=== PATIENT | female | born 1950 | race Caucasian/White ===

== ENCOUNTER 2023-03-05 11:48 | Outpatient (OUT) | payer MEDICARE, SELFPAY ==
[2023-03-05 12:34] LABS: Estimated Average Glucose 200 mg/dL; Glycohemoglobin A1C 8.6 % (4.5-6.2)
== END 2023-03-05 11:49 | disposition home or self-care (01) ==
LOC: LAB 11:52
PROVIDERS: PCP Internal Medicine; Visit Provider Internal Medicine
DX: E11.65 Type 2 diabetes mellitus with hyperglycemia (principal)
CPT/HCPCS: 36415; 83036

== ENCOUNTER 2023-06-26 08:29 | Outpatient (OUT) | payer MEDICARE, SELFPAY ==
--- NOTE | 2023-06-26 08:32 | MM_ITS ---
Patient Name: JIM HALLMAN MR#: [id number] : 1950 Exam Date: 06/26/2023 Ordering Doctor: DR Loco Denis D.O. RADIOLOGY REPORT PROCEDURE: MM TOMOSYNTHESIS SCREENING BI COMPARISON: MG MAMM SCREEN 3D JOSE C CAD, 06/25/2022. MG MAMM SCREEN 3D JOSE C CAD, 06/23/2021. MG MAMM SCREEN JOSE C W CAD, 03/28/2020. MG MAMM JOSE C SCRN W CAD DIG, 10/22/2013. INDICATIONS: Screening Calculator Name NCI Breast Cancer Risk Assessment Tool 5 Year Breast Cancer Risk 2.40% Lifetime Breast Cancer Risk 6.60% Personal Breast Cancer No Personal Ovarian Cancer No Treatments None Family Cancers Aunt-maternal with breast cancer at age ~40. LOCATION: [facility] BREAST COMPOSITION: Scattered areas fibroglandular density. FINDINGS: DIAGNOSTIC CATEGORY 0--INCOMPLETE: NEED ADDITIONAL IMAGING EVALUATION. RIGHT BREAST: No significant suspicious finding. Scattered benign-appearing calcifications are present. No significant change has occurred. LEFT BREAST: 6 x 5 x 4 mm nodule within the anterior lower-inner quadrant. Spot magnification views and ultrasound evaluation are recommended. Stable, scattered benign-appearing calcifications are present. RECOMMENDATIONS: ADDITIONAL MAMMOGRAPHIC VIEWS REQUIRED: LEFT BREAST - LEFT CRANIOCAUDAL SPOT MAGNIFICATION VIEW - LEFT OBLIQUE SPOT MAGNIFICATION VIEW - ULTRASOUND: LEFT BREAST PLEASE NOTE: A NORMAL MAMMOGRAM DOES NOT EXCLUDE THE POSSIBILITY OF BREAST CANCER. A CLINICALLY SUSPICIOUS PALPABLE LUMP SHOULD BE BIOPSIED. Dictated by: Rafi Campbell M.D. on 07/02/2023 at 12:03 Approved by: Rafi Campbell M.D. on 07/02/2023 at 12:37
== END 2023-06-26 08:30 | disposition home or self-care (01) ==
LOC: LAB 08:29
PROVIDERS: PCP Internal Medicine; Visit Provider Internal Medicine
DX: E11.65 Type 2 diabetes mellitus with hyperglycemia (principal); I10 Essential (primary) hypertension; E78.01 Familial hypercholesterolemia; E06.3 Autoimmune thyroiditis; Z79.899 Other long term (current) drug therapy; Z12.31 Encounter for screening mammogram for malignant neoplasm of breast; Z80.3 Family history of malignant neoplasm of breast
CPT/HCPCS: 77063; 77067

== ENCOUNTER 2023-07-01 08:59 | Outpatient (OUT) | payer MEDICARE, SELFPAY ==
[2023-07-01 09:43] LABS: Basophils Percent Auto 0.5 % (0.2-2.0); Eosinophils Absolute Auto 0.2 10^3/uL (0.0-0.7); Eosinophils Percent Auto 2.4 % (0.9-7.0); Hematocrit 33.8 % (36.0-48.0); Immature Granulocytes Abs Auto 0.02 10^3/uL (0.00-0.03); Immature Granulocytes Pct Auto 0.3 % (0.0-0.5); Lymphocytes Absolute Auto 1.8 10^3/uL (1.2-3.8); Lymphocytes Percent Auto 28.1 % (20.5-60.0); Mean Corpuscular HGB Conc 32.5 g/dL (29.9-35.2); Mean Corpuscular Volume 92.1 fL (81.0-99.0); Mean Platelet Volume 9.5 fL (9.5-13.5); Monocytes Absolute Auto 0.3 10^3/uL (0.3-0.8); Monocytes Percent Auto 5.4 % (1.7-12.0); Neutrophils Percent Auto 63.3 % (43.0-75.0); Platelet Count 297 10^3/uL (150-450); Red Blood Count 3.67 10^6/uL (4.20-5.40); White Blood Count 6.3 10^3/uL (4.0-11.0)
[2023-07-01 10:02] LABS: Microalbumin Urine Random 3.7 mg/dL (<=30.0)
[2023-07-01 10:11] LABS: Alanine Aminotransferase 28 U/L (14-59); Anion Gap 11.9; BUN Creatinine Ratio 22.1; Calcium 8.3 mg/dL (8.5-10.1); Carbon Dioxide 28.4 mmol/L (21.0-32.0); Chloride 104 mmol/L (98-107); Chol HDL Ratio 3.5; Cholesterol 154 mg/dL (<=200); Estimated GFR (African America 57 (>=60); Estimated GFR (Non-African Ame 47 (>=60); Glucose 140 mg/dL (74-106); HDL Cholesterol 44 mg/dL (40-60); Potassium 4.3 mmol/L (3.5-5.1); Sodium 140 mmol/L (136-145); Triglycerides 159 mg/dL (<=150); VLDL CHOLESTEROL 31.8 mg/dL
[2023-07-01 10:15] LABS: Estimated Average Glucose 163 mg/dL; Glycohemoglobin A1C 7.3 % (4.5-6.2)
[2023-07-01 10:42] LABS: Thyroid Stimulating Hormone 0.163 uIU/mL (0.358-3.740)
== END 2023-07-01 09:00 | disposition home or self-care (01) ==
LOC: LAB 08:59
PROVIDERS: PCP Internal Medicine; Visit Provider Internal Medicine
DX: E11.65 Type 2 diabetes mellitus with hyperglycemia (principal); I10 Essential (primary) hypertension; E78.01 Familial hypercholesterolemia; E06.3 Autoimmune thyroiditis; Z79.899 Other long term (current) drug therapy
CPT/HCPCS: 36415; 80048; 80061; 82043; 83036; 84443; 84460; 85025

== ENCOUNTER 2023-07-15 09:11 | Outpatient (OUT) | payer MEDICARE, SELFPAY ==
--- NOTE | 2023-07-15 09:14 | US_ITS ---
Patient Name: JIM HALLMAN MR#: [id number] : 1950 Exam Date: 07/15/2023 Ordering Doctor: DR Loco Denis D.O. RADIOLOGY REPORT PROCEDURE: MM DIAGNOSTIC MAMMO UNILAT LT, 07/15/2023, 09:28 US BREAST LT LIMITED, 07/15/2023, 09:40 COMPARISON: MM TOMOSYNTHESIS SCREENING BI, 06/26/2023. INDICATIONS: Abnormal Mammogram Of Left Breast Calculator Name NCI Breast Cancer Risk Assessment Tool 5 Year Breast Cancer Risk 2.40% Lifetime Breast Cancer Risk 6.60% Personal Breast Cancer No Personal Ovarian Cancer No Treatments None Family Cancers Aunt-maternal with breast cancer at age ~40. LOCATION: [facility] BREAST COMPOSITION: Scattered areas fibroglandular density. FINDINGS: DIAGNOSTIC CATEGORY 4--SUSPICIOUS FOR MALIGNANCY. FINDING DOES NOT EXHIBIT CLASSIC FINDINGS OF BREAST CANCER: Spot compression views demonstrate a persistent 7 x 8 x 7 mm well-circumscribed mildly lobular nodule adjacent to the skin lower inner quadrant of left anterior breast. Ultrasound demonstrates a focal area of hyper echogenicity contiguous with the epidermis measuring 8.6 x 6.4 x 2.3 mm. This lesion demonstrates isovascularity to the surrounding tissues. Given the proximity of the lesion to the skin surface, this lesion is not amenable to a core biopsy as sampling of the skin would likely result. Therefore 2 options are open surgical biopsy or fine needle aspiration. RECOMMENDATIONS: ULTRASOUND-GUIDED fine needle ASPIRATION: LEFT BREAST PLEASE NOTE: A NORMAL MAMMOGRAM DOES NOT EXCLUDE THE POSSIBILITY OF BREAST CANCER. A CLINICALLY SUSPICIOUS PALPABLE LUMP SHOULD BE BIOPSIED. Dictated by: Rusty Galeano MD on 07/15/2023 at 09:54 Approved by: Rusty Galeano MD on 07/15/2023 at 09:57
== END 2023-07-15 09:12 | disposition home or self-care (01) ==
LOC: MAMMO 09:12
PROVIDERS: PCP Internal Medicine; Visit Provider Internal Medicine
DX: R92.8 Other abnormal and inconclusive findings on diagnostic imaging of breast (principal); N63.24 Unspecified lump in the left breast, lower inner quadrant
CPT/HCPCS: 76642; 77065

== ENCOUNTER 2023-07-16 09:11 | Day surgery (SDC) | payer MEDICARE, SELFPAY ==
--- NOTE | 2023-07-16 09:16 | US_ITS ---
[address] [address] Patient Name: JIM HALLMAN MRN: [id number] date: 1950 Sex: F Assigned Patient Location: US Current Patient Location: Accession/Order Number: [id number] Exam Date: 07/16/2023 09:30 Report Date: 07/16/2023 11:29 At the request of: NON-STAFF PHYSICIAN Procedure: US biopsy FNA EXAMINATION: US biopsy FNA HISTORY: Abnormal Mammogram COMPARISON: No relevant comparison available. TECHNIQUE: After obtaining informed consent, an ultrasound-guided biopsy was performed in the usual sterile manner. FINDINGS: IMAGING: Ultrasound BIOPSY NEEDLE: 25-gauge, 2 inch SPECIMEN TYPE, #, LOCATION: 3 fine-needle aspirates, superficial left breast mass MEDICATION: 2 cc 1% buffered lidocaine COMPLICATIONS: None. LABORATORY: Pathology OTHER: Negative. US/US biopsy FNA IMPRESSION: Uneventful ultrasound guided biopsy. The patient was instructed to obtain follow up care and biopsy results from the referring physician. Electronically authenticated by: SANTINO CHAKRABORTY Date: 07/16/2023 11:29
[2023-07-16 09:30] VITALS: BP 107/80; PULSE 90; O2SAT 97
[2023-07-16] MEDS: LIDOCAINE HCL 10 ML, SODIUM BICARBONATE 1 MEQ INJ (10:20)
--- NOTE | 2023-07-16 11:17 | SUR.PREOP ---
07/15/23 Instructed pt on procedure, date, time, and prep.
== END 2023-07-16 10:45 | disposition home or self-care (01) ==
LOC: US 09:11
PROVIDERS: Radiology Diagnostic Radiology; PCP Internal Medicine
DX: N63.25 Unspecified lump in the left breast, overlapping quadrants (principal)
CPT/HCPCS: 10005; 88173

== ENCOUNTER 2023-10-18 13:07 | Outpatient (OUT) | payer MEDICARE, SELFPAY ==
--- OUTSIDE RECORDS SUMMARY | 2023-10-18 13:22 | XMS_ITS | CCD ---
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 Name Role Phone Loco Denis Unavailable Devon DEGROOT Attending Unavailable NILL, Raheem Santana Attending Unavailable NILL, Raheem Santana Attending Unavailable NILL, Raheem Santana Attending Unavailable BALL, LOCO Referring Unavailable BALL, DR SALCEDO Admitting Unavailable BALL, DR SALCEDO Attending Unavailable BALL, DR SALCEDO Primary Care Unavailable BALL, DR SALCEDO Primary Care Unavailable NILL ., DR QUEVEDO Admitting Unavailable NILL ., DR QUEVEDO Attending Unavailable NILL ., DR QUEVEDO Consulting Unavailable SIENA, KENNETH Consulting Unavailable ELEAZAR, YVETTE Consulting Unavailable BALL, DR SALCEDO Admitting Unavailable BALL, DR SALCEDO Attending Unavailable BALL, DR SALCEDO Consulting Unavailable BALL, DR SALCEDO Primary Care Unavailable LEEPER, DR SANTINO Appiah Consulting Unavailable BALL, DR SALCEDO Admitting Unavailable BALL, DR SALCEDO Attending Unavailable BALL, DR SALCEDO Consulting Unavailable BALL, DR SALCEDO Primary Care Unavailable BALL, DR SALCEDO Admitting Unavailable BALL, DR SALCEDO Primary Care Unavailable BALL, DR SALCEDO Attending Unavailable BALL, DR SALCEDO Consulting Unavailable BALL, DR SALCEDO Admitting Unavailable BALL, DR SALCEDO Attending Unavailable BALL, DR SALCEDO Consulting Unavailable BALL, DR SALCEDO Primary Care Unavailable LISSETTEER, DR SOTO Santana Consulting Unavailable BALL, DR SALCEDO Admitting Unavailable BALL, DR SALCEDO Attending Unavailable BALL, DR SALCEDO Consulting Unavailable BALL, DR SALCEDO Primary Care Unavailable Allergies Allergy Classification Reported Allergen(s) Allergy Type Date of Onset Reaction(s) Facility (5 sources) Penicillin; 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: [penicillin] Drug Allergy Unknown [facility] Repository (20 sources) Substance with sulfonamide structure and antibacterial mechanism of action (substance) Drug allergy Unknown [facility] Other (2 sources) Alfentanil; 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: [Alfenta] Drug Allergy [facility] Repository (2 sources) Midazolam; 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: [Versed] Drug Allergy [facility] Repository (1 source) Penicillins; 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: [penicillins] Propensity to adverse reactions (disorder) [facility] Repository (1 source) Sulfonamides (Antibiotic); 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: [sulfa drugs] Propensity to adverse reactions (disorder) [facility] Repository (1 source) Sulfonamides (Antibiotic) Drug allergy (disorder) [facility] Repository (18 sources) Substance with penicillin structure and antibacterial mechanism of action (substance) Drug allergy Unknown Neronote Other Medications Current Medications Medication Drug Class(es) Dates Sig (Normalized) Sig (Original) amLODIPine 5 mg oral tablet (18 sources) Dihydropyridine Calcium Channel Donna take 1 tablet by mouth once daily amLODIPine Besylate 5 MG TAKE 1 TABLET BY MOUTH EVERY DAY Active aspirin 81 mg oral tablet (20 sources) Platelet Aggregation Inhibitor, Nonsteroidal Anti-inflammatory Drug take 1 tablet by mouth once daily Aspirin EC 81 MG 1 tablet Orally Once a day Active atorvastatin 40 mg oral tablet (20 sources) HMG-CoA Reductase Inhibitor take 1 tablet by mouth once daily in the evening Atorvastatin Calcium 40 MG TAKE 1 TABLET BY MOUTH EVERY DAY IN THE EVENING for 90 Active azithromycin 250 mg oral tablet (12 sources) Macrolide Antimicrobial Start: 07-19-2023 Azithromycin 250 MG as directed Orally daily for 5 days Jul, Active Azithromycin 250 MG as directed Orally daily for 5 days Active carvedilol 12.5 mg oral tablet (20 sources) alpha-Adrenergic Donna, beta-Adrenergic Donna Carvedilol 12.5 MG TAKE 1 TABLET BY MOUTH TWICE A DAY WITH FOOD FOR 30 DAYS for 90 Active chlorthalidone 25 mg oral tablet (20 sources) Thiazide-like Diuretic Start: 09-27-2022 Chlorthalidone 25 MG 1 Orally qod for 30 days Sep, Active Start: 09-27-2022 take 0.5 tablet by m outh once daily Chlorthalidone 25 MG 1/2 tablet Orally Once a day Sep, Active glipiZIDE (20 sources) Sulfonylurea glipiZIDE ER 10 MG TAKE 2 TABLETS BY MOUTH EVERY DAY FOR 30 DAYS for 90 Active take 2 tablets by mouth once wilmer ly glipiZIDE ER TAKE 2 TABLETS BY MOUTH EVERY DAY FOR 30 DAYS Active take 1 tablet by florian th every twenty-four hours glipiZIDE ER 10 MG [address] Orally Once a day Active hydroCHLOROthiazide 25 mg oral tablet (2 sources) Thiazide Diuretic Start: 08-21-2023 take 1 tablet by mouth every twenty-four hours hydroCHLOROthiazide 25 MG 1 tablet in the morning Orally Once a day for 90 days Aug, Active levothyroxine sodium 0.1 mg oral tablet (20 sources) l-Thyroxine take 1 tablet by mouth once daily Levothyroxine Sodium 100 MCG TAKE 1 TABLET BY MOUTH ON AN EMPTY STOMACH ONCE A DAY for 90 Active Levothyroxine So dium 100 MCG TAKE 1 TABLET BY MOUTH ONCE A DAY ON AN EMPTY STOMACH Orally Once a day for 30 days Active take 1 tablet by mouth once haseeb y Levothyroxine Sodium 112 MCG TAKE 1 TABLET BY MOUTH ONCE A DAY ON AN EMPTY STOMACH Active take 1 tablet by mouth once haseeb y Levothyroxine Sodium 137 MCG 1 tablet Orally Once a day, on an empty stomach for 30 days Active take 1 tablet by florian th once daily in the morning Levothyroxine Sodium 125 MCG 1 tablet in the morning on an empty stomach Orally Once a day Active lisinopril 40 mg oral tablet (20 sources) Angiotensin Converting Enzyme Inhibitor Lisinopril 40 MG KELLY E 1 TABLET BY MOUTH EVERY DAY Orally Once a day for 30 days Active metFORMIN hydrochloride 1000 mg oral tablet (20 sources) Biguanide metFORMIN HCl 10 00 MG 1 Orally Once a day Active take 1 tablet by mouth twice wilmer ly metFORMIN HCl 1000 MG TAKE 1 TABLET BY MOUTH TWICE A DAY for 90 Active OneTouch Ultra - (20 sources) OneTouch Ultra - USE TO TEST BLOOD SUGAR DAILY for 90 Active OneTouch Ultra - Use to test home BS In Vitro daily for 30 days Active pioglitazone 15 mg oral tablet (18 sources) Peroxisome Proliferator Receptor alpha Agonist, Peroxisome Proliferator Receptor gamma Agonist, Thiazolidinedione Start: 03-07-2023 take 1 tablet by mouth every twenty-four hours Pioglitazone HCl 15 MG 1 tablet Orally Once a day Mar, Active Problems Active Problems Problem Classification Problem Date Documented Date Episodic/Chronic Abdominal hernia (1 source) Diaphragmatic hernia without obstruction or gangrene; 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: [DIAPH HERNIA W/O OBST/GANGRENE] Onset: 01-01-2023 Episodic Acute bronchitis (3 sources) Acute bronchitis due to other specified organisms Episodic Calculus of urinary tract (20 sources) History of calculus of kidney; 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: [Personal history of urinary calculi] Episodic Deficiency and other anemia (5 sources) Anemia, unspecified; 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: [ANEMIA UNSPECIFIED] Onset: 11-25-2022 Episodic Diabetes mellitus with complications (20 sources) Type 2 diabetes mellitus; 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: [Type 2 diabetes mellitus with hyperglycemia] Onset: 01-16-2019 Chronic Diabetes mellitus without complication (1 source) Type 2 diabetes mellitus without complications; 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: [TYPE 2 DM WITHOUT COMPLICATIONS] Onset: 01-01-2023 Chronic Disorders of lipid metabolism (20 sources) Pure hypercholesterolemia; 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: [Familial hypercholesterolemia] Onset: 06-16-2022 Chronic Diverticulosis and diverticulitis (1 source) Diverticulosis of large intestine without perforation or abscess without bleeding; 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: [DVRTCLOS LG INT NO PERF/ABSC W/O BL] Onset: 01-01-2023 Chronic Essential hypertension (20 sources) Essential hypertension; 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: [Essential (primary) hypertension] Onset: 06-16-2022 Chronic Mood disorders (20 sources) Recurrent major depression; 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: [Major depressive disorder, recurrent, unspecified] Chronic Occlusion or stenosis of precerebral arteries (20 sources) Right carotid artery stenosis; 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: [Occlusion and stenosis of right carotid artery] Chronic Osteoarthritis (20 sources) Idiopathic osteoarthritis; 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, right knee] Onset: 01-26-2014 Chronic Other aftercare (4 sources) H/O: high risk medication; 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: [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] Episodic Other aftercare (1 source) group home (current) use of aspirin; 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: [PRISON CURRENT USE OF ASPIRIN] Onset: 01-01-2023 Episodic Other aftercare (1 source) group home (current) use of oral hypoglycemic drugs; 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: [PRISON USE ORAL HYPOGLYCEMIC DX] Onset: 01-01-2023 Episodic Other aftercare (3 sources) Other [facility] (current) drug therapy; 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: [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] Onset: 01-01-2023 Episodic Other non-traumatic joint disorders (1 source) Pain in right hip; 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: [PAIN IN RIGHT HIP] Onset: 11-25-2022 Episodic Other nutritional; endocrine; and metabolic disorders (4 sources) Obesity; 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: [Obesity, unspecified] Chronic Other nutritional; endocrine; and metabolic disorders (18 sources) Obesity caused by energy imbalance; 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: [Other obesity due to excess calories] Chronic Other nutritional; endocrine; and metabolic disorders (20 sources) Body mass index 30+ - obesity; 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: [Body mass index (BMI) 31.0-31.9, adult] Chronic Other nutritional; endocrine; and metabolic disorders (2 sources) Other obesity due to excess calories Chronic Other nutritional; endocrine; and metabolic disorders (2 sources) Body mass index (BMI) 32.0-32.9, adult Chronic Other screening for suspected conditions (not mental disorders or infectious disease) (7 sources) Encounter for screening mammogram for malignant neoplasm of breast; 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: [Other abnormal and inconclusive findings on diagnostic imaging of breast] Onset: 06-25-2022 Episodic Other upper respiratory disease (4 sources) Allergic rhinitis; 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: [Vasomotor rhinitis] Chronic Spondylosis; intervertebral disc disorders; other back problems (20 sources) Lumbosacral spondylosis with radiculopathy; 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: [Other spondylosis with radiculopathy, lumbosacral region] Onset: 12-28-2016 Chronic Thyroid disorders (20 sources) Autoimmune hypothyroidism; 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: [Autoimmune thyroiditis] Onset: 01-01-2023 Chronic Unclassified (3 sources) LOW BACK PAIN, UNSPECIFIED; 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: [LOW BACK PAIN, UNSPECIFIED] Onset: 11-22-2022 Past or Other Problems Problem Classification Problem Date Documented Da te Episodic/Chronic Residual codes; unclassified (1 source) Family history of malignant neoplasm of breast; 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: [FAMILY HX MALIG NEOPLASM OF BREAST] Onset: 06-27-2022 Episodic Unclassified (1 source) LOW BACK PAIN, UNSPECIFIED; 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: [LOW BACK PAIN, UNSPECIFIED] Onset: 11-21-2022 Unclassified (1 source) Acute left-sided low back pain without sciatica M54.50 Results Test Name Value Interpretation Reference Range Facility Outside Colonoscopyon 2022 Outside Colonoscopy [id number]: 127 Normal [facility] Reminderson 12-27-2022 Reminders - From: Bethany Smith LPN To: N - Clinical; Sent: 12/27/2022 10:52:47 EDT Show up: 11/26/2032 07:00:00 EDT Subject: colonoscopy recall Due Date/Time: 12/26/2032 07:00:00 EDT Reminder/Recall Patient due for screening colonoscopy 12/26/2032. Normal [facility] POINT OF CARE GLUCOSEon 05-2 Glucose [Mass/Vol] 261 mg/dL Critically high 74-106 [facility] Comment on above: Performed By: #### P OCGLUC #### [facility] [address] [place] [address] Dr. Rusty Armstrong Consent for Procedure/Surger yon 12-06-2022 Consent for Procedure/Surgery [id number]: 127 Normal [facility] Facesheeton 12-06-2022 Facesheet [id number]: 127 Normal [facility] Ambulatory Visit Summaryon 0 12-05-2022 Ambulatory Visit Summary HILDA COOL :1950 Visit Date:12/05/2022 Ambulatory Visit Instructions Your Diagnosis Anemia Your Care Team Attending Physician - BERNARD ZUNIGA, Raheem Santana Primary Care Physician - LOCO DENIS DO This Is Your Medications List Contact prescribing physician if questions or concerns aspirin (aspirin 81 mg Oral EC Tab) atorvastatin carvedilol (carvedilol 12.5 mg Tab) chlorthalidone (chlorthalidone 25 mg Tab) glipiZIDE (glipiZIDE 10 mg ER Tab) levothyroxine lisinopril metformin potassium bicarbonate (Effer-K 25 mEq oral tablet, effervescent) Procedures Performed ESWL of kidney (02/04/2020), Colonoscopy (02/13/2012), Cystoscopy (12/07/2011), ESWL of kidney (06/08/2010), section, section, section, Cystoscopy. Discharge Vitals Heart Rate (Peripheral) 70 Respiratory Rate 16 Blood Pressure 132/82 Height 162.5 cm Height 64 in Weight 81.8 kg Weight 179.96 lb BMI 30.98 Medications What How Much When Instructions Unchanged aspirin (aspirin 81 mg Oral EC Tab) 1 Tablets By Mouth Every day Contact prescribing physician if questions or concerns Unchanged atorvastatin 40 Milligram By Mouth Every day Contact prescribing physician if questions or concerns Unchanged carvedilol (carvedilol 12.5 mg Tab) 1 Tablets By Mouth 2 times a day Contact prescribing physician if questions or concerns Unchanged chlorthalidone (chlorthalidone 25 mg Tab) 0.5 Tablets By Mouth Every day Contact prescribing physician if questions or concerns Unchanged glipiZIDE (glipiZIDE 10 mg ER Tab) 1 Tablets By Mouth Every day Contact prescribing physician if questions or concerns Unchanged levothyroxine 125 Microgram By Mouth Every day Contact prescribing physician if questions or concerns Unchanged lisinopril 40 Milligram By Mouth Every day Contact prescribing physician if questions or concerns Unchanged metformin 1,000 Milligram By Mouth 2 times a day Contact prescribing physician if questions or concerns Unchanged potassium bicarbonate (Effer-K 25 mEq oral tablet, effervescent) 1 Tablets By Mouth 2 times a day Contact prescribing physician if questions or concerns Allergies Alfenta (Mild) Versed (Mild) penicillins (Moderate) sulfa drugs (Moderate) Problems Ongoing - Any problem that you are currently receiving treatment for. Anemia Autoimmune hypothyroidism BMI 30.0-30.9,adult Essential hypertension History of nephrolithiasis Lumbosacral spondylosis with radiculopathy Pure hypercholesterolemia Recurrent major depression Right carotid artery stenosis BRII (stress urinary incontinence, female) Type 2 diabetes mellitus Normal [facility] Physician Referralon 023 Physician Referral [id number]: 127 Normal [facility] Physician Referralon 023 Physician Referral [id number]: 127 Normal [facility] FOLATE ([facility])on 3 Folate >20.0 Normal >3.[address] [facility] Comment on above: Result Comment: A se rum folate concentration of less than 3.1 ng/mL is considered to represent clinical deficiency. Performed By: #### F ETIBC, FERR, B12FOL #### [facility] [address] [place] [address] Dr. Rusty Armstrong CBC AUTO DIFFon 11-20-2022 BASO # 0.0 103/ul Normal 0.0-0.[address] [facility] Comment on above: Performed By: #### F ETIBC, FERR, B12FOL #### [facility] [address] [place] [address] Dr. Rusty Armstrong Basophils/100 WBC (Bld) 0.7 % Normal 0.2-2.0 [facility] Comment on above: Performed By: #### F ETIBC, FERR, B12FOL #### [facility] [address] [place] [address] Dr. Rusty Armstrong EO # 0.2 103/ul Normal 0.0-0.7 [facility] Comment on above: Performed By: #### F ETIBC, FERR, B12FOL #### [facility] [address] [place] [address] Dr. Rusty Armstrong Eosinophils/100 WBC (Bld) 3.1 % Normal 0.9-7.[address] [facility] Comment on above: Performed By: #### F ETIBC, FERR, B12FOL #### [facility] [address] [place] [address] Dr. Rusty Armstrong Erythrocyte distribution width (RBC) [Ratio] 12.6 % Normal 11.0-15.[address] [facility] Comment on above: Performed By: #### F ETIBC, FERR, B12FOL #### [facility] [address] [place] [address] Dr. Rusty Armstrong Hematocrit (Bld) [Volume fraction] 33.2 % Critically low 36.0-48.[address] [facility] Comment on above: Performed By: #### F ETIBC, FERR, B12FOL #### [facility] [address] [place] [address] Dr. Rusty Armstrong Hemoglobin (Bld) [Mass/Vol] 11.5 g/dL Critically low 12.0-16.[address] [facility] Comment on above: Performed By: #### F ETIBC, FERR, B12FOL #### [facility] [address] [place] [address] Dr. Rusty Armstrong IG # 0.01 10e3/ul Normal 0.00-0.[address] [facility] Comment on above: Performed By: #### F ETIBC, FERR, B12FOL #### [facility] [address] [place] [address] Dr. Rusty Armstrong IG % 0.2 % Normal 0.0-0.[address] [facility] Comment on above: Performed By: #### F ETIBC, FERR, B12FOL #### [facility] [address] [place] [address] Dr. Rusty Armstrong LYMPH # 1.7 103/ul Normal 1.2-3.[address] [facility] Comment on above: Performed By: #### F ETIBC, FERR, B12FOL #### [facility] [address] [place] [address] Dr. Rusty Armstrong Lymphocytes/100 WBC (Bld) 31.4 % Normal 20.5-60.[address] [facility] Comment on above: Performed By: #### F ETIBC, FERR, B12FOL #### [facility] [address] [place] [address] Dr. Rusty Armstrong MANUAL DIFF REQ NO Normal [facility] Comment on above: Performed By: #### F ETIBC, FERR, B12FOL #### [facility] [address] [place] [address] Dr. Rusty Armstrong MCH (RBC) [Entitic mass] 30.2 pg Normal 26.7-34.[address] [facility] Comment on above: Performed By: #### F ETIBC, FERR, B12FOL #### [facility] [address] [place] [address] Dr. Rusty Armstrong MCHC (RBC) [Mass/Vol] 34.6 g/dL Normal 29.9-35.[address] [facility] Comment on above: Performed By: #### F ETIBC, FERR, B12FOL #### [facility] [address] [place] [address] Dr. Rusty Armstrong MCV (RBC) [Entitic vol] 87.1 fL Normal 81.0-99.0 [facility] Comment on above: Performed By: #### F ETIBC, FERR, B12FOL #### [facility] [address] [place] [address] Dr. Rusty Armstrong MONO # 0.4 103/ul Normal 0.3-0.[address] [facility] Comment on above: Performed By: #### F ETIBC, FERR, B12FOL #### [facility] [address] [place] [address] Dr. Rusty Armstrong Monocytes/100 WBC (Bld) 6.5 % Normal 1.7-12.[address] [facility] Comment on above: Performed By: #### F ETIBC, FERR, B12FOL #### [facility] [address] [place] [address] Dr. Rusty Armstrong NEUT # 3.2 103/ul Normal 1.4-6.5 [facility] Comment on above: Performed By: #### F ETIBC, FERR, B12FOL #### [facility] [address] [place] [address] Dr. Rusty Armstrong Neutrophils/100 WBC (Bld) 58.1 % Normal 43.0-75.[address] [facility] Comment on above: Performed By: #### F ETIBC, FERR, B12FOL #### [facility] [address] [place] [address] Dr. Rusty Armstrong Platelet mean volume (Bld) [Entitic vol] 9.2 fL Critically low 9.5-13.5 [facility] Comment on above: Performed By: #### F ETIBC, FERR, B12FOL #### [facility] [address] [place] [address] Dr. Rusty Armstrong PLT 317 103/ul Normal 150-450 [facility] Comment on above: Performed By: #### F ETIBC, FERR, B12FOL #### [facility] [address] [place] [address] Dr. Rusty Armstrong RBC 3.81 106/ul Critically low 4.20-5.40 [facility] Comment on above: Performed By: #### F ETIBC, FERR, B12FOL #### [facility] [address] [address] [address] Rusty Armstrong WBC 5.6 103/ul Normal 4.0-11.[address] [facility] Comment on above: Performed By: #### F ETIBC, FERR, B12FOL #### [facility] [address] [address] [address] Rusty Armstrong FERRITINon 11-20-2022 Ferritin [Mass/Vol] 264.0 ng/mL Critically high 8.0-252.[address] [facility] Comment on above: Performed By: #### V ITB12, FERR, FETIBC #### [facility] [address] [address] [address] Rusty Armstrong GLYCOHEMOGLOBIN A1Con 2022 ADA RECOMMENDATION SEE BELOW Normal [facility] Comment on above: Result Comment: ADA RECOMMENDED LIMIT 4.0 - 6.0 ADA THERAPEUTIC TARGET < 7.0 ACTION SUGGESTED > 7.0 Performed By: #### F ETIBC, FERR, B12FOL #### [facility] [address] [address] [address] Rusty Armstrong Glucose [Mass/Vol] 174 mg/dL Normal [facility] Comment on above: Performed By: #### F ETIBC, FERR, B12FOL #### [facility] [address] [address] [address] Rusty Armstrong HbA1c (Bld) [Mass fraction] 7.7 % Critically high 4.5-6.[address] [facility] Comment on above: Performed By: #### F ETIBC, FERR, B12FOL #### [facility] [address] [address] [address] Rusty Armstrong IRON AND TIBCon 11-20-2022 % SATURATION 22.6 % Normal [facility] Comment on above: Performed By: #### V ITB12, FERR, FETIBC #### [facility] [address] [address] [address] Rusty Armstrong Iron [Mass/Vol] 76.0 ug/dL Normal 50.0-170.0 [facility] Comment on above: Performed By: #### V ITB12, FERR, FETIBC #### [facility] [address] [address] [address] Rusty Armstrong TIBC DIRECT 336.0 ug/dL Normal 250.0-450.0 [facility] Comment on above: Performed By: #### V ITB12, FERR, FETIBC #### [facility] [address] [address] [address] Rusty Armstrong TSHon 11-20-2022 TSH 0.049 uIU/mL Critically low 0.358-3.740 [facility] Comment on above: Performed By: #### T SH #### [facility] [address] [place] [address] Dr. Rusty Armstrong VITAMIN B12on 11-20-2022 Cobalamin (Vitamin B12) [Mass/Vol] 372.0 pg/mL Normal 193.0-986.[address] [facility] Comment on above: Performed By: #### V ITB12, FERR, FETIBC #### [facility] [address] [place] [address] Dr. Rusty Armstrong XR LSPINE W_OBLS AND FLEX_EX Ton 11-20-2022 XR LSPINE W_OBLS AND FLEX_EXT EXAMINATION: XR LSPINE W_OBLS AND FLEX_EXT HISTORY: Lumbosacral spondylosis with radiculopathy ; chronic lumbar pain radiating into right leg COMPARISON: No relevant comparison available. FINDINGS: BONES: Mild degenerative facet arthropathy L4-L5, L5-S1. No scoliosis, fracture, or visible bony lesion. No change in alignment during flexion and extension. DISC SPACES: Mild narrowing at all lumbar levels. PARASPINOUS: No paraspinous abnormality is seen. OTHER: Negative. IMPRESSION: 1. Multilevel mild degenerative disc disease. 2. Mild-moderate degenerative facet arthropathy of the lower lumbar spine. Electronically authenticated by: SOTO SCHREIBER Date: 2022-11-20 15:34 Normal [facility] CBC AUTO DIFFon 08-31-2022 BASO # 0.0 103/ul Normal 0.0-0.[address] [facility] Comment on above: Performed By: #### F ETIBC, FERR, B12FOL #### [facility] [address] [place] [address] Dr. Rusty Armstrong Basophils/100 WBC (Bld) 0.3 % Normal 0.2-2.[address] [facility] Comment on above: Performed By: #### F ETIBC, FERR, B12FOL #### [facility] [address] [place] [address] Dr. Rusty Armstrong EO # 0.1 103/ul Normal 0.0-0.7 [facility] Comment on above: Performed By: #### F ETIBC, FERR, B12FOL #### [facility] [address] [place] [address] Dr. Rusty Armstrong Eosinophils/100 WBC (Bld) 1.6 % Normal 0.9-7.[address] [facility] Comment on above: Performed By: #### F ETIBC, FERR, B12FOL #### [facility] [address] [place] [address] Dr. Rusty Armstrong Erythrocyte distribution width (RBC) [Ratio] 12.7 % Normal 11.0-15.[address] [facility] Comment on above: Performed By: #### F ETIBC, FERR, B12FOL #### [facility] [address] [place] [address] Dr. Rusty Armstrong Hematocrit (Bld) [Volume fraction] 33.5 % Critically low 36.0-48.[address] [facility] Comment on above: Performed By: #### F ETIBC, FERR, B12FOL #### [facility] [address] [place] [address] Dr. Rusty Armstrong Hemoglobin (Bld) [Mass/Vol] 12.2 g/dL Normal 12.0-16.0 [facility] Comment on above: Performed By: #### F ETIBC, FERR, B12FOL #### [facility] [address] [place] [address] Dr. Rusty Armstrong IG # 0.01 10e3/ul Normal 0.00-0.[address] [facility] Comment on above: Performed By: #### F ETIBC, FERR, B12FOL #### [facility] [address] [place] [address] Dr. Rusty Armstrong IG % 0.1 % Normal 0.0-0.[address] [facility] Comment on above: Performed By: #### F ETIBC, FERR, B12FOL #### [facility] [address] [place] [address] Dr. Rusty Armstrong LYMPH # 1.7 103/ul Normal 1.2-3.8 [facility] Comment on above: Performed By: #### F ETIBC, FERR, B12FOL #### [facility] [address] [place] [address] Dr. Rusty Armstrong Lymphocytes/100 WBC (Bld) 24.6 % Normal 20.5-60.0 [facility] Comment on above: Performed By: #### F ETIBC, FERR, B12FOL #### [facility] [address] [place] [address] Dr. Rusty Armstrong MANUAL DIFF REQ NO Normal [facility] Comment on above: Performed By: #### F ETIBC, FERR, B12FOL #### [facility] [address] [place] [address] Dr. Rusty Armstrong MCH (RBC) [Entitic mass] 29.9 pg Normal 26.7-34.[address] [facility] Comment on above: Performed By: #### F ETIBC, FERR, B12FOL #### [facility] [address] [place] [address] Dr. Rusty Armstrong MCHC (RBC) [Mass/Vol] 36.4 g/dL Critically high 29.9-35.[address] [facility] Comment on above: Performed By: #### F ETIBC, FERR, B12FOL #### [facility] [address] [place] [address] Dr. Rusty Armstrong MCV (RBC) [Entitic vol] 82.1 fL Normal 81.0-99.[address] [facility] Comment on above: Performed By: #### F ETIBC, FERR, B12FOL #### [facility] [address] [place] [address] Dr. Rusty Armstrong MONO # 0.4 103/ul Normal 0.3-0.8 [facility] Comment on above: Performed By: #### F ETIBC, FERR, B12FOL #### [facility] [address] [place] [address] Dr. Rusty Armstrong Monocytes/100 WBC (Bld) 5.2 % Normal 1.7-12.[address] [facility] Comment on above: Performed By: #### F ETIBC, FERR, B12FOL #### [facility] [address] [place] [address] Dr. Rusty Armstrong NEUT # 4.6 103/ul Normal 1.4-6.5 [facility] Comment on above: Performed By: #### F ETIBC, FERR, B12FOL #### [facility] [address] [place] [address] Dr. Rusty Armstrong Neutrophils/100 WBC (Bld) 68.2 % Normal 43.0-75.[address] [facility] Comment on above: Performed By: #### F ETIBC, FERR, B12FOL #### [facility] [address] [place] [address] Dr. Rusty Armstrong Platelet mean volume (Bld) [Entitic vol] 9.4 fL Critically low 9.5-13.5 [facility] Comment on above: Performed By: #### F ETIBC, FERR, B12FOL #### [facility] [address] [place] [address] Dr. Rusty Armstrong PLT 254 103/ul Normal 150-450 [facility] Comment on above: Performed By: #### F ETIBC, FERR, B12FOL #### [facility] [address] [place] [address] Dr. Rusty Armstrong RBC 4.08 106/ul Critically low 4.20-5.40 [facility] Comment on above: Performed By: #### F ETIBC, FERR, B12FOL #### [facility] [address] [place] [address] Dr. Rusty Armstrong WBC 6.7 103/ul Normal 4.0-11.0 [facility] Comment on above: Performed By: #### F ETIBC, FERR, B12FOL #### [facility] [address] [address] [address] Rusty Armstrong FERRITINon 08-31-2022 Ferritin [Mass/Vol] 161.0 ng/mL Normal 8.0-252.[address] [facility] Comment on above: Performed By: #### F ETIBC, FERR, B12FOL #### [facility] [address] [place] [address] Dr. Rusty Armstrong IRON AND TIBCon 08-31-2022 % SATURATION 20.3 % Normal [facility] Comment on above: Performed By: #### F ETIBC, FERR, B12FOL #### [facility] [address] [place] [address] Dr. Rusty Armstrong Iron [Mass/Vol] 72.0 ug/dL Normal 50.0-170.0 [facility] Comment on above: Performed By: #### F ETIBC, FERR, B12FOL #### [facility] [address] [place] [address] Dr. Rusty Armstrong TIBC DIRECT 355.0 ug/dL Normal 250.0-450.0 [facility] Comment on above: Performed By: #### F ETIBC, FERR, B12FOL #### [facility] [address] [place] [address] Dr. Rusty Armstrong TSHon 08-31-2022 TSH 0.055 uIU/mL Critically low 0.358-3.740 [facility] Comment on above: Performed By: #### T SH #### [facility] [address] [place] [address] Dr. Rusty Armstrong VIT B12 AND FOLATEon 023 Cobalamin (Vitamin B12) [Mass/Vol] 413.0 pg/mL Normal 193.0-986.0 [facility] Comment on above: Performed By: #### F ETIBC, FERR, B12FOL #### [facility] [address] [place] [address] Dr. Rusty Armstrong FOLATE 20.10 ng/mL Normal 8.60-58.[address] [facility] Comment on above: Performed By: #### F ETIBC, FERR, B12FOL #### [facility] [address] [address] [address] Rusty Armstrong MG MAMM SCREEN 3D JOSE C CADon 06-25-2022 MG MAMM SCREEN 3D JOSE C CAD Patient: HILDA COOL Exam Date: 06/25/2022 : 1950 Gender:F Ordering : DR LOCO DENIS D.O. Admission #: [id number] Family : Order #: [id number] CLICK HERE TO VIEW EXAM RADIOLOGY REPORT PROCEDURE: MAMMOGRAM SCREENING 3D BILATERAL CAD COMPARISON: MG MAMM SCREEN JOSE C W CAD, 03/28/2020. MG MAMM SCREEN 3D JOSE C CAD, 06/23/2021. INDICATIONS: Screening mammography Calculator Name NCI Breast Cancer Risk Assessment Tool 5 Year Breast Cancer Risk 2.40% Lifetime Breast Cancer Risk 6.90% Personal Breast Cancer No Personal Ovarian Cancer No Treatments None Family Cancers Aunt-maternal with breast cancer at age 40. LOCATION: [facility] BREAST COMPOSITION: Scattered areas fibroglandular density. FINDINGS: DIAGNOSTIC CATEGORY 1--NEGATIVE. NO CHANGE FROM COMPARISON ASSESSMENT. Scattered benign-appearing calcifications are present. RIGHT BREAST: No significant suspicious finding. LEFT BREAST: No significant suspicious finding. RECOMMENDATIONS: ROUTINE MAMMOGRAM AND CLINICAL EVALUATION IN 12 MONTHS. PLEASE NOTE: A NORMAL MAMMOGRAM DOES NOT EXCLUDE THE POSSIBILITY OF BREAST CANCER. A CLINICALLY SUSPICIOUS PALPABLE LUMP SHOULD BE BIOPSIED. Dictated by: Santino Galeano MD on 06/25/2022 at 12:48 Approved by: Santino Galeano MD on 06/25/2022 at 12:50 Normal [facility] CBC AUTO DIFFon 06-11-2022 BASO # 0.0 103/ul Normal 0.0-0.[address] [facility] Comment on above: Performed By: #### F ETIBC, FERR, B12FOL #### [facility] [address] [address] [address] Rusty Armstrong Basophils/100 WBC (Bld) 0.3 % Normal 0.2-2.[address] [facility] Comment on above: Performed By: #### F ETIBC, FERR, B12FOL #### [facility] [address] [address] [address] Rusty Armstrong EO # 0.1 103/ul Normal 0.0-0.[address] [facility] Comment on above: Performed By: #### F ETIBC, FERR, B12FOL #### [facility] [address] [place] [address] Dr. Rusty Armstrong Eosinophils/100 WBC (Bld) 1.6 % Normal 0.9-7.[address] [facility] Comment on above: Performed By: #### F ETIBC, FERR, B12FOL #### [facility] [address] [place] [address] Dr. Rusty Armstrong Erythrocyte distribution width (RBC) [Ratio] 12.8 % Normal 11.0-15.[address] [facility] Comment on above: Performed By: #### F ETIBC, FERR, B12FOL #### [facility] [address] [place] [address] Dr. Rusty Armstrong Hematocrit (Bld) [Volume fraction] 33.5 % Critically low 36.0-48.[address] [facility] Comment on above: Performed By: #### F ETIBC, FERR, B12FOL #### [facility] [address] [place] [address] Dr. Rusty Armstrong Hemoglobin (Bld) [Mass/Vol] 11.6 g/dL Critically low 12.0-16.[address] [facility] Comment on above: Performed By: #### F ETIBC, FERR, B12FOL #### [facility] [address] [place] [address] Dr. Rusty Armstrong IG # 0.02 10e3/ul Normal 0.00-0.03 [facility] Comment on above: Performed By: #### F ETIBC, FERR, B12FOL #### [facility] [address] [place] [address] Dr. Rusty Armstrong IG % 0.3 % Normal 0.0-0.5 [facility] Comment on above: Performed By: #### F ETIBC, FERR, B12FOL #### [facility] [address] [place] [address] Dr. Rusty Armstrong LYMPH # 1.8 103/ul Normal 1.2-3.8 [facility] Comment on above: Performed By: #### F ETIBC, FERR, B12FOL #### [facility] [address] [place] [address] Dr. Rusty Armstrong Lymphocytes/100 WBC (Bld) 25.6 % Normal 20.5-60.0 [facility] Comment on above: Performed By: #### F ETIBC, FERR, B12FOL #### [facility] [address] [place] [address] Dr. Rusty Armstrong MANUAL DIFF REQ NO Normal [facility] Comment on above: Performed By: #### F ETIBC, FERR, B12FOL #### [facility] [address] [place] [address] Dr. Rusty Armstrong MCH (RBC) [Entitic mass] 29.9 pg Normal 26.7-34.0 [facility] Comment on above: Performed By: #### F ETIBC, FERR, B12FOL #### [facility] [address] [place] [address] Dr. Rusty Armstrong MCHC (RBC) [Mass/Vol] 34.6 g/dL Normal 29.9-35.2 [facility] Comment on above: Performed By: #### F ETIBC, FERR, B12FOL #### [facility] [address] [place] [address] Dr. Rusty Armstrong MCV (RBC) [Entitic vol] 86.3 fL Normal 81.0-99.0 [facility] Comment on above: Performed By: #### F ETIBC, FERR, B12FOL #### [facility] [address] [place] [address] Dr. Rusty Armstrong MONO # 0.4 103/ul Normal 0.3-0.8 [facility] Comment on above: Performed By: #### F ETIBC, FERR, B12FOL #### [facility] [address] [place] [address] Dr. Rusty Armstrong Monocytes/100 WBC (Bld) 5.9 % Normal 1.7-12.0 [facility] Comment on above: Performed By: #### F ETIBC, FERR, B12FOL #### [facility] [address] [address] [address] Rusty Armstrong NEUT # 4.6 103/ul Normal 1.4-6.[address] [facility] Comment on above: Performed By: #### F ETIBC, FERR, B12FOL #### [facility] [address] [address] [address] Rusty Armstrong Neutrophils/100 WBC (Bld) 66.3 % Normal 43.0-75.[address] [facility] Comment on above: Performed By: #### F ETIBC, FERR, B12FOL #### [facility] [address] [place] [address] Dr. Rusty Armstrong Platelet mean volume (Bld) [Entitic vol] 8.9 fL Critically low 9.5-13.[address] [facility] Comment on above: Performed By: #### F ETIBC, FERR, B12FOL #### [facility] [address] [place] [address] Dr. Rusty Armstrong PLT 242 103/ul Normal 150-[address] [facility] Comment on above: Performed By: #### F ETIBC, FERR, B12FOL #### [facility] [address] [address] [address] Rusty Armstrong RBC 3.88 106/ul Critically low 4.20-5.40 [facility] Comment on above: Performed By: #### F ETIBC, FERR, B12FOL #### [facility] [address] [address] [address] Rusty Armstrong WBC 7.0 103/ul Normal 4.0-11.[address] [facility] Comment on above: Performed By: #### F ETIBC, FERR, B12FOL #### [facility] [address] [place] [address] Dr. Rusty Armstrong DIRECT LDLon 06-11-2022 Cholesterol in LDL [Mass/Vol] 111 mg/dL Normal [facility] Comment on above: Performed By: #### F ETIBC, FERR, B12FOL #### [facility] [address] [place] [address] Dr. Rusty Armstrong DLDL NORMAL SEE BELOW Normal [facility] Comment on above: Result Comment: <100 mg/dl OPTIMAL 100 - 129 mg/dl NEAR OR ABOVE OPTIMAL 130 - 159 mg/dl BORDERLINE HIGH 160 - 189 mg/dl HIGH >190 mg/dl VERY HIGH Performed By: #### F ETIBC, FERR, B12FOL #### [facility] [address] [address] [address] Rusty Armstrong LIPID PROFILEon 06-11-2022 CHOL-HDL RATIO NORM SEE BELOW Normal [facility] Comment on above: Result Comment: 3.3 - 4.4 LOW RISK 4.4 - 7.1 AVERAGE RISK 7.1 - 11.0 MODERATE RISK >11.0 HIGH RISK Performed By: #### A LT, LIPID, TSH, BMP, DLDL #### [facility] [address] [address] [address] Rusty Armstrong Cholesterol [Mass/Vol] 215 mg/dL Critically high <=[address] [facility] Comment on above: Performed By: #### A LT, LIPID, TSH, BMP, DLDL #### [facility] [address] [address] [address] Rusty Armstrong Cholesterol in HDL [Mass/Vol] 38 mg/dL Critically low 40-[address] [facility] Comment on above: Performed By: #### A LT, LIPID, TSH, BMP, DLDL #### [facility] [address] [address] [address] Rusty Armstrong Cholesterol.total/Ch olesterol in HDL [Mass ratio] 5.7 {ratio} Normal [facility] Comment on above: Performed By: #### A LT, LIPID, TSH, BMP, DLDL #### [facility] [address] [address] [address] Rusty Armstrong HDL NORMAL > or = 60 mg/dl - LO W CARDIOVASCULAR RISK <40 mg/dl - HIGH CARDIOVASCULAR RISK Normal [facility] Comment on above: Performed By: #### A LT, LIPID, TSH, BMP, DLDL #### [facility] [address] [address] [address] Rusty Armstrong Triglyceride [Mass/Vol] 401 mg/dL Critically high <=[address] [facility] Comment on above: Performed By: #### A LT, LIPID, TSH, BMP, DLDL #### [facility] [address] [address] [address] Rusty Armstrong VLDL CALC 80.2 mg/dL Normal [facility] Comment on above: Performed By: #### A LT, LIPID, TSH, BMP, DLDL #### [facility] [address] [place] [address] Dr. Rusty Armstrong MICROALBUMIN, RAND URon 11-0 mALB 3.0 mg/L Normal <=30.0 [facility] Comment on above: Performed By: #### F ETIBC, FERR, B12FOL #### [facility] [address] [place] [address] Dr. Rusty Armstrong PROF CHEM 8 (BAS METB)on Anion gap [Moles/Vol] 9.6 mmol/L Normal [facility] Comment on above: Performed By: #### F ETIBC, FERR, B12FOL #### [facility] [address] [place] [address] Dr. Rusty Armstrong Calcium [Mass/Vol] 9.2 mg/dL Normal 8.5-10.1 [facility] Comment on above: Performed By: #### F ETIBC, FERR, B12FOL #### [facility] [address] [place] [address] Dr. Rusty Armstrong Chloride [Moles/Vol] 103 mmol/L Normal 98-107 [facility] Comment on above: Performed By: #### F ETIBC, FERR, B12FOL #### [facility] [address] [place] [address] Dr. Rusty Armstrong CO2 [Moles/Vol] 27.8 mmol/L Normal 21.0-32.0 [facility] Comment on above: Performed By: #### F ETIBC, FERR, B12FOL #### [facility] [address] [place] [address] Dr. Rusty Armstrong Creatinine [Mass/Vol] 0.83 mg/dL Normal 0.55-1.[address] [facility] Comment on above: Performed By: #### F ETIBC, FERR, B12FOL #### [facility] [address] [address] [address] Rusty Armstrong EGFR-AF MAURITANIAN >60 Normal >=60 [facility] Comment on above: Performed By: #### F ETIBC, FERR, B12FOL #### [facility] [address] [place] [address] Dr. Rusty Armstrong EGFR-NON AF MAURITANIAN >60 Normal >=[address] [facility] Comment on above: Performed By: #### F ETIBC, FERR, B12FOL #### [facility] [address] [place] [address] Dr. Rusty Armstrong Glucose [Mass/Vol] 221 mg/dL Critically high 74-106 [facility] Comment on above: Performed By: #### F ETIBC, FERR, B12FOL #### [facility] [address] [place] [address] Dr. Rusty Armstrong Potassium [Moles/Vol] 4.4 mmol/L Normal 3.5-5.[address] [facility] Comment on above: Performed By: #### F ETIBC, FERR, B12FOL #### [facility] [address] [place] [address] Dr. Rusty Armstrong Sodium [Moles/Vol] 136 mmol/L Normal 136-145 [facility] Comment on above: Performed By: #### F ETIBC, FERR, B12FOL #### [facility] [address] [place] [address] Dr. Rusty Armstrong Urea nitrogen [Mass/Vol] 21.0 mg/dL Critically high 7.0-18.[address] [facility] Comment on above: Performed By: #### F ETIBC, FERR, B12FOL #### [facility] [address] [place] [address] Dr. Rusty Armstrong Urea nitrogen/Creatinine [Mass ratio] 25.3 mg/mg Normal [facility] Comment on above: Performed By: #### F ETIBC, FERR, B12FOL #### [facility] [address] [place] [address] Dr. Rusty Armstrong SGPTon 06-11-2022 ALT [Catalytic activity/Vol] 18 U/L Normal 14-[address] [facility] Comment on above: Performed By: #### F ETIBC, FERR, B12FOL #### [facility] [address] [address] [address] Rusty Armstrong TSHon 06-11-2022 TSH 0.043 uIU/mL Critically low 0.358-3.740 [facility] Comment on above: Performed By: #### F ETIBC, FERR, B12FOL #### [facility] [address] [address] [address] Rusty Armstrong GLYCOHEMOGLOBIN A1Con 2021 ADA RECOMMENDATION SEE BELOW Normal [facility] Comment on above: Result Comment: ADA RECOMMENDED LIMIT 4.0 - 6.0 ADA THERAPEUTIC TARGET < 7.0 ACTION SUGGESTED > 7.0 Performed By: #### F ETIBC, FERR, B12FOL #### [facility] [address] [address] [address] Rusty Armstrong Glucose [Mass/Vol] 157 mg/dL Normal [facility] Comment on above: Performed By: #### F ETIBC, FERR, B12FOL #### [facility] [address] [address] [address] Rusty Armstrong HbA1c (Bld) [Mass fraction] 7.1 % Critically high 4.5-6.[address] [facility] Comment on above: Performed By: #### F ETIBC, FERR, B12FOL #### [facility] [address] [address] [address] Rusty Armstrong Vital Signs Date Time Vital Sign Value Performing Clinician Facility 07-19-2023 14:45-0500 Body height 162.56 cm Loco Denis Other [facility] Other 07-19-2023 14:45-0500 Body mass index (BMI) [Ratio] 32.34 kg/m2 Loco Denis Other [facility] Other 07-19-2023 14:45-0500 Body weight 85.46 kg Loco Ball Other [facility] Other 07-19-2023 14:45-0500 Diastolic blood pressure 67 mm[Hg] Loco Ball Other [facility] Other 07-19-2023 14:45-0500 Respiratory rate 16 /min Loco Ball Other [facility] Other 07-19-2023 14:45-0500 SaO2% (BldA) [Mass fraction] 96 % Loco Ball Other [facility] Other 07-19-2023 14:45-0500 Systolic blood pressure 121 mm[Hg] Loco Ball Other [facility] Other 06-17-2023 14:30-0500 Body height 162.56 cm Loco Ball Other [facility] Other 06-17-2023 14:30-0500 Body mass index (BMI) [Ratio] 32.58 kg/m2 Loco Ball Other [facility] Other 06-17-2023 14:30-0500 Body weight 86.09 kg Loco Ball Other [facility] Other 06-17-2023 14:30-0500 Diastolic blood pressure 75 mm[Hg] Loco Ball Other [facility] Other 06-17-2023 14:30-0500 Respiratory rate 12 /min Loco Ball Other [facility] Other 06-17-2023 14:30-0500 Systolic blood pressure 119 mm[Hg] Loco Ball Other [facility] Other 03-21-2023 11:15-0400 Body height 162.56 cm Loco Ball Other [facility] Other 03-21-2023 11:15-0400 Body mass index (BMI) [Ratio] 31.68 kg/m2 Loco Ball Other [facility] Other 03-21-2023 11:15-0400 Body weight 83.73 kg Loco Ball Other [facility] Other 03-21-2023 11:15-0400 Diastolic blood pressure 70 mm[Hg] Loco Ball Other [facility] Other 03-21-2023 11:15-0400 Respiratory rate 12 /min Loco Ball Other [facility] Other 03-21-2023 11:15-0400 Systolic blood pressure 112 mm[Hg] Loco Ball Other [facility] Other Encounters Encounter Date Encounter Type Care Provider Facility Start: 09-02-2023 End: 09-02-2023 ambulatory Loco Ball Other [facility] Other Start: 09-02-2023 Telephone encounter Loco Ball [facility] Start: 08-21-2023 End: 08-21-2023 ambulatory Loco Ball Other [facility] Other Start: 08-21-2023 Telephone encounter Loco Ball [facility] Start: 08-07-2023 End: 08-07-2023 ambulatory Loco Ball Other [facility] Other Start: 08-07-2023 Telephone encounter Loco Ball [facility] Start: 07-24-2023 End: 07-24-2023 ambulatory Loco Ball Other [facility] Other Start: 07-24-2023 Telephone encounter Loco Ball [facility] Start: 07-23-2023 End: 07-23-2023 ambulatory Loco Ball Other [facility] Other Start: 07-23-2023 Telephone encounter Loco Ball [facility] Start: 07-19-2023 End: 07-19-2023 ambulatory Loco Ball Other [facility] Other Start: 07-19-2023 Office outpatient vi sit 15 minutes Loco Ball [facility] Start: 07-19-2023 Telephone encounter Loco Ball [facility] Start: 07-17-2023 End: 07-17-2023 ambulatory Loco Ball Other [facility] Other Start: 07-17-2023 Telephone encounter Loco Ball [facility] Start: 07-02-2023 End: 07-02-2023 ambulatory Loco Ball Other [facility] Other Start: 07-02-2023 Telephone encounter Loco Ball [facility] Start: 07-01-2023 End: 07-01-2023 ambulatory Loco Ball Other [facility] Other Start: 07-01-2023 Telephone encounter Loco Ball [facility] Start: 06-24-2023 End: 06-24-2023 ambulatory Loco Ball Other [facility] Other Start: 06-24-2023 Telephone encounter Loco Ball [facility] Start: 06-18-2023 End: 06-18-2023 ambulatory Loco Ball Other [facility] Other Start: 06-18-2023 Telephone encounter Loco Ball [facility] Start: 06-17-2023 End: 06-17-2023 ambulatory Loco Ball Other [facility] Other Start: 06-17-2023 Patient encounter procedure Loco Denis [facility] Start: 06-12-2023 End: 06-12-2023 ambulatory Loco Denis Other [facility] Other Start: 06-12-2023 Telephone encounter Loco Denis [facility] Start: 03-21-2023 End: 03-21-2023 ambulatory Loco Denis Other [facility] Other Start: 03-21-2023 Office outpatient vi sit 15 minutes Loco Denis [facility] Start: 03-06-2023 End: 03-06-2023 ambulatory Loco Denis Other [facility] Other Start: 03-06-2023 Telephone encounter Loco Denis [facility] Start: 12-26-2022 End: 12-27-2022 ambulatory Raheem SANTANA Facility:[id number] Start: 12-05-2022 End: 12-06-2022 ambulatory Raheem FROSTL Facility: [place] Start: 11-28-2022 ambulatory Devon DEGROOT Facility : [facility] Start: 11-23-2022 ambulatory Raheem R SANTOSHL Facility : [place] Start: 11-22-2022 End: 11-22-2022 ambulatory Loco Denis Other [facility] Other Start: 11-22-2022 Telephone encounter Loco Denis [facility] Start: 11-21-2022 Telephone encounter Loco Adeel [facility] Start: 11-21-2022 End: 11-22-[address] [facility]O DENIS [facility] [facility] Other Start: 11-20-2022 End: 11-21-[address] LOCO DENIS Facility: Start: 10-22-2022 End: 10-22-2022 ambulatory Loco Denis Other [facility] Other Start: 10-22-2022 Office outpatient vi sit 15 minutes Loco Ball [facility] Start: 08-31-2022 End: 09-01-[address] LOCO DENIS Facility:[facility]1 Start: 06-25-2022 End: 06-26-[address] LOCO DENIS Facility:[facility] Start: 06-11-2022 End: 06-12-[address] LOCO DENIS Facility:[facility] Start: 04-20-2022 End: 04-21-[address] LOCO DENIS Facility:[facility] Start: 01-22-2022 ambulatory Devon Santana MIKAYLA Carter ty:[facility] [place] Immunizations Immunization Date Immunization Notes Care Provider Fa kayla 04-11-2023 influenza, high dose seasonal, preservative-free Loco Denis Other [facility] Other 06-11-2022 influenza virus vaccine, split virus (incl. purified surface antigen) Loco Denis Other [facility] Other 05-03-2021 influenza virus vaccine, split virus (incl. purified surface antigen) Loco Denis Other [facility] Other 09-28-2020 COVID-19 Vaccine Moderna - Documentation Purposes Only Loco Denis Other [facility] Other 06-06-2020 influenza virus vaccine, split virus (incl. purified surface antigen) Loco Denis Other [facility] Other 06-05-2019 influenza virus vaccine, split virus (incl. purified surface antigen) Loco Denis Other [facility] Other 06-04-2018 influenza virus vaccine, split virus (incl. purified surface antigen) Loco Denis Other [facility] Other 06-04-2018 pneumococcal polysaccharide vaccine, 23 valent Loco Denis Other [facility] Other 04-23-2017 influenza virus vaccine, split virus (incl. purified surface antigen) Loco Denis Other [facility] Other 11-20-2016 pneumococcal conjuga te vaccine, 13 valent Loco Denis Other [facility] Other 10-22-2011 diphtheria, tetanus toxoids and acellular pertussis vaccine, unspecified formulation Loco Denis Other [facility] Other Payers Date Payer Category Payer Private Health Insurance [id number] 1958 Medicare [id number] 2.1 [id number] 1958 Private Health Insurance CLI [id number] 1950 Unknown [id number] 2.16.8 [id number] 1950 Unknown [id number] 2.16.8 [id number] 1950 Unknown [id number] 2.16.8 [id number] 1951 Unknown [id number] 2.16.8 [id number] 1951 Unknown [id number] 2.16.84 [id number] 1950 Unknown [id number] 2.16.84 [id number] 1950 Unknown [id number] 2.16.84 [id number] 1950 Unknown [id number] 2.16.84 [id number] 1950 Unknown [id number] 2.16.84 [id number] 1950 Unknown [id number] 2.16.84 [id number] 1950 Unknown [id number] 2.16.84 [id number] Social History Date Type Detail Facility Sex Assigned At [facility] Other Medical Equipment Procedure Code Equipment Code Equipment Original Text Equi pment Identifier Dates One[facility] Ultra[employer] Lancets - Clinical Notes 10-22-2022 to 08-21-2023 Note Date & Type Note Facility 08-21-2023 Evaluation note Encounter Date Diagnosis Assessment Notes Aug, Primary hypertension (ICD-10 - I10) [facility] Other 01-03-2024 Evaluation note* Encounter Date Diagnosis Assessment Notes Treatment Notes Treatment Clinical Notes Aug, Primary hypertension (ICD-10 - I10) [facility] Other 12-20-2023 Evaluation note* Encounter Date Diagnosis Assessment Notes Treatment Notes Treatment Clinical Notes Jul, Acute bronchitis due to other specified organisms (ICD-10 - J20.8) [facility] Other 12-15-2023 Evaluation note* Encounter Date Diagnosis Assessment Notes Treatment Notes Treatment Clinical Notes Jul, Acute bronchitis due to other specified organisms (ICD-10 - J20.8) Instructed to use Robitussin or Mucinex for cough, saline or Flonase NS for congestion, Tylenol for pain and fever. Jul, Primary hypertension (ICD-10 - I10) This patient is instructed to consume a healthy, low-fat, low-salt diet. They are also encouraged to continue exercise to achieve/maintain a normal BMI. Jul, Type 2 diabetes mellitus with hyperglycemia, without long-term current use of insulin (ICD-10 - E11.65) This patient is following a comprehensive diabetic treatment plan. They are checking their feet daily for calluses and nonhealing ulcers. They are being seen for yearly dilated eye examinations. Goals: SBP less than 130, LDL less than 100, FBS less than 140, A1C less than 7%. They are checking their BS daily, will which are reviewed at the office visit. Continue regular routine monitoring of A1C,] Microalbumin, Dilated eye exam and Foot exam BS may increase while experiencing respiratory illness [facility] Other 11-28-2023 Evaluation note* Encounter Date Diagnosis Assessment Notes Treatment Notes Treatment Clinical Notes Jun, Abnormal mammogram of left breast (ICD-10 - R92.8) [facility] Other 11-27-2023 Evaluation note* Encounter Date Diagnosis Assessment Notes Treatment Notes Treatment Clinical Notes Jun, Autoimmune thyroiditis (ICD-10 - E06.3) Yearly TSH [facility] Other 11-20-2023 Evaluation note* Encounter Date Diagnosis Assessment Notes Treatment Notes Treatment Clinical Notes Jun, Primary hypertension (ICD-10 - I10) [facility] Other 11-13-2023 Evaluation note* Encounter Date Diagnosis Assessment Notes Treatment Notes Treatment Clinical Notes Jun, Medicare annual wellness visit, subsequent (ICD-10 - Z00.00) Personalized health advice was given to the beneficiary including a written plan for screenings discussed and provided. Advanced care planning reviewed and/or information given as requested. Additional counseling was provided here today in regards to, [ ]. The above visit was performed by [ ], under direct supervision of [ ]. Document reviewed and amended by provider signed below. Jun, Type 2 diabetes mellitus with hyperglycemia, without long-term current use of insulin (ICD-10 - E11.65) This patient is following a comprehensive diabetic treatment plan. They are checking their feet daily for calluses and nonhealing ulcers. They are being seen for yearly dilated eye examinations. Goals: SBP less than 130, LDL less than 100, FBS less than 140, A1C less than 7%. They are checking their BS daily, will which are reviewed at the office visit. Continue regular routine monitoring of A1C,] Microalbumin, Dilated eye exam and Foot exam Jun, Hyperlipidemia type II (ICD-10 - E78.01) Instructed on diet and exercise with continued statin therapy.Discussed the beneficial effects of lowering cholesterol in reducing the risk for cerebrovascular and cardiovascular disease. Jun, Primary hypertension (ICD-10 - I10) This patient is instructed to consume a healthy, low-fat, low-salt diet. They are also encouraged to continue exercise to achieve/maintain a normal BMI. Jun, Autoimmune thyroiditis (ICD-10 - E06.3) Yearly TSH Clinically euthyroid, yearly TSH Jun, Other specified hypothyroidism (ICD-10 - E03.8) Jun, Other obesity due to excess calories (ICD-10 - E66.09) This patient has been instructed on a low-fat, high-fiber diet. They are instructed to reduce calories, portion sizes and snacks. It is recommended that they exercise for 30 minutes, 3-5 times weekly. Jun, Body mass index [BMI] 32.0-32.9, adult (ICD-10 - Z68.32) Jun, Screening mammogram for breast cancer (ICD-10 - Z12.31) Instructed patient on monthly SBE and yearly mammograms. Jun, High risk medication use (ICD-10 - Z79.899) [facility] Other 11-08-2023 Evaluation note* Encounter Date Diagnosis Assessment Notes Treatment Notes Treatment Clinical Notes Jun, Primary hypertension (ICD-10 - I10) [facility] Other 08-17-2023 Evaluation note* Encounter Date Diagnosis Assessment Notes Treatment Notes Treatment Clinical Notes Mar, Acute left-sided low back pain without sciatica (ICD-10 - M54.50) The patient is instructed to avoid bending, twisting or lifting. They are to use intermittent heat and ice as needed. They may schedule a massage or gentle manipulation. They may safely use Tylenol as needed. Continue Tylenol, Lidocaine patch Handouts for back exercises/stretches given to patient Mar, Lumbar spondylitis (ICD-10 - M46.96) Heat/ice and Tylenol Daily stretching exercises Weight loss Mar, Type 2 diabetes mellitus with hyperglycemia, without long-term current use of insulin (ICD-10 - E11.65) This patient is following a comprehensive diabetic treatment plan. They are checking their feet daily for calluses and nonhealing ulcers. They are being seen for yearly dilated eye examinations. Goals: SBP less than 130, LDL less than 100, FBS less than 140, AC and A1C less than 7%. They are checking their BS daily, will which are reviewed at the office visit. Continue regular routine monitoring of A1C,] Microalbumin, Dilated eye exam and Foot exam No change in medication at this time. Actos recently added Average BS 200 Reduce calores/sweets and increase activity [facility] Other 08-02-2023 Evaluation note* Encounter Date Diagnosis Assessment Notes Treatment Notes Treatment Clinical Notes Mar, Type 2 diabetes mellitus with hyperglycemia, without long-term current use of insulin (ICD-10 - E11.65) [facility] Other 05-24-2023 NoteOPERATIVE NOTE OPERATION DATE: 12/26/2022 PREOPERATIVE DIAGNOSIS: Anemia. POSTOPERATIVE DIAGNOSIS: Small hiatal hernia, normal colonoscopy to cecum. PROCEDURE: EGD and colonoscopy to cecum. SURGEON: Raheem Santana M.D. ANESTHESIA: Monitored anesthesia care. ESTIMATED BLOOD LOSS: Zero. INDICATIONS AND CONSENT: Patient is a 72-year-old female with history of anemia. Indications, risks, benefits, alternatives of proceeding with EGD and colonoscopy were explained extensively to the patient, including the risks of bleeding, aspiration, esophagogastric/gastric/colonic perforation or anesthetic complications. Last colonoscopy was in 2011. All of her questions were answered. Informed consent was obtained. PROCEDURE: Patient brought to the operating room, placed in the left lateral decubitus position. Monitored anesthesia care was provided. Bite block was placed in the patient's mouth. Scope was entered into the oropharynx. Under direct visualization, it was advanced into the esophagus, past the cricopharyngeus, down to the stomach. The stomach was insufflated with air. The pylorus was traversed down to the descending portion of the duodenum. There was no evidence of duodenitis or ulceration. There was no scarring within the pyloric channel. Scope was pulled back into the stomach and retroflexed. There was noted to be a small, sliding type hiatal hernia. No gastric mucosal abnormalities. The GE junction was noted at approximately 39 cm. There was no distal esophagitis or Flores's changes. Remainder of the esophagus was unremarkable. The scope was then withdrawn. Patient was then positioned for colonoscopy. Rectal exam was performed, which showed no masses or blood. The scope was then inserted into the anal canal. Under direct visualization, it was advanced. With the aid of abdominal compression, it was advanced to the cecum where cecal markings were clearly identified. There was noted to be a good prep. Upon withdrawal of the scope, mucosal surfaces were carefully examined. There were no mass lesions or polyps. No inflammatory changes or ulcerations. No significant diverticulosis. The scope was retroflexed in the anal canal. There was no significant hemorrhoidal disease. The scope was then withdrawn. The patient tolerated procedure well, was sent to recovery room in good condition. CC: Loco Denis D.O.[facility]05-03-2023 NoteChief Complaint consultation for anemia HPI Staff 72 year old female presents on consultation from Dr. Denis for anemia. HGB 11.5, HCT 33.2 with normal iron, ferritin and TIBC. Denies dizziness, lightheadedness, fatigue or SOB. Denies abdominal or rectal pain. No rectal bleeding or change in bowel habits. Denies nausea or vomiting. No unexplained weight loss. Last colonoscopy completed 02/2012 with diverticulosis. History of Present Illness 72 yo female with h/o htn, DMII, hypercholesterolemia, hypothyroidism, depression, lumbosacral spondylosis; referred for anemia, recent hb 11.5; denies change in bms or blood in stools, no abd complaints; denieas h/o ulcer disease or GERD; abd operations significant for x 3; last colonoscopy 2011 with sigmoid diverticulosis; on baby asa daily, no NSAIDs; no SBE prophylaxis; no fmhx of GI malignancy or IBD; no tobacco use. Review of Systems PHQ Score Initial Depression Screen Score: 0 ROS - Provider Constitutional: no fever, no sweats, no weight loss. Eyes: yes glasses, no blurred vision, no visual loss. ENMT: no dentures, no hoarseness, no swallowing difficulties, no hearing loss, no ear infection(s),no nose bleeds. Cardiovascular: normal blood pressure, no chest pain, regular heartbeat, no heart murmur. Respiratory: no shortness of breath, no cough, no asthma, no wheezing. Gastrointestinal: no nausea, no vomiting, no diarrhea, no constipation, no blood in stool, no change in bowel habits, no abdominal pain, no hepatitis. Genitourinary: no kidney stones, no urine infection, no dysuria. Musculoskeletal: no pain, no weakness. Skin: no changing moles, no rash, no skin lumps. Neurologic: no seizures, no epilepsy, no headache. Psychiatric: no emotional or psychiatric problem. Heme/Lymph: no bleeding problems, no anemia, no blood clots, no transfusions. Allergy/Immunologic: no swollen lymph nodes/glands, no IV drug abuse. Other: Additional ROS info: Except as noted in the above Review of Systems and in the History of Present Illness, all other systems have been reviewed and are negative or noncontributory. Physical Exam Vitals & Measurements HR: 70(Peripheral) RR: 16 BP: 132/82 HT: 64 in HT: 162.5 cm WT: 81.8 kg WT: 179.96 lb BMI: 30.98 HEENT: normal conjunctiva, sclera clear, no scleral icterus, EOM intact, PERRLA, oral mucosa moist without lesions. Neck: trachea midline, no mass, symmetric, no thyromegaly or nodules, no adenopathy Respiratory: lungs CTA, respirations non labored. Cardiovascular: regular rate and rhythm, no murmur, no pedal edema or varicosities. Gastrointestinal:obese, soft, non distended, no tenderness, no masses, no palpable hernias, diastasis recti no, no hepatosplenomegaly; normal bs Lymphatic: no cervical adenopathy, no supraclavicular adenopathy Musculoskeletal: normal gait, digits and nails without infection, nodes, cyanosis, clubbing. Skin: no rashes, no lesions, no ulcers, no subcutaneous nodules, induration. Psychiatric/Neuro: oriented to time, place, person, judgement normal, affect appropriate for age, insight intact, no focal deficits. Tests: labs reviewed, review of old records completed, Discussed surgical options, risks, and possible complications with patient. Assessment/Plan 1. Anemia (D64.9: Anemia, unspecified) plan EGD and colonoscopy under anesthesia, informed consent obtained. Follow-up No qualifying data available Problem List/Past Medical History Ongoing Anemia Autoimmune hypothyroidism BMI 30.0-30.9,adult Essential hypertension History of nephrolithiasis Lumbosacral spondylosis with radiculopathy Pure hypercholesterolemia Recurrent major depression Right carotid artery stenosis BRII (stress urinary incontinence, female) Type 2 diabetes mellitus Historical No qualifying data Procedure/Surgical History ESWL of kidney (02/04/2020), Colonoscopy (02/13/2012), Cystoscopy (12/07/2011), ESWL of kidney (06/08/2010), section, section, section, Cystoscopy. Medications aspirin 81 mg Oral EC Tab, 81 mg= 1 tab(s), Oral, Daily atorvastatin, 40 mg, Oral, Daily carvedilol 12.5 mg Tab, 12.5 mg= 1 tab(s), Oral, BID chlorthalidone 25 mg Tab, 12.5 mg= 0.5 tab(s), Oral, Daily Effer-K 25 mEq oral tablet, effervescent, 25 mEq= 1 tab(s), Oral, BID, 11 refills glipiZIDE 10 mg ER Tab, 10 mg= 1 tab(s), Oral, Daily levothyroxine, 125 mcg, Oral, Daily lisinopril, 40 mg, Oral, Daily metformin, 1000 mg, Oral, BID Allergies Alfenta (Mild) Versed (Mild) penicillins (Moderate) sulfa drugs (Moderate) Social History Alcohol - Denies Alcohol Use, 12/05/2022 Substance Abuse - Denies Substance Abuse, 12/05/2022 Tobacco Never (less than 100 in lifetime) Tobacco Use:. Never Smokeless Tobacco Use:., 12/05/2022 Family History Kidney stones: Mother and Father. Immunizations Vaccine Date Status Comments influenza virus vaccine, inactivated 06/11/2022 Recorded SARS-CoV-2 (more content not included)...[facility]Result Comment: Electronically Signed By: BERNARD ZUNIGA, Raheem Stein\Date and Time Signed: 12/05/22 14:23 [id number] Evaluation note* Encounter Date Diagnosis Assessment Notes Treatment Notes Treatment Clinical Notes Nov, Autoimmune hypothyroidism (ICD-10 - E06.3) [facility] Other 04-19-2023 Evaluation note* Encounter Date Diagnosis Assessment Notes Treatment Notes Treatment Clinical Notes Nov, Type 2 diabetes mellitus with hyperglycemia, without long-term current use of insulin (ICD-10 - E11.65) Nov, Autoimmune hypothyroidism (ICD-10 - E06.3) [facility] Other 04-18-2023 NotePROCEDURE: XR HIP RT 2 3V W PELVIS HISTORY: Pain in right hip joint COMPARISON: None. FINDINGS: BONES:No fracture, acute abnormality, or significant arthropathy. SOFT TISSUES:No visible soft tissue swelling. EFFUSION:None visible. OTHER: Negative. IMPRESSION: 1. No acute bone abnormality or bone lesion. 2. Minimal degenerative joint disease. Electronically authenticated by: SOTO SCHREIBER Date: 2022-11-20 15:27[facility]03-20-2023 Evaluation note* Encounter Date Diagnosis Assessment Notes Treatment Notes Treatment Clinical Notes Oct, Acute bronchitis due to other specified organisms (ICD-10 - J20.8) Instructed to use Robitussin or Mucinex for cough, saline or Flonase NS for congestion, Tylenol for pain and fever. ER for chest pain or increased SOB Oct, Type 2 diabetes mellitus with hyperglycemia, without long-term current use of insulin (ICD-10 - E11.65) Healthy diet and continue monitoring practices. BS may increase acutely w/ infections, which requires no treatment. Push fluids and rest [facility] Other Evaluation noteNo InformationNort YellowSchedule Other History general Narrative - Reported* Type Description Date Medical History Carotid stenosis, right Medical History Major depression, recurrent Medical History High risk medication use Medical History Mildly obese Medical History Hyperlipidemia type II Medical History Acquired autoimmune hypothyroidi sm Medical History Essential hypertension Medical History Controlled type 2 di abetes mellitus with hyperglycemia, without long-term current use of insulin Medical History Chronic vasomotor rhinitis Medical History History of nephrolithiasis Medical History Lumbosacral spondylosis with rad iculopathy Surgical History ESWL, Kidney, Right 02/04/2020 Surgical History 10/20/2013 Surgical History Colonoscopy 2011 Hospitalization History see surgical history [facility] Other Hissrxu general Narrative - Reported* Type Description Date Medical History Carotid stenosis, right Medical History Major depression, recurrent Medical History High risk medication use Medical History Mildly obese Medical History Hyperlipidemia type II Medical History Acquired autoimmune hypothyroidi sm Medical History Essential hypertension Medical History Controlled type 2 di abetes mellitus with hyperglycemia, without long-term current use of insulin Medical History Chronic vasomotor rhinitis Medical History History of nephrolithiasis Medical History Lumbosacral spondylosis with rad iculopathy Surgical History ESWL, Kidney, Right 02/04/2020 Surgical History 10/20/2013 Surgical History Colonoscopy 2011 Surgical History EGD 12/2022 Surgical History Colonoscopy 12/2022 Hospitalization History see surgical history [facility] Other History general Narrative - Reported* Type Description Date Medical History Carotid stenosis, right Medical History Major depression, recurrent Medical History High risk medication use Medical History Mildly obese Medical History Hyperlipidemia type II Medical History Acquired autoimmune hypothyroidi sm Medical History Essential hypertension Medical History Controlled type 2 di abetes mellitus with hyperglycemia, without long-term current use of insulin Medical History Chronic vasomotor rhinitis Medical History History of nephrolithiasis Medical History Lumbosacral spondylosis with rad iculopathy Surgical History ESWL, Kidney, Right 02/04/2020 Surgical History 10/20/2013 Surgical History Colonoscopy 2011 Surgical History EGD 12/2022 Surgical History Colonoscopy 12/2022 Surgical History FNA left breast 07/2023 Hospitalization History see surgical history [facility] Other Reason for referral (narrative)* Reason Referral for EGD and Colonoscopy Diagnosis 1 Anemia, unspecified type (D64.9) Diagnosis 2 Colon cancer screeni (Z12.11) [facility] First Name Loco Referring Provider Last Name Adeel Referring Provider Specialty Internal Ia dicine Referred Organization [facility] Referred Provider Raheem Santana Referred Address [address] [place] [id number] Referred Provider Specialty Surgery Referral Priority Routine General Notes Hilda Cool complete d her annual wellness examination and was found to have a normocytic, normochromic anemia. She denies abdominal pain, N/V, heartburn, dysphagia, melena or hematochezia. Her Fe, B12 and folic acid levels were normal. She is not taking any anticoagulants. Her previous colonoscopy was in 2011 and was normal. She is due for a screening colonoscopy and due to her anemia, I have recommended an EGD to r/o esophagitis, gastritis and PUD. Hilda has a negative personal and family hx for colon polyps or cancer. Clinical Notes Include most recent BMP, CBC, B12, FA, iron, TIBC and ferritin. [facility] Other Summary Purpose Family History No Family History Records FoundNo Family History Records Found Advance Directives No Advanced Directives Records FoundNo Advanced Directives Records Found Additional Source Comments REASON FOR VISIT (unrecogniz ed section and content) [phone] cold and wheezi ngXray resultsNo InformationLab ResultsLab Resultsback painrefillWELLNESSCologuardRefillNo InformationNo Informationmedication questionWELLNESSWants XraywheezingNo InformationFNA resultsATBrefillMedication ChangeRefills INFORMATION SOURCE (unrecogn ized section and content) DATE CREATED AUTHOR 01/11/2023 Avelar Reagan [facility] DATE CREATED AUTHOR AUTHOR'S ORGANIZ ATION 01/11/2023 [facility] FOR RECORDS PERTAINING TO PATIENTS WHO ARE OR HAVE BEEN ENROLLED IN A CHEMICAL DEPENDENCY/SUBSTANCEABUSE PROGRAM, SOME INFORMATION MAY BE OMITTED. This clinical summary was aggregated from multiple sources. Caution should be exercised in using it in the provision of clinical care. This summary normalizes information from multiple sources, and as a consequence, information in this document may materially change the coding, format and clinical context of patient data. In addition, data may be omitted in some cases. CLINICAL DECISIONS SHOULD BE BASED ON THE PRIMARY CLINICAL RECORDS. [facility] [employer] provides no warranty or guarantee of the accuracy or completeness of information in this document.
[2023-10-18 14:01] LABS: Estimated Average Glucose 160 mg/dL; Glycohemoglobin A1C 7.2 % (4.5-6.2)
== END 2023-10-18 13:08 | disposition home or self-care (01) ==
LOC: LAB 13:09
PROVIDERS: PCP Internal Medicine; Visit Provider Internal Medicine
DX: E11.65 Type 2 diabetes mellitus with hyperglycemia (principal)
CPT/HCPCS: 36415; 83036

== ENCOUNTER 2024-06-29 08:37 | Outpatient (OUT) | payer MEDICARE, SELFPAY ==
--- OUTSIDE RECORDS SUMMARY | 2024-06-29 08:55 | XMS_ITS | CCD ---
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 Name Role Phone Loco Denis Unavailable Devon [...] Unavailable BALL, DR SALCEDO Primary Care Unavailable CARLISLE, DR SANTINO [employer] Unavailable BALL, DR [...] Unavailable BALL, DR SALCEDO Primary Care Unavailable ZIEBER, DR SOTO [employer] Unavailable BALL, DR SALCEDO Admitting Unavailable BALL, DR SALCEDO Attending Unavailable BALL, DR SALCEDO Consulting Unavailable BALL, DR SALCEDO Primary Care Unavailable Allergies Allergy Classification Reported Allergen(s) Allergy Type Date of Onset Reaction(s) Facility (5 sources) Penicillin; 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: [penicillin] Drug Allergy Unknown [facility] Repository (20 sources) Substance with sulfonamide structure and antibacterial mechanism of action (substance) Drug allergy Unknown [email or web address] Other (2 sources) Alfentanil; 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: [Alfenta] Drug Allergy [facility] Repository (2 sources) Midazolam; 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: [Versed] Drug Allergy [facility] Repository (2 sources) Penicillins; 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: [penicillins] Propensity to adverse reactions (disorder) 06-22-20 24 Unknown Reaction [facility] Repository (1 source) Sulfonamides (Antibiotic); 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: [sulfa drugs] Propensity to adverse reactions (disorder) [facility] Repository (1 source) Sulfonamides (Antibiotic) Drug allergy (disorder) [facility] Repository (18 sources) Substance with penicillin structure and antibacterial mechanism of action (substance) Drug allergy Unknown [email or web address] Other (1 source) Sulfonamides (Antibiotic) Allergy to substance 06-22-20 Unknown Reaction [facility] Medications Current Medications Medication Drug Class(es) Dates Sig (Normalized) Sig (Original) amLODIPine 5 mg oral tablet (20 sources) Dihydropyridine Calcium Channel Donna Start: 11-07-2023 take 1 tablet by mouth once daily Amlodipine 5 mg tablet Active 0 .ROUTE .COMPLEX 90 November 07, 2023 11:09am TAKE 1 TABLET BY MOUTH EVERY DAY Start: 10-15-2023 End: 11-07-2023 take 1 tablet by mouth once daily Amlodipine 5 mg tablet Discontinued 5 MG PO Daily October 14, 2023 11:00pm November 07, 2023 11:09am take 1 tablet by florian th once daily amLODIPine Besylate 5 MG TAKE 1 TABLET BY MOUTH EVERY DAY Active aspirin 81 mg delayed release oral tablet (20 sources) Platelet Aggregation Inhibitor, Nonsteroidal Anti-inflammatory Drug Start: 10-15-2023 take 1 tablet by mouth once daily Aspirin 81 mg tablet,delayed release (DR/EC) Active 81 MG PO Daily October 14, 2023 11:00pm take 1 tablet by mouth once haseeb y Aspirin EC 81 MG 1 tablet Orally Once a day Active atorvastatin 40 mg oral tablet (20 sources) HMG-CoA Reductase Inhibitor Start: 10-15-2023 take 1 tablet by mouth once daily in the evening Atorvastatin 40 mg tablet Active 40 MG PO Every evening October 14, 2023 11:00pm take 1 tablet by florian th once daily in the evening Atorvastatin Calcium 40 MG TAKE 1 TABLET BY MOUTH EVERY DAY IN THE EVENING for 90 Active carvedilol 12.5 mg oral tablet (20 sources) alpha-Adrenergic Donna, beta-Adrenergic Donna Start: 10-15-2023 take 1 tablet by mouth twice daily Carvedilol 12.5 mg tablet Active 12.5 MG PO Twice daily October 14, 2023 11:00pm Carvedilol 12.5 MG TAKE 1 TABLET BY MOUTH TWICE A DAY WITH FOOD FOR 30 DAYS for 90 Active glipiZIDE er 10 mg 24 hr extended release oral tablet (20 sources) Sulfonylurea Start: 05-15-2024 take 2 tablets by mouth once daily Glipizide 10 mg tablet extended release 24hr Active 0 .ROUTE .COMPLEX 180 May 15, 2024 5:56am TAKE 2 TABLETS BY MOUTH EVERY DAY Start: 10-15-2023 End: 05-15-2024 take 1 tablet by mouth once daily Glipizide 10 mg tablet extended release 24hr Discontinued 20 MG PO Daily October 14, 2023 11:00pm May 15, 2024 5:56am glipiZIDE ER 10 MG TAKE 2 TABLETS BY MOUTH EVERY DAY FOR 30 DAYS for 90 Active take 2 tablets by mo uth once daily glipiZIDE ER TAKE 2 TABLETS BY MOUTH EVERY DAY FOR 30 DAYS Active take 1 tablet by florian th every twenty-four hours glipiZIDE ER 10 MG 1 tablet with breakfast Orally Once a day Active hydroCHLOROthiazide 25 mg oral tablet (4 sources) Thiazide Diuretic Start: 10-15-2023 End: 02-04-2024 take 1 tablet by mouth once daily Hydrochlorothiazide 25 mg tablet Active 25 MG PO Daily February 04, 2024 9:22am Start: 08-21-2023 take 1 tablet by florian th every twenty-four hours hydroCHLOROthiazide 25 MG 1 tablet in the morning Orally Once a day for 90 days Aug, Active levothyroxine sodium 0.1 mg oral tablet (20 sources) l-Thyroxine Start: 02-12-2024 take 1 tablet by mouth once daily Levothyroxine 100 mcg tablet Active 0 .ROUTE .COMPLEX 90 February 12, 2024 7:42am TAKE 1 TABLET BY MOUTH ONCE A DAY ON AN EMPTY STOMACH Start: 10-15-2023 End: 02-12-2024 take 1 tablet by mouth once daily Levothyroxine 100 mcg tablet Discontinued 100 MCG PO Daily October 14, 2023 11:00pm February 12, 2024 7:42am take 1 tablet by florian th once daily Levothyroxine Sodium 100 MCG TAKE 1 TABLET BY MOUTH ON AN EMPTY STOMACH ONCE A DAY for 90 Active Levothyroxine So dium 100 MCG TAKE 1 TABLET BY MOUTH ONCE A DAY ON AN EMPTY STOMACH Orally Once a day for 30 days Active take 1 tablet by florian th once daily Levothyroxine Sodium 112 MCG TAKE 1 TABLET BY MOUTH ONCE A DAY ON AN EMPTY STOMACH Active take 1 tablet by florian th once daily Levothyroxine Sodium 137 MCG 1 tablet Orally Once a day, on an empty stomach for 30 days Active take 1 tablet by florian th once daily in the morning Levothyroxine Sodium 125 MCG 1 tablet in the morning on an empty stomach Orally Once a day Active lisinopril 40 mg oral tablet (20 sources) Angiotensin Converting Enzyme Inhibitor Start: 10-15-2023 take 1 tablet by mouth once daily Lisinopril 40 mg tablet Active 40 MG PO Daily October 14, 2023 11:00pm Lisinopril 40 MG TAKE 1 TABLET BY MOUTH EVERY DAY Orally Once a day for 30 days Active metFORMIN hydrochloride 1000 mg oral tablet (20 sources) Biguanide Start: 10-15-2023 take 1 tablet by mouth once daily Metformin 1,000 mg tablet Active 1000 MG PO Daily October 14, 2023 11:00pm metFORMIN HCl 10 00 MG 1 Orally [...] days Active pioglitazone 15 mg oral tablet (20 sources) Peroxisome Proliferator Receptor alpha Agonist, Peroxisome Proliferator Receptor gamma Agonist, Thiazolidinedione Start: 09-25-2023 End: 06-18-2024 take 1 tablet by mouth once daily Pioglitazone 15 mg tablet Active 0 .ROUTE .COMPLEX 90 June 18, 2024 6:50am TAKE 1 TABLET BY MOUTH EVERY DAY Start: 09-25-2023 End: 09-25-2023 take 1 tablet by mouth once daily Pioglitazone 15 mg tablet Discontinued 15 MG PO Daily September 25, 2023 12:00am September 25, 2023 8:28am Start: 03-07-2023 take 1 tablet by florian th every twenty-four hours Pioglitazone HCl 15 MG 1 tablet Orally Once a day Mar, Active Completed/Discontinued Medications Medication Drug Class(es) Dates Sig (Normalized) Sig (Original) azithromycin 500 mg oral tablet (13 sources) Macrolide Antimicrobial Start: 11-06-2023 End: 06-22-2024 Azithromycin 500 mg tablet Discontinued 500 MG PO As Directed 08 05November 05, 2023 11:00pm June 22, 2024 11:26am Take 30 minutes prior to dental appt. Start: 07-19-2023 Azithromycin 2 50 MG as directed Orally daily for 5 days Jul, Active Azithromycin 250 MG as directed Orally daily for 5 days Active chlorthalidone 25 mg oral tablet (20 sources) Thiazide-like Diuretic Start: 10-15-2023 End: 02-04-2024 take 1 tablet by mouth once daily Chlorthalidone 25 mg tablet Discontinued 25 MG PO Daily October 14, 2023 11:00pm February 04, 2024 9:30am Start: 09-27-2022 Chlorthalidone 25 MG 1 Orally qod for 30 days Sep, Active Start: 09-27-2022 take 0.5 tablet by m outh once daily Chlorthalidone 25 MG 1/2 tablet Orally Once a day Sep, Active Problems Active Problems Problem Classification Problem [...] depression; 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: [Major depressive disorder, recurrent, unspecified] 06-20-2024 Chronic Occlusion or stenosis of precerebral arteries (20 sources) Right carotid artery stenosis; 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: [Occlusion and stenosis of right carotid artery] 10-15-2023 Chronic Osteoarthritis (20 sources) Idiopathic osteoarthritis; 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, right knee] Onset: 01-26-2014 10-15-2023 Chronic Other aftercare (4 sources) H/O: high risk medication; 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: [Other assisted (current) drug therapy] Episodic Other aftercare (1 source) custodial (current) use of aspirin; 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] Onset: 01-01-2023 Episodic Other aftercare (1 source) custodial (current) use of oral hypoglycemic drugs; 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: [JAIL USE ORAL HYPOGLYCEMIC DX] Onset: 01-01-2023 Episodic Other aftercare (3 sources) 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 therapy; 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: [OTH JAIL CURRENT DRUG THERAPY] Onset: 01-01-2023 Episodic Other non-traumatic joint disorders (1 source) Pain in right hip; 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: [PAIN IN RIGHT HIP] Onset: 11-25-2022 Episodic Other nutritional; endocrine; and metabolic disorders (5 sources) Obesity; 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: [Obesity, unspecified] 10-16-2023 Chronic Other nutritional; endocrine; and metabolic disorders [...] mass index (BMI) 32.0-32.9, adult Chronic Other nutritional; endocrine; and metabolic disorders (1 source) Obesity, unspecified; 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: [Obesity, unspecified] 06-22-2024 Chronic Other screening for suspected conditions (not mental disorders or infectious disease) (9 sources) Encounter for screening mammogram for malignant [...] Range Facility Outside Colonoscopyon 2022 Outside Colonoscopy [id number]: 127 Normal [facility] Reminderson 12-27-2022 Reminders - From: Bethany Smith LPN To: GSN - Clinical; Sent: 12/27/2022 10:52:47 EDT Show up: 11/26/2032 07:00:00 EDT Subject: colonoscopy recall Due Date/Time: 12/26/2032 07:00:00 EDT Reminder/Recall Patient due for screening colonoscopy 12/26/2032. Normal [facility] POINT OF CARE GLUCOSEon - Glucose [Mass/Vol] 261 mg/dL Critically high 74-106 [facility] Comment on above: Performed By: #### P OCGLUC #### [facility] [address] [place], [place] [id number] Dr. Rusty Armstrong Consent for Procedure/Surger yon 12-06-2022 Consent for Procedure/Surgery [id number]#[id number]: 127 Normal [facility] Facesheeton 12-06-2022 Facesheet [id number]: 127 Normal [facility] Ambulatory Visit Summaryon 0 12-05-2022 Ambulatory Visit Summary HILDA COOL :1950 Visit Date:12/05/2022 Ambulatory Visit Instructions Your Diagnosis Anemia Your Care Team Attending Physician - BERNARD ZUNIGA, Raheem Santana Primary Care Physician - ADEEL MARTINEZ LOCO This Is Your Medications List Contact prescribing [...] incontinence, female) Type 2 diabetes mellitus Normal [facility] Physician Referralon 023 Physician Referral [id number]: 127 Normal [facility] Physician Referralon 023 Physician Referral [id number]: 127 Normal [facility] FOLATE ([facility])on 3 Folate >20.0 Normal >3.0 [facility] Comment on above: Result Comment: A se rum folate concentration of less than 3.1 ng/mL is considered to represent clinical deficiency. Performed By: #### F ETIBC, FERR, B12FOL #### [facility] [address] [address] [address] Rusty Armstrong CBC AUTO DIFFon 11-20-2022 BASO # 0.0 103/ul Normal 0.0-0.1 [facility] Comment on above: Performed By: #### F ETIBC, FERR, B12FOL #### [facility] [address] [id number] [address] Rusty Armstrong Basophils/100 WBC (Bld) 0.7 % Normal 0.2-2.0 [facility] Comment on above: Performed By: #### F ETIBC, FERR, B12FOL #### [facility] [address] [place] [address] Dr. Rusty Armstrong EO # 0.2 103/ul Normal 0.0-0.7 [facility] Comment on above: Performed By: #### F ETIBC, FERR, B12FOL #### [facility] [address] [place] [address] Dr. Rusty Armstrong Eosinophils/100 WBC (Bld) 3.1 % Normal 0.9-7.0 [facility] Comment on above: Performed By: #### F ETIBC, FERR, B12FOL #### [facility] [address] [place] [address] Dr. Rusty Armstrong Erythrocyte distribution width (RBC) [Ratio] 12.6 % Normal 11.0-15.0 [facility] Comment on above: Performed By: #### F ETIBC, FERR, B12FOL #### [facility] [address] [place] [address] Dr. Rusty Armstrong Hematocrit (Bld) [Volume fraction] 33.2 % Critically low 36.0-48.0 [facility] Comment on above: Performed By: #### F ETIBC, FERR, B12FOL #### [facility] [address] [place] [address] Dr. Rusty Armstrong Hemoglobin (Bld) [Mass/Vol] 11.5 g/dL Critically low 12.0-16.0 [facility] Comment on above: Performed By: #### F ETIBC, FERR, B12FOL #### [facility] [address] [place] [address] Dr. Rusty Armstrong IG # 0.01 10e3/ul Normal 0.00-0.03 [facility] Comment on above: Performed By: #### F ETIBC, FERR, B12FOL #### [facility] [address] [place] [address] Dr. Rusty Armstrong IG % 0.2 % Normal 0.0-0.5 [facility] Comment on above: Performed By: #### F ETIBC, FERR, B12FOL #### [facility] [address] [place] [address] Dr. Rusty Armstrong LYMPH # 1.7 103/ul Normal 1.2-3.8 [facility] Comment on above: Performed By: #### F ETIBC, FERR, B12FOL #### [facility] [address] [place] [address] Dr. Rusty Armstrong Lymphocytes/100 WBC (Bld) 31.4 % Normal 20.5-60.0 [facility] Comment on above: Performed By: #### F ETIBC, FERR, B12FOL #### [facility] [address] [place] [address] Dr. Rusty Armstrong MANUAL DIFF REQ NO Normal [facility] Comment on above: Performed By: #### F ETIBC, FERR, B12FOL #### [facility] [address] [place] [address] Dr. Rusty Armstrong MCH (RBC) [Entitic mass] 30.2 pg Normal 26.7-34.0 [facility] Comment on above: Performed By: #### F ETIBC, FERR, B12FOL #### [facility] [address] [place] [address] Dr. Rusty Armstrong MCHC (RBC) [Mass/Vol] 34.6 g/dL Normal 29.9-35.2 [facility] Comment on above: Performed By: #### F ETIBC, FERR, B12FOL #### [facility] [address] [place] [address] Dr. Rusty Armstrong MCV (RBC) [Entitic vol] 87.1 fL Normal 81.0-99.0 [facility] Comment on above: Performed By: #### F ETIBC, FERR, B12FOL #### [facility] [address] [place] [address] Dr. Rusty Armstrong MONO # 0.4 103/ul Normal 0.3-0.8 [facility] Comment on above: Performed By: #### F ETIBC, FERR, B12FOL #### [facility] [address] [place] [address] Dr. Rusty Armstrong Monocytes/100 WBC (Bld) 6.5 % Normal 1.7-12.0 [facility] Comment on above: Performed By: #### F ETIBC, FERR, B12FOL #### [facility] [address] [address] [address] Rusty Armstrong NEUT # 3.2 103/ul Normal 1.4-6.5 [facility] Comment on above: Performed By: #### F ETIBC, FERR, B12FOL #### [facility] [address] [place] [address] Dr. Rusty Armstrogn Neutrophils/100 WBC (Bld) 58.1 % Normal 43.0-75.0 [facility] Comment on above: Performed By: #### F ETIBC, FERR, B12FOL #### [facility] [address] [place] [address] Dr. Rusty Armstrong Platelet mean volume (Bld) [Entitic vol] 9.2 fL Critically low 9.5-13.5 [facility] Comment on above: Performed By: #### F ETIBC, FERR, B12FOL #### [facility] [address] [place] [address] Dr. Rusty Armstrong PLT 317 103/ul Normal 150-450 [facility] Comment on above: Performed By: #### F ETIBC, FERR, B12FOL #### [facility] [address] [place] [address] Dr. Rusty Armstrong RBC 3.81 106/ul Critically low 4.20-5.40 [facility] Comment on above: Performed By: #### F ETIBC, FERR, B12FOL #### [facility] [address] [place] [address] Dr. Rusty Armstrong WBC 5.6 103/ul Normal 4.0-11.0 [facility] Comment on above: Performed By: #### F ETIBC, FERR, B12FOL #### [facility] [address] [place] [address] Dr. Rusty Armstrong FERRITINon 11-20-2022 Ferritin [Mass/Vol] 264.0 ng/mL Critically high 8.0-252.0 [facility] Comment on above: Performed By: #### V ITB12, FERR, FETIBC #### [facility] [address] [address] [address] Rusty Armstrong GLYCOHEMOGLOBIN A1Con 2022 ADA RECOMMENDATION SEE BELOW Normal [facility] Comment on above: Result Comment: ADA RECOMMENDED LIMIT 4.0 - 6.0 ADA THERAPEUTIC TARGET < 7.0 ACTION SUGGESTED > 7.0 Performed By: #### F ETIBC, FERR, B12FOL #### [facility] [address] [address] [address] Rusty Armstrong Glucose [Mass/Vol] 174 mg/dL Normal [facility] Comment on above: Performed By: #### F ETIBC, FERR, B12FOL #### [facility] [address] [address] [address] Rusty Armstrong HbA1c (Bld) [Mass fraction] 7.7 % Critically high 4.5-6.2 [facility] Comment on above: Performed By: #### F ETIBC, FERR, B12FOL #### [facility] [address] [address] [address] Rusty Armstrong IRON AND TIBCon 11-20-2022 % SATURATION 22.6 % Normal [facility] Comment on above: Performed By: #### V ITB12, FERR, FETIBC #### [facility] [address] [address] [address] Rusty Armstrong Iron [Mass/Vol] 76.0 ug/dL Normal 50.0-170.0 [facility] Comment on above: Performed By: #### V ITB12, FERR, FETIBC #### [facility] [address] [address] [address] Rusty Armstrong TIBC DIRECT 336.0 ug/dL Normal 250.0-450.0 [facility] Comment on above: Performed By: #### V ITB12, FERR, FETIBC #### [facility] [address] [address] [address] Rusty Armstrong TSHon 11-20-2022 TSH 0.049 uIU/mL Critically low 0.358-3.740 [facility] Comment on above: Performed By: #### T SH #### [facility] [address] [place] [address] Dr. Rusty Armstrong VITAMIN B12on 11-20-2022 Cobalamin (Vitamin B12) [Mass/Vol] 372.0 pg/mL Normal 193.0-986.0 [facility] Comment on above: Performed By: #### V ITB12, FERR, FETIBC #### [facility] [address] [place] [address] Dr. Rusty Armstrong XR LSPINE W_OBLS AND [...] SOTO SCHREIBER Date: 2022-11-20 15:34 Normal [facility] CBC AUTO DIFFon 08-31-2022 BASO # 0.0 103/ul Normal 0.0-0.1 [facility] Comment on above: Performed By: #### F ETIBC, FERR, B12FOL #### [facility] [address] [place] [address] Dr. Rusty Armstrong Basophils/100 WBC (Bld) 0.3 % Normal 0.2-2.0 [facility] Comment on above: Performed By: #### F ETIBC, FERR, B12FOL #### [facility] [address] [place] [address] Dr. Rusty Armstrong EO # 0.1 103/ul Normal 0.0-0.7 [facility] Comment on above: Performed By: #### F ETIBC, FERR, B12FOL #### [facility] [address] [place] [address] Dr. Rusty Armstrong Eosinophils/100 WBC (Bld) 1.6 % Normal 0.9-7.0 [facility] Comment on above: Performed By: #### F ETIBC, FERR, B12FOL #### [facility] [address] [place] [address] Dr. Rusty Armstrong Erythrocyte distribution width (RBC) [Ratio] 12.7 % Normal 11.0-15.0 [facility] Comment on above: Performed By: #### F ETIBC, FERR, B12FOL #### [facility] [address] [place] [address] Dr. Rusty Armstrong Hematocrit (Bld) [Volume fraction] 33.5 % Critically low 36.0-48.0 [facility] Comment on above: Performed By: #### F ETIBC, FERR, B12FOL #### [facility] [address] [place] [address] Dr. Rusty Armstrong Hemoglobin (Bld) [Mass/Vol] 12.2 g/dL Normal 12.0-16.0 [facility] Comment on above: Performed By: #### F ETIBC, FERR, B12FOL #### [facility] [address] [place] [address] Dr. Rusty Armstrong IG # 0.01 10e3/ul Normal 0.00-0.03 [facility] Comment on above: Performed By: #### F ETIBC, FERR, B12FOL #### [facility] [address] [place] [address] Dr. Rusty Armstrong IG % 0.1 % Normal 0.0-0.5 [facility] Comment on above: Performed By: #### F ETIBC, FERR, B12FOL #### [facility] [address] [place] [address] Dr. Rusty Armstrong LYMPH # 1.7 103/ul Normal 1.2-3.8 [facility] Comment on above: Performed By: #### F ETIBC, FERR, B12FOL #### [facility] [address] [place] [address] Dr. Rusty Armstrong Lymphocytes/100 WBC (Bld) 24.6 % Normal 20.5-60.0 [facility] Comment on above: Performed By: #### F ETIBC, FERR, B12FOL #### [facility] [address] [place] [address] Dr. Rusty Armstrong MANUAL DIFF REQ NO Normal [facility] Comment on above: Performed By: #### F ETIBC, FERR, B12FOL #### [facility] [address] [place] [address] Dr. Rusty Armstrong MCH (RBC) [Entitic mass] 29.9 pg Normal 26.7-34.0 [facility] Comment on above: Performed By: #### F ETIBC, FERR, B12FOL #### [facility] [address] [place] [address] Dr. Rusty Armstrong MCHC (RBC) [Mass/Vol] 36.4 g/dL Critically high 29.9-35.2 [facility] Comment on above: Performed By: #### F ETIBC, FERR, B12FOL #### [facility] [address] [place] [address] Dr. Rusty Armstrong MCV (RBC) [Entitic vol] 82.1 fL Normal 81.0-99.0 [facility] Comment on above: Performed By: #### F ETIBC, FERR, B12FOL #### [facility] [address] [place] [address] Dr. Rusty Armstrong MONO # 0.4 103/ul Normal 0.3-0.8 [facility] Comment on above: Performed By: #### F ETIBC, FERR, B12FOL #### [facility] [address] [place] [address] Dr. Rusty Armstrong Monocytes/100 WBC (Bld) 5.2 % Normal 1.7-12.0 [facility] Comment on above: Performed By: #### F ETIBC, FERR, B12FOL #### [facility] [address] [place] [address] Dr. Rusty Armtsrong NEUT # 4.6 103/ul Normal 1.4-6.5 [facility] Comment on above: Performed By: #### F ETIBC, FERR, B12FOL #### [facility] [address] [place] [address] Dr. Rusty Armstrong Neutrophils/100 WBC (Bld) 68.2 % Normal 43.0-75.0 [facility] Comment on above: Performed By: #### F ETIBC, FERR, B12FOL #### [facility] Laboratory [address] [place] [address] Dr. Rusty Armstrong Platelet mean volume (Bld) [Entitic vol] 9.4 fL Critically low 9.5-13.5 [facility] Comment on above: Performed By: #### F ETIBC, FERR, B12FOL #### [facility] Laboratory [address] [place] [address] Dr. Rusty Armstrong PLT 254 103/ul Normal 150-450 [facility] Comment on above: Performed By: #### F ETIBC, FERR, B12FOL #### [facility] [address] [place] [address] Dr. Rusty Armstrong RBC 4.08 106/ul Critically low 4.20-5.40 [facility] Comment on above: Performed By: #### F ETIBC, FERR, B12FOL #### [facility] Laboratory [address] [place] [address] Dr. Rusty Armstrong WBC 6.7 103/ul Normal 4.0-11.0 [facility] Comment on above: Performed By: #### F ETIBC, FERR, B12FOL #### [facility] [address] [place] [address] Dr. Rusty Armstrong FERRITINon 08-31-2022 Ferritin [Mass/Vol] 161.0 ng/mL Normal 8.0-252.0 [facility] Comment on above: Performed By: #### F ETIBC, FERR, B12FOL #### [facility] [address] [place] [address] Dr. Rusty Armstrong IRON AND TIBCon 08-31-2022 % SATURATION 20.3 % Normal [facility] Comment on above: Performed By: #### F ETIBC, FERR, B12FOL #### [facility] [address] [place] [address] Dr. Rusty Armstrong Iron [Mass/Vol] 72.0 ug/dL Normal 50.0-170.0 [facility] Comment on above: Performed By: #### F ETIBC, FERR, B12FOL #### [facility] [address] [place] [address] Dr. Rusty Armstrong TIBC DIRECT 355.0 ug/dL Normal 250.0-450.0 [facility] Comment on above: Performed By: #### F ETIBC, FERR, B12FOL #### [facility] [address] [place] [address] Dr. Rusty Armstrong TSHon 08-31-2022 TSH 0.055 uIU/mL Critically low 0.358-3.740 [facility] Comment on above: Performed By: #### T SH #### [facility] [address] [place] [address] Dr. Rusty Armstrong VIT B12 AND FOLATEon 023 Cobalamin (Vitamin B12) [Mass/Vol] 413.0 pg/mL Normal 193.0-986.0 [facility] Comment on above: Performed By: #### F ETIBC, FERR, B12FOL #### [facility] [address] [place] [address] Dr. Rusty Armstrong FOLATE 20.10 ng/mL Normal 8.60-58.90 [facility] Comment on above: Performed By: #### F ETIBC, FERR, B12FOL #### [facility] [address] [place] [address] Dr. Rusty Armstrong MG MAMM SCREEN 3D JOSE C CADon 06-25-2022 MG MAMM SCREEN 3D JOSE C CAD Patient: HILDA COOL Exam Date: 06/25/2022 : 1950 Gender:F Ordering : DR LOCO DENIS D.O. Admission #: [id number] Family : Order #: [id number] CLICK HERE TO VIEW EXAM RADIOLOGY REPORT [...] breast cancer at age 41. LOCATION: [facility] BREAST COMPOSITION: Scattered areas fibroglandular density. FINDINGS: [...] MD on 06/25/2022 at 12:50 Normal [facility] CBC AUTO DIFFon 06-11-2022 BASO # 0.0 103/ul Normal 0.0-0.1 [facility] Comment on above: Performed By: #### F ETIBC, FERR, B12FOL #### [facility] Laboratory [address] [address] [address] Rusty Armstrong Basophils/100 WBC (Bld) 0.3 % Normal 0.2-2.0 [facility] Comment on above: Performed By: #### F ETIBC, FERR, B12FOL #### [facility] [address] [address] [address] Rusty Armstrong EO # 0.1 103/ul Normal 0.0-0.7 [facility] Comment on above: Performed By: #### F ETIBC, FERR, B12FOL #### [facility] [address] [address] [address] Rusty Armstrong Eosinophils/100 WBC (Bld) 1.6 % Normal 0.9-7.0 [facility] Comment on above: Performed By: #### F ETIBC, FERR, B12FOL #### [facility] [address] [address] [address] Rusty Armstrong Erythrocyte distribution width (RBC) [Ratio] 12.8 % Normal 11.0-15.0 [facility] Comment on above: Performed By: #### F ETIBC, FERR, B12FOL #### [facility] [address] [place] [address] Dr. Rusty Armstrong Hematocrit (Bld) [Volume fraction] 33.5 % Critically low 36.0-48.0 [facility] Comment on above: Performed By: #### F ETIBC, FERR, B12FOL #### [facility] [address] [place] [address] Dr. Rusty Armstrong Hemoglobin (Bld) [Mass/Vol] 11.6 g/dL Critically low 12.0-16.0 [facility] Comment on above: Performed By: #### F ETIBC, FERR, B12FOL #### [facility] [address] [place] [address] Dr. Rusty Armstrong IG # 0.02 10e3/ul Normal 0.00-0.03 [facility] Comment on above: Performed By: #### F ETIBC, FERR, B12FOL #### [facility] [address] [place] [address] Dr. Rusty Armstrong IG % 0.3 % Normal 0.0-0.5 [facility] Comment on above: Performed By: #### F ETIBC, FERR, B12FOL #### [facility] [address] [place] [address] Dr. Rusty Armstrong LYMPH # 1.8 103/ul Normal 1.2-3.8 [facility] Comment on above: Performed By: #### F ETIBC, FERR, B12FOL #### [facility] [address] [place] [address] Dr. Rusty Armstrong Lymphocytes/100 WBC (Bld) 25.6 % Normal 20.5-60.0 [facility] Comment on above: Performed By: #### F ETIBC, FERR, B12FOL #### [facility] [address] [place] [address] Dr. Rusty Armstrong MANUAL DIFF REQ NO Normal [facility] Comment on above: Performed By: #### F ETIBC, FERR, B12FOL #### [facility] [address] [place] [address] Dr. Rusty Armstrong MCH (RBC) [Entitic mass] 29.9 pg Normal 26.7-34.0 [facility] Comment on above: Performed By: #### F ETIBC, FERR, B12FOL #### [facility] [address] [place] [address] Dr. Rusty Armstrong MCHC (RBC) [Mass/Vol] 34.6 g/dL Normal 29.9-35.2 [facility] Comment on above: Performed By: #### F ETIBC, FERR, B12FOL #### [facility] [address] [place] [address] Dr. Rusty Armstrong MCV (RBC) [Entitic vol] 86.3 fL Normal 81.0-99.0 [facility] Comment on above: Performed By: #### F ETIBC, FERR, B12FOL #### [facility] [address] [place] [address] Dr. Rusty Armstrong MONO # 0.4 103/ul Normal 0.3-0.8 [facility] Comment on above: Performed By: #### F ETIBC, FERR, B12FOL #### [facility] [address] [place] [address] Dr. Rusty Armstrong Monocytes/100 WBC (Bld) 5.9 % Normal 1.7-12.0 [facility] Comment on above: Performed By: #### F ETIBC, FERR, B12FOL #### [facility] [address] [place] [address] Dr. Rusty Armstrong NEUT # 4.6 103/ul Normal 1.4-6.5 [facility] Comment on above: Performed By: #### F ETIBC, FERR, B12FOL #### [facility] [address] [place] [address] Dr. Rusty Armstrong Neutrophils/100 WBC (Bld) 66.3 % Normal 43.0-75.0 [facility] Comment on above: Performed By: #### F ETIBC, FERR, B12FOL #### [facility] [address] [address] [address] Rusty Armstrong Platelet mean volume (Bld) [Entitic vol] 8.9 fL Critically low 9.5-13.5 [facility] Comment on above: Performed By: #### F ETIBC, FERR, B12FOL #### [facility] [address] [address] [address] Rusty Armstrong PLT 242 103/ul Normal 150-450 [facility] Comment on above: Performed By: #### F ETIBC, FERR, B12FOL #### [facility] [address] [address] [address] Rusty Armstrong RBC 3.88 106/ul Critically low 4.20-5.40 [facility] Comment on above: Performed By: #### F ETIBC, FERR, B12FOL #### [facility] [address] [place] [address] Dr. Rusty Armstrong WBC 7.0 103/ul Normal 4.0-11.0 [facility] Comment on above: Performed By: #### F ETIBC, FERR, B12FOL #### [facility] [address] [address] [address] Rusty Armstrong DIRECT LDLon 06-11-2022 Cholesterol in LDL [Mass/Vol] 111 mg/dL Normal [facility] Comment on above: Performed By: #### F ETIBC, FERR, B12FOL #### [facility] [address] [place] [address] Dr. Rusty Armstrong DLDL NORMAL SEE BELOW Normal [facility] Comment on above: Result Comment: <100 mg/dl OPTIMAL 100 - 129 mg/dl NEAR OR ABOVE OPTIMAL 130 - 159 mg/dl BORDERLINE HIGH 160 - 189 mg/dl HIGH >190 mg/dl VERY HIGH Performed By: #### F ETIBC, FERR, B12FOL #### [facility] [address] [place] [address] Dr. Rusty Armstrong LIPID PROFILEon 06-11-2022 CHOL-HDL RATIO NORM SEE BELOW Normal [facility] Comment on above: Result Comment: 3.3 - 4.4 LOW RISK 4.4 - 7.1 AVERAGE RISK 7.1 - 11.0 MODERATE RISK >11.0 HIGH RISK Performed By: #### A LT, LIPID, TSH, BMP, DLDL #### [facility] [address] [address] [address] Rusty Armstrong Cholesterol [Mass/Vol] 215 mg/dL Critically high <=200 [facility] Comment on above: Performed By: #### A LT, LIPID, TSH, BMP, DLDL #### [facility] [address] [address] [address] Rusty Armstrong Cholesterol in HDL [Mass/Vol] 38 mg/dL Critically low 40-60 [facility] Comment on above: Performed By: #### A LT, LIPID, TSH, BMP, DLDL #### [facility] [address] [place] [address] Dr. Rusty Armstrong Cholesterol.total/Ch olesterol in HDL [Mass ratio] 5.7 {ratio} Normal [facility] Comment on above: Performed By: #### A LT, LIPID, TSH, BMP, DLDL #### [facility] [address] [place] [address] Dr. Rusty Armstrong HDL NORMAL > or = 60 mg/dl - LO W CARDIOVASCULAR RISK <40 mg/dl - HIGH CARDIOVASCULAR RISK Normal [facility] Comment on above: Performed By: #### A LT, LIPID, TSH, BMP, DLDL #### [facility] [address] [address] [address] Rusty Armstrong Triglyceride [Mass/Vol] 401 mg/dL Critically high <=150 [facility] Comment on above: Performed By: #### A LT, LIPID, TSH, BMP, DLDL #### [facility] [address] [address] [address] Rusty Armstrong VLDL CALC 80.2 mg/dL Normal [facility] Comment on above: Performed By: #### A LT, LIPID, TSH, BMP, DLDL #### [facility] [address] [place] [address] Dr. Rusty Armstrong MICROALBUMIN, RAND URon 11-0 mALB 3.0 mg/L Normal <=30.0 [facility] Comment on above: Performed By: #### F ETIBC, FERR, B12FOL #### [facility] [address] [place] [address] Dr. Rusty Armstrong PROF CHEM 8 (BAS METB)on Anion gap [Moles/Vol] 9.6 mmol/L Normal [facility] Comment on above: Performed By: #### F ETIBC, FERR, B12FOL #### [facility] [address] [place] [address] Dr. Rusty Armstrong Calcium [Mass/Vol] 9.2 mg/dL Normal 8.5-10.1 [facility] Comment on above: Performed By: #### F ETIBC, FERR, B12FOL #### [facility] [address] [place] [address] Dr. Rusty Armstrong Chloride [Moles/Vol] 103 mmol/L Normal 98-107 [facility] Comment on above: Performed By: #### F ETIBC, FERR, B12FOL #### [facility] [address] [place] [address] Dr. Rusty Armstrong CO2 [Moles/Vol] 27.8 mmol/L Normal 21.0-32.0 [facility] Comment on above: Performed By: #### F ETIBC, FERR, B12FOL #### [facility] [address] [place] [address] Dr. Rusty Armstrong Creatinine [Mass/Vol] 0.83 mg/dL Normal 0.55-1.02 [facility] Comment on above: Performed By: #### F ETIBC, FERR, B12FOL #### [facility] [address] [place] [address] Dr. Rusty Armstrong EGFR-AF BURKINAN >60 Normal >=60 [facility] Comment on above: Performed By: #### F ETIBC, FERR, B12FOL #### [facility] [address] [place] [address] Dr. Rusty Armstrong EGFR-NON AF BURKINAN >60 Normal >=60 [facility] Comment on above: Performed By: #### F ETIBC, FERR, B12FOL #### [facility] [address] [address] [address] Rusty Armstrong Glucose [Mass/Vol] 221 mg/dL Critically high 74-106 T [facility] Comment on above: Performed By: #### F ETIBC, FERR, B12FOL #### [facility] [address] [place] [address] Dr. Rusty Armstrong Potassium [Moles/Vol] 4.4 mmol/L Normal 3.5-5.1 [facility] Comment on above: Performed By: #### F ETIBC, FERR, B12FOL #### [facility] [address] [place] [address] Dr. Rusty Armstrong Sodium [Moles/Vol] 136 mmol/L Normal 136-145 [facility] Comment on above: Performed By: #### F ETIBC, FERR, B12FOL #### [facility] [address] [place] [address] Dr. Rusty Armstrong Urea nitrogen [Mass/Vol] 21.0 mg/dL Critically high 7.0-18.0 [facility] Comment on above: Performed By: #### F ETIBC, FERR, B12FOL #### [facility] [address] [place] [address] Dr. Rusty Armstrong Urea nitrogen/Creatinine [Mass ratio] 25.3 mg/mg Normal [facility] Comment on above: Performed By: #### F ETIBC, FERR, B12FOL #### [facility] [address] [place] [address] Dr. Rusty Armstrong SGPTon 06-11-2022 ALT [Catalytic activity/Vol] 18 U/L Normal 14-59 [facility] Comment on above: Performed By: #### F ETIBC, FERR, B12FOL #### [facility] [address] [place] [address] Dr. Rusty Armstrong TSHon 06-11-2022 TSH 0.043 uIU/mL Critically low 0.358-3.740 [facility] Comment on above: Performed By: #### F ETIBC, FERR, B12FOL #### [facility] [address] [address] [address] Rusty Armstrong GLYCOHEMOGLOBIN A1Con 2021 ADA RECOMMENDATION SEE BELOW Normal [facility] Comment on above: Result Comment: ADA RECOMMENDED LIMIT 4.0 - 6.0 ADA THERAPEUTIC TARGET < 7.0 ACTION SUGGESTED > 7.0 Performed By: #### F ETIBC, FERR, B12FOL #### [facility] [address] [address] [address] Rusty Armstrong Glucose [Mass/Vol] 157 mg/dL Normal [facility] Comment on above: Performed By: #### F ETIBC, FERR, B12FOL #### [facility] [address] [address] [address] Rusty Armstrong HbA1c (Bld) [Mass fraction] 7.1 % Critically high 4.5-6.2 [facility] Comment on above: Performed By: #### F ETIBC, FERR, B12FOL #### [facility] [address] [address] [address] Rusty Armstrong Vital Signs Date Time Vital Sign Value Performing Clinician Facility 06-22-2024 11:28-0500 Body height 162.56 cm [facility] 06-22-2024 11:28-0500 Body mass index (BMI) [Ratio] 33.9 kg/m2 [facility] 06-22-2024 11:28-0500 Body weight 89.58 kg [facility] 06-22-2024 11:28-0500 Diastolic blood pressure 72 mm[Hg] [facility] 06-22-2024 11:28-0500 Heart rate 62 /min [facility] 06-22-2024 11:28-0500 Respiratory rate 12 /min [facility] 06-22-2024 11:28-0500 Systolic blood pressure 134 mm[Hg] [facility] 07-19-2023 14:45-0500 Body height 162.56 cm Loco Ball Other [facility] Other 07-19-2023 14:45-0500 Body mass index (BMI) [Ratio] 32.34 kg/m2 Loco Ball Other [facility] Other 07-19-2023 14:45-0500 Body weight 85.46 kg Loco Ball Other [facility] Other 07-19-2023 14:45-0500 Diastolic blood pressure 67 mm[Hg] Loco Ball Other [facility] Other 07-19-2023 14:45-0500 Respiratory rate 16 /min Loco Ball Other [facility] Other 07-19-2023 14:45-0500 SaO2% (BldA) [Mass fraction] 96 % Loco Ball Other [facility] Other 07-19-2023 14:45-0500 Systolic blood pressure 121 mm[Hg] Loco Ball Other [facility] Other 06-17-2023 14:30-0500 Body height 162.56 cm Loco Ball Other [facility] Other 06-17-2023 14:30-0500 Body mass index (BMI) [Ratio] 32.58 kg/m2 Loco Ball Other [facility] Other 06-17-2023 14:30-0500 Body weight 86.09 kg Loco Ball Other [facility] Other 06-17-2023 14:30-0500 Diastolic blood pressure 75 mm[Hg] Loco Ball Other [facility] Other 06-17-2023 14:30-0500 Respiratory rate 12 /min Loco Ball Other [facility] Other 06-17-2023 14:30-0500 Systolic blood pressure 119 mm[Hg] Loco Ball Other [facility] Other 03-21-2023 11:15-0400 Body height 162.56 cm Loco Ball Other [facility] Other 03-21-2023 11:15-0400 Body mass index (BMI) [Ratio] 31.68 kg/m2 Loco Ball Other [facility] Other 03-21-2023 11:15-0400 Body weight 83.73 kg Loco Ball Other [facility] Other 03-21-2023 11:15-0400 Diastolic blood pressure 70 mm[Hg] Loco Ball Other [facility] Other 03-21-2023 11:15-0400 Respiratory rate 12 /min Loco Ball Other [facility] Other 03-21-2023 11:15-0400 Systolic blood pressure 112 mm[Hg] Loco Ball Other [facility] Other Encounters Encounter Date Encounter Type Care Provider Facility Start: 06-22-2024 End: 06-22-2024 ambulatory [facility] Work Phone: Start: 06-22-2024 End: 06-22-2024 Patient encounter procedure [facility] Work Phone: Start: 06-20-2024 Patient encounter procedure [facility] Start: 06-17-2024 Non-patient / Non-visit [facility] Work Phone: Start: 09-02-2023 End: 09-02-2023 ambulatory Loco Denis Other [facility] Other Start: 09-02-2023 Telephone encounter Loco Ball [facility] Start: 08-21-2023 End: 08-21-2023 ambulatory Loco Ball Other [facility] Other Start: 08-21-2023 Telephone encounter Loco Ball [facility] Start: 08-07-2023 End: 08-07-2023 ambulatory Loco Ball Other [facility] Other Start: 08-07-2023 Telephone encounter Loco Ball [facility] Start: 07-24-2023 End: 07-24-2023 ambulatory Loco Ball Other [facility] Other Start: 07-24-2023 Telephone encounter Loco Ball [facility] Start: 07-23-2023 End: 07-23-2023 ambulatory Loco Ball Other [facility] Other Start: 07-23-2023 Telephone encounter Loco Ball [facility] Start: 07-19-2023 End: 07-19-2023 ambulatory Loco Ball Other [facility] Other Start: 07-19-2023 Office outpatient vi sit 15 minutes Loco Ball [facility] Start: 07-19-2023 Telephone encounter Loco Ball [facility] Start: 07-17-2023 End: 07-17-2023 ambulatory Loco Ball Other [facility] Other Start: 07-17-2023 Telephone encounter Loco Ball [facility] Start: 07-02-2023 End: 07-02-2023 ambulatory Loco Ball Other [facility] Other Start: 07-02-2023 Telephone encounter Loco Ball [facility] Start: 07-01-2023 End: 07-01-2023 ambulatory Loco Ball Other [facility] Other Start: 07-01-2023 Telephone encounter Loco Ball [facility] Start: 06-24-2023 End: 06-24-2023 ambulatory Loco Denis Other [facility] Other Start: 06-24-2023 Telephone encounter Loco Denis [facility] Start: 06-18-2023 End: 06-18-2023 ambulatory Loco Denis Other [facility] Other Start: 06-18-2023 Telephone encounter Loco Denis [facility] Start: 06-17-2023 End: 06-17-2023 ambulatory Loco Denis Other [facility] Other Start: 06-17-2023 Patient encounter procedure Loco Denis [facility] Start: 06-12-2023 End: 06-12-2023 ambulatory Looc Denis Other [facility] Other Start: 06-12-2023 Telephone encounter Loco PUENTES [facility] Start: 03-21-2023 End: 03-21-2023 ambulatory Loco Denis Other [facility] Other Start: 03-21-2023 Office outpatient vi sit 15 minutes Loco Denis [facility] Start: 03-06-2023 End: 03-06-2023 ambulatory Loco Denis Other [facility] Other Start: 03-06-2023 Telephone encounter Loco Denis [facility] Start: 12-26-2022 End: 12-27-2022 ambulatory Raheem SANTANA Facility:CD:[id number] Start: 12-05-2022 End: 12-06-2022 ambulatory Raheem SANTANA Facility: [facility] Start: 11-28-2022 ambulatory Devon DEGROOT Facility : [facility] Start: 11-23-2022 ambulatory Raheem SANTANA Facility : [place] Start: 11-22-2022 End: 11-22-2022 ambulatory Loco Denis Other [facility] Other Start: 11-22-2022 Telephone encounter Loco Denis [facility] Start: 11-21-2022 Telephone encounter Loco PUENTES Replaced By [facility] Start: 11-21-2022 End: 11-22-[address] LOCO DENIS [facility] Other Start: 11-20-2022 End: 11-21-[address] LOCO DENIS Facility:[facility] Start: 10-22-2022 End: 10-22-2022 ambulatory Loco Denis Other [facility] Other Start: 10-22-2022 Office outpatient vi sit 15 minutes Loco Denis [facility] Start: 08-31-2022 End: 09-01-[address] LOCO DENIS Facility:[facility] Start: 06-25-2022 End: 06-26-[address] LOCO DENIS Facility:[facility] Start: 06-11-2022 End: 06-12-[address] LOCO DENIS Facility:[facility] Start: 04-20-2022 End: 04-21-[address] LOCO DENIS Facility:[facility] Start: 01-22-2022 ambulatory Devon Carter ty:EU [facility] Plan of Treatment Date Care Activity Detail Author Comprehensive metabo lic 2000 panel - Serum or Plasma [facility] [place] enter MG Breast - bilateral Screening [facility] Microalbumin [Mass/volume] in Urine [facility] Immunizations Immunization Date Immunization Notes Care Provider Deni garza 06-22-2024 influenza, high dose seasonal, preservative-free [facility] 04-11-2023 influenza, high dose seasonal, preservative-free Loco Denis Other [facility] Other 04-11-2023 influenza virus vaccine, unspecified formulation [facility] 06-11-2022 influenza virus vaccine, split virus (incl. purified surface antigen) Loco Denis Other [facility] Other 06-11-2022 influenza virus vaccine, unspecified formulation [facility] 05-03-2021 influenza virus vaccine, split virus (incl. purified surface antigen) Loco Denis Other [facility] Other 05-03-2021 influenza virus vaccine, unspecified formulation [facility] 09-28-2020 COVID-19 Vaccine Moderna - Documentation Purposes Only Loco Denis Other [facility] 06-06-2020 influenza virus vaccine, split virus (incl. purified surface antigen) Loco Denis Other [facility] Other 06-06-2020 influenza virus vaccine, unspecified formulation [facility] 06-05-2019 influenza virus vaccine, split virus (incl. purified surface antigen) Loco Denis Other [facility] Other 06-05-2019 influenza virus vaccine, unspecified formulation [facility] 06-04-2018 influenza virus vaccine, split virus (incl. purified surface antigen) Loco Denis Other [facility] Other 06-04-2018 influenza virus vaccine, unspecified formulation [facility] 06-04-2018 pneumococcal polysaccharide vaccine, 23 valent Loco Denis Other [facility] 04-23-2017 influenza virus vaccine, split virus (incl. purified surface antigen) Loco Denis Other [facility] Other 04-23-2017 influenza virus vaccine, unspecified formulation [facility] 11-20-2016 pneumococcal conjuga te vaccine, 13 valent Loco Denis Other [facility] 10-22-2011 diphtheria, tetanus toxoids and acellular pertussis vaccine, unspecified formulation Loco Denis Other [facility] Payers Date Payer Category Payer Private Health Insurance [id number] 1959 Medicare [id number] 2.1 [id number] 1959 Private Health Insurance [id number] 1950 Unknown [id number] 2.16.8 [id number] 1950 Unknown [id number] 2.16.8 40.1.111214.3.579.2.727 1950 Unknown [id number] 2.16.8 40.1.702984.3.579.2.727 1950 Unknown [id number] 2.16.8 40.1.403084.3.579.2.727 1950 Unknown [id number] 2.16.84 0.1.981033.3.579.2.593 1950 Unknown [id number] 2.16.84 0.1.993168.3.579.2.593 1950 Unknown [id number] 2.16.84 0.1.859034.3.579.2.593 1950 Unknown [id number] 2.16.84 0.1.640665.3.579.2.593 1950 Unknown [id number] 2.16.84 0.1.603275.3.579.2.593 1950 Unknown [id number] 2.16.84 0.1.447121.3.579.2.593 1950 Unknown [id number] 2.16.84 0.1.509616.3.579.2.593 Social History Date Type Detail Facility Sex Assigned At [facility] Other Tobacco smoking stat [facility] Unknown if ever smoked [facility] Work Phone: Start: 06-22-2024 Sex Female (finding) [facility] Start: 1950 Sex Assigned At Female F [facility] Medical Equipment Procedure Code Equipment Code Equipment Origin al Text Equipment Identifier Dates OneTouch UltraSo ft Lancets - Blood Sugar Diagnostic (Onetouch Ultra Test) strip Start: 11-28-2023 Lancets (Onetouc h Delica Plus Lancet) [facility] Start: 10-22-2023 Clinical Notes 10-22-2022 to 08-21-2023 Note Date & Type Note Facility 08-21-2023 Evaluation note Encounter Date Diagnosis Assessment Notes Aug, Primary hypertension (ICD-10 - I10) [facility] Other 01-03-2024 Evaluation note* Encounter Date Diagnosis Assessment Notes Treatment Notes Treatment Clinical Notes Aug, Primary hypertension (ICD-10 - I10) [facility] Other 12-20-2023 Evaluation note* Encounter Date Diagnosis Assessment Notes Treatment Notes Treatment Clinical Notes Jul, Acute bronchitis due to other specified organisms (ICD-10 - J20.8) [facility] Other 12-15-2023 Evaluation note* Encounter Date Diagnosis [...] BS may increase while experiencing respiratory illness [facility] Other 11-28-2023 Evaluation note* Encounter Date Diagnosis Assessment Notes Treatment Notes Treatment Clinical Notes Jun, Abnormal mammogram of left breast (ICD-10 - R92.8) [facility] Other 11-27-2023 Evaluation note* Encounter Date Diagnosis Assessment Notes Treatment Notes Treatment Clinical Notes Jun, Autoimmune thyroiditis (ICD-10 - E06.3) Yearly TSH [facility] Other 11-20-2023 Evaluation note* Encounter Date Diagnosis Assessment Notes Treatment Notes Treatment Clinical Notes Jun, Primary hypertension (ICD-10 - I10) [facility] Other 11-13-2023 Evaluation note* Encounter Date Diagnosis [...] High risk medication use (ICD-10 - Z79.899) [facility] Other 11-08-2023 Evaluation note* Encounter Date Diagnosis Assessment Notes Treatment Notes Treatment Clinical Notes Jun, Primary hypertension (ICD-10 - I10) [facility] Other 08-17-2023 Evaluation note* Encounter Date Diagnosis [...] BS 200 Reduce calores/sweets and increase activity [facility] Other 08-02-2023 Evaluation note* Encounter Date Diagnosis Assessment Notes Treatment Notes Treatment Clinical Notes Mar, Type 2 diabetes mellitus with hyperglycemia, without long-term current use of insulin (ICD-10 - E11.65) [facility] Other 05-24-2023 NoteOPERATIVE NOTE OPERATION DATE: 12/26/2022 [...] room in good condition. 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 FINDINGS: BONES:No fracture, acute abnormality, or significant arthropathy. SOFT TISSUES:No visible soft tissue swelling. EFFUSION:None visible. OTHER: Negative. IMPRESSION: 1. No acute bone abnormality or bone lesion. 2. Minimal degenerative joint disease. Electronically authenticated by: SOTO SCHREIBER Date: 2022-11-20 15:27[facility]03-20-2023 Evaluation note* Encounter Date Diagnosis Assessment Notes [...] requires no treatment. Push fluids and rest [facility] Other Evaluation noteNo InformationNort [facility] Other Evaluation note* Diagnosis Onset Date Resolution Status Admit Date Hypercholesterolemia acute Nove mber 2023 10:46am Hypothyroid acute June 10:46am Medicare annual wellness vis it, subsequent acute June 22 10:46am Obesity acute June 22, 2024 10:46am Screening mammogram for ra[facility] cancer acute June 22 10:46am Type 2 diabetes mellitus wit h diabetic polyneuropathy January 16, 2019 acute June 22, 2024 10:46am Type 2 diabetes mellitus wit h hyperglycemia acute June 22 10:46am [facility] Work Phone: Hiscpir general Narrative - Reported* Type Description Date [...] Colonoscopy 2011 Hospitalization History see surgical history [facility] Other [facility] general Narrative - Reported* Type Description Date [...] Colonoscopy 12/2022 Hospitalization History see surgical history [facility] Other History general Narrative - Reported* Type [...] breast 07/2023 Hospitalization History see surgical history [facility] Other Reason for referral (narrative)* Reason Referral for EGD and Colonoscopy Diagnosis 1 Anemia, unspecified type (D64.9) Diagnosis 2 Colon cancer screeni (Z12.11) Referral Organization [facility] sheryl Referring Provider First Name Loco Referring Provider Last Name Adeel Referring Provider Specialty Internal Dc dicine Referred Organization [facility] Referred Provider Raheem Santana Referred Address [address], [place],[address] Referred Provider Specialty Surgery Referral Priority Routine [...] CBC, B12, FA, iron, TIBC and ferritin. [facility] Other Summary Purpose Family History No Family History Records FoundNo Family History Records Found Advance Directives Advance Directive Response Recorded Date/ Time Advance Directives No August 27, 2023 10:49am Chief Complaint and Reason for Visit Chief Complaint Admit Date CC Adult Risk Stratification June 172023 10:59am Wellness June 22, 2024 10:46am Reason for Visit Admit Date Hypercholesterolemia June 22, 2024 10:46am Hypothyroid June 22, 2024 10:46am Medicare annual wellness visit, subseque nt June 22, 2024 10:46am Obesity June 22, 2024 10:46am Screening mammogram for breast cancer No vember 2023 10:46am Type 2 diabetes mellitus with diabetic p olyneuropathy June 22, 2024 10:46am Type 2 diabetes mellitus with hyperglyce julia June 22, 2024 10:46am Additional Source Comments REASON FOR VISIT (unrecogniz ed section and content) [phone] cold and wheezi ngXray resultsNo InformationLab ResultsLab Resultsback painrefillWELLNESSCologuardRefillNo InformationNo Informationmedication questionWELLNESSWants XraywheezingNo InformationFNA resultsATBrefillMedication ChangeRefills INFORMATION SOURCE (unrecogn ized section and content) DATE CREATED AUTHOR 01/11/2023 [facility] DATE CREATED AUTHOR AUTHOR'S ORGANIZ ATION 01/11/2023 [facility] Teams (unrecognized sec tion and content) Team Status: Active Member Role Status Dates Loco Denis DO Primary Care Provider Active Team Status: Active Member Role Status Dates Loco Denis DO Primary Care Provide r, Attending Provider Active Start: June 17, 2024 Team Status: Inactive Member Role Status Dates Loco Denis DO Primary Care Provide r, Attending Provider Active Start: June 22, 2024 End: June 22, 2024 Goals (unrecognized section and content) Goals may be documented in a n alternate section FOR RECORDS PERTAINING TO PATIENTS WHO ARE [...] BE BASED ON THE PRIMARY CLINICAL RECORDS. [employer] [facility]. provides no warranty or guarantee of the accuracy or completeness of information in this document.
[2024-06-29 09:02] LABS: Basophils Percent Auto 0.3 % (0.2-2.0); Eosinophils Absolute Auto 0.1 10^3/uL (0.0-0.7); Eosinophils Percent Auto 2.4 % (0.9-7.0); Hematocrit 32.6 % (36.0-48.0); Hemoglobin 10.8 g/dL (12.0-16.0); Immature Granulocytes Abs Auto 0.01 10^3/uL (0.00-0.03); Immature Granulocytes Pct Auto 0.2 % (0.0-0.5); Lymphocytes Absolute Auto 1.4 10^3/uL (1.2-3.8); Lymphocytes Percent Auto 23.3 % (20.5-60.0); Mean Corpuscular HGB Conc 33.1 g/dL (29.9-35.2); Mean Corpuscular Hemoglobin 30.2 pg (26.7-34.0); Mean Corpuscular Volume 91.1 fL (81.0-99.0); Mean Platelet Volume 9.3 fL (9.5-13.5); Monocytes Absolute Auto 0.3 10^3/uL (0.3-0.8); Monocytes Percent Auto 5.9 % (1.7-12.0); Neutrophils Absolute Auto 3.9 10^3/uL (1.4-6.5); Neutrophils Percent Auto 67.9 % (43.0-75.0); Platelet Count 263 10^3/uL (150-450); Red Blood Count 3.58 10^6/uL (4.20-5.40); Red Cell Distribution Width 13.1 % (11.0-15.0); White Blood Count 5.8 10^3/uL (4.0-11.0)
--- NOTE | 2024-06-29 09:02 | MM_ITS ---
Patient Name: JIM HALLMAN MR#: [id number] : 1950 Exam Date: 06/29/2024 Ordering Doctor: DR Loco Denis D.O. RADIOLOGY REPORT PROCEDURE: MM TOMOSYNTHESIS SCREENING BI COMPARISON: US BREAST LT LIMITED, 07/15/2023. MM DIAGNOSTIC MAMMO UNILAT LT, 07/15/2023. MM TOMOSYNTHESIS SCREENING BI, 06/26/2023. MG MAMM SCREEN 3D JOSEC CAD, 06/25/2022. MG MAMM SCREEN 3D JOSE C CAD, 06/23/2021. INDICATIONS: Screening Calculator Name NCI Breast Cancer Risk Assessment Tool 5 Year Breast Cancer Risk 2.90% Lifetime Breast Cancer Risk 7.40% Personal Breast Cancer No Personal Ovarian Cancer No Treatments None Family Cancers Aunt-maternal with breast cancer at age ~40. LOCATION: [facility] BREAST COMPOSITION: There are scattered areas of fibroglandular density. FINDINGS: DIAGNOSTIC CATEGORY 2--BENIGN FINDING: RIGHT BREAST: No significant suspicious finding. Scattered benign-appearing calcifications are present. No significant change has occurred. LEFT BREAST: No significant suspicious finding. Scattered benign-appearing calcifications are present. Stable subcutaneous nodule anterior lower-inner quadrant. No significant change has occurred. RECOMMENDATIONS: ROUTINE MAMMOGRAM AND CLINICAL EVALUATION IN 12 MONTHS. PLEASE NOTE: A NORMAL MAMMOGRAM DOES NOT EXCLUDE THE POSSIBILITY OF BREAST CANCER. A CLINICALLY SUSPICIOUS PALPABLE LUMP SHOULD BE BIOPSIED. Dictated by: Rafi Campbell M.D. on 06/30/2024 at 14:01 Approved by: Rafi Campbell M.D. on 06/30/2024 at 14:06
[2024-06-29 09:14] LABS: Estimated Average Glucose 157 mg/dL; Glycohemoglobin A1C 7.1 % (4.5-6.2)
[2024-06-29 09:37] LABS: Microalbumin Urine Random <1.3 mg/dL (<=30.0)
[2024-06-29 09:38] LABS: Alanine Aminotransferase 26 U/L (14-59); Albumin Level 3.5 g/dL (3.4-5.0); Alkaline Phosphatase 55 U/L (46-116); Anion Gap 15.7; Aspartate Amino Transferase 13 U/L (15-37); BUN Creatinine Ratio 16.8; Bilirubin Total 0.7 mg/dL (0.2-1.0); Calcium 9.6 mg/dL (8.5-10.1); Carbon Dioxide 26.6 mmol/L (21.0-32.0); Chloride 102 mmol/L (98-107); Chol HDL Ratio 2.8; Cholesterol 132 mg/dL (<=200); Estimated GFR (African America 54 (>=60 mL/min/1.73m^2); Estimated GFR (Non-African Ame 45 (>=60 mL/min/1.73m^2); Globulin 3.4 g/dL; Glucose 126 mg/dL (74-106); HDL Cholesterol 47 mg/dL (40-60); LDL Cholesterol Calculated 65.4 mg/dL; Potassium 4.3 mmol/L (3.5-5.1); Sodium 140 mmol/L (136-145); Thyroid Stimulating Hormone 1.238 uIU/mL (0.358-3.740); Total Protein 6.9 g/dL (6.4-8.2); Triglycerides 98 mg/dL (<=150); VLDL CHOLESTEROL 19.6 mg/dL
== END 2024-06-29 08:38 | disposition home or self-care (01) ==
LOC: LAB 08:37
PROVIDERS: PCP Internal Medicine; Visit Provider Internal Medicine
DX: E06.3 Autoimmune thyroiditis (principal); E11.65 Type 2 diabetes mellitus with hyperglycemia; I10 Essential (primary) hypertension; E78.00 Pure hypercholesterolemia, unspecified; Z12.31 Encounter for screening mammogram for malignant neoplasm of breast; Z80.3 Family history of malignant neoplasm of breast
CPT/HCPCS: 36415; 77063; 77067; 80053; 80061; 82043; 83036; 84443; 85025

== ENCOUNTER 2024-07-08 08:01 | Outpatient (OUT) | payer MEDICARE, SELFPAY ==
--- OUTSIDE RECORDS SUMMARY | 2024-07-08 08:16 | XMS_ITS | CCD ---
Author Organization [facility] Care Team Providers Care Mold Maker Apprentice Name Role Phone Loco Denis Unavailable Devon [...] Unavailable BALL, DR SALCEDO Primary Care Unavailable [place], DR SANTINO App[place] Consulting Unavailable BALL, DR SALCEDO Admitting Unavailable BALL, DR SALCEDO Attending Unavailable BALL, DR SALCEDO Consulting Unavailable BALL, DR SALCEDO Primary Care Unavailable BALL, DR SALCEDO Admitting Unavailable BALL, DR SALCEDO Primary Care Unavailable BALL, DR SALCEDO Attending Unavailable BALL, DR SALCEDO Consulting Unavailable BALL, DR SALCEDO Admitting Unavailable BALL, DR SALCDEO Attending Unavailable BALL, DR SALCEDO Consulting Unavailable BALL, DR SALCEDO Primary Care Unavailable ZIEBER, DR SOTO Santana Consulting Unavailable BALL, DR SALCEDO Admitting Unavailable BALL, DR SALCEDO Attending Unavailable BALL, DR SALCEDO Consulting Unavailable BALL, DR SALCEDO Primary Care Unavailable Allergies Allergy Classification Reported Allergen(s) Allergy Type Date of Onset Reaction(s) Facility (5 sources) Penicillin; 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: [penicillin] Drug Allergy Unknown [facility] Repository (20 sources) Substance with sulfonamide structure and antibacterial mechanism of action (substance) Drug allergy Unknown [facility] Other (2 sources) Alfentanil; 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: [Alfenta] Drug Allergy [facility] Repository (2 sources) Midazolam; 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: [Versed] Drug Allergy [facility] Repository (2 sources) Penicillins; 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: [penicillins] Propensity to adverse reactions (disorder) 06-22-20 24 Unknown Reaction [facility] Repository (1 source) Sulfonamides (Antibiotic); 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: [sulfa drugs] Propensity to adverse reactions (disorder) [facility] Repository (1 source) Sulfonamides (Antibiotic) Drug allergy (disorder) [facility] Repository (18 sources) Substance with penicillin structure and antibacterial mechanism of action (substance) Drug allergy Unknown [employer] Other (1 source) Sulfonamides (Antibiotic) Allergy to substance 06-22-20 Unknown Reaction [facility] Medications Current Medications Medication Drug Class(es) Dates [...] sources) H/O: high risk medication; 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: [Other long term care social worker (current) drug therapy] Episodic Other aftercare (1 source) medical terminologist (current) use of aspirin; 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: [REGISTRATION OFFICER CURRENT USE OF ASPIRIN] Onset: 01-01-2023 Episodic Other aftercare (1 source) group home (current) use of oral hypoglycemic drugs; 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: [LONGTERM USE ORAL HYPOGLYCEMIC DX] Onset: 01-01-2023 Episodic Other aftercare (3 sources) Other long term care social worker (current) drug therapy; 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: [OTH LONGTERM CURRENT DRUG THERAPY] Onset: 01-01-2023 Episodic Other [...] Range Facility Outside Colonoscopyon 2022 Outside Colonoscopy [id number]: 127 Normal [facility] Reminderson 12-27-2022 Reminders - From: Bethany Smith LPN To: GSN - Clinical; Sent: 12/27/2022 10:52:47 EDT Show up: 11/26/2032 07:00:00 EDT Subject: colonoscopy recall Due Date/Time: 12/26/2032 07:00:00 EDT Reminder/Recall Patient due for screening colonoscopy 12/26/2032. Normal [facility] POINT OF CARE GLUCOSEon - Glucose [Mass/Vol] 261 mg/dL Critically high 74-106 [facility] Comment on above: Performed By: #### P OCGLUC #### [facility] [address] [place], [place] [id number] Dr. Rusty Armstrong Consent for Procedure/Surger yon 12-06-2022 Consent for Procedure/Surgery [id number]: 127 Normal [facility] Facesheeton 12-06-2022 Facesheet [id number]: 127 Normal [facility] Ambulatory Visit Summaryon 0 12-05-2022 Ambulatory Visit Summary HILDA COOL :1950 Visit Date:12/05/2022 Ambulatory Visit Instructions Your Diagnosis Anemia Your Care Team Attending Physician - BERNARD ZUNGIA, Raheem Santana Primary Care Physician - ADEEL [...] incontinence, female) Type 2 diabetes mellitus Normal [facility] Physician Referralon 023 Physician Referral [id number]: 127 Normal [facility] Physician Referralon 023 Physician Referral [id number]: 127 Normal [facility] FOLATE ([facility])on 3 Folate >20.0 Normal >3.0 [facility] Comment on above: Result Comment: A se rum folate concentration of less than 3.1 ng/mL is considered to represent clinical deficiency. Performed By: #### F ETIBC, FERR, B12FOL #### [facility] [address] [address] [address] Rusty Armstrong CBC AUTO DIFFon 11-20-2022 BASO # 0.0 103/ul Normal 0.0-0.1 [facility] Comment on above: Performed By: #### F ETIBC, FERR, B12FOL #### [facility] [address] [id number] [address] Rusty Armstrong Basophils/100 WBC (Bld) 0.7 % Normal 0.2-2.0 [facility] Comment on above: Performed By: #### F ETIBC, FERR, B12FOL #### [facility] [address] [place] [address] Dr. Rusty Armstrong EO # 0.2 103/ul Normal 0.0-0.7 [facility] Comment on above: Performed By: #### F ETIBC, FERR, B12FOL #### [facility] [address] [place] [address] Dr. Rusty Armstrong Eosinophils/100 WBC (Bld) 3.1 % Normal 0.9-7.0 [facility] Comment on above: Performed By: #### F ETIBC, FERR, B12FOL #### [facility] [address] [place] [address] Dr. Rusty Armstrong Erythrocyte distribution width (RBC) [Ratio] 12.6 % Normal 11.0-15.0 [facility] Comment on above: Performed By: #### F ETIBC, FERR, B12FOL #### [facility] [address] [place] [address] Dr. Rusty Armstrong Hematocrit (Bld) [Volume fraction] 33.2 % Critically low 36.0-48.0 [facility] Comment on above: Performed By: #### F ETIBC, FERR, B12FOL #### [facility] [address] [place] [address] Dr. Rusty Armstrong Hemoglobin (Bld) [Mass/Vol] 11.5 g/dL Critically low 12.0-16.0 [facility] Comment on above: Performed By: #### F ETIBC, FERR, B12FOL #### [facility] [address] [place] [address] Dr. Rusty Armstrong IG # 0.01 10e3/ul Normal 0.00-0.03 [facility] Comment on above: Performed By: #### F ETIBC, FERR, B12FOL #### [facility] [address] [place] [address] Dr. Rusty Armstrong IG % 0.2 % Normal 0.0-0.5 [facility] Comment on above: Performed By: #### F ETIBC, FERR, B12FOL #### [facility] [address] [place] [address] Dr. Rusty Armstrong LYMPH # 1.7 103/ul Normal 1.2-3.8 [facility] Comment on above: Performed By: #### F ETIBC, FERR, B12FOL #### [facility] [address] [place] [address] Dr. Rusty Armstrong Lymphocytes/100 WBC (Bld) 31.4 % Normal 20.5-60.0 [facility] Comment on above: Performed By: #### F ETIBC, FERR, B12FOL #### [facility] [address] [place] [address] Dr. Rusty Armstrong MANUAL DIFF REQ NO Normal [facility] Comment on above: Performed By: #### F ETIBC, FERR, B12FOL #### [facility] [address] [place] [address] Dr. Rusty Armstrong MCH (RBC) [Entitic mass] 30.2 pg Normal 26.7-34.0 [facility] Comment on above: Performed By: #### F ETIBC, FERR, B12FOL #### [facility] [address] [place] [address] Dr. Rusty Armstrong MCHC (RBC) [Mass/Vol] 34.6 g/dL Normal 29.9-35.2 [facility] Comment on above: Performed By: #### F ETIBC, FERR, B12FOL #### [facility] [address] [place] [address] Dr. Rusty Armstrong MCV (RBC) [Entitic vol] 87.1 fL Normal 81.0-99.0 [facility] Comment on above: Performed By: #### F ETIBC, FERR, B12FOL #### [facility] [address] [place] [address] Dr. Rusty Armstrong MONO # 0.4 103/ul Normal 0.3-0.8 [facility] Comment on above: Performed By: #### F ETIBC, FERR, B12FOL #### [facility] [address] [place] [address] Dr. Rusty Armstrong Monocytes/100 WBC (Bld) 6.5 % Normal 1.7-12.0 [facility] Comment on above: Performed By: #### F ETIBC, FERR, B12FOL #### [facility] [address] [address] [address] Rusty Armstrong NEUT # 3.2 103/ul Normal 1.4-6.5 [facility] Comment on above: Performed By: #### F ETIBC, FERR, B12FOL #### [facility] [address] [place] [address] Dr. Rusty Armstrong Neutrophils/100 WBC (Bld) 58.1 % Normal 43.0-75.0 [facility] Comment on above: Performed By: #### F ETIBC, FERR, B12FOL #### [facility] [address] [place] [address] Dr. Rusty Armstrong Platelet mean volume (Bld) [Entitic vol] 9.2 fL Critically low 9.5-13.5 [facility] Comment on above: Performed By: #### F ETIBC, FERR, B12FOL #### [facility] [address] [place] [address] Dr. Rusty Armstrong PLT 317 103/ul Normal 150-450 [facility] Comment on above: Performed By: #### F ETIBC, FERR, B12FOL #### [facility] [address] [place] [address] Dr. Rusty Armstrong RBC 3.81 106/ul Critically low 4.20-5.40 [facility] Comment on above: Performed By: #### F ETIBC, FERR, B12FOL #### [facility] [address] [place] [address] Dr. Rusty Armstrong WBC 5.6 103/ul Normal 4.0-11.0 [facility] Comment on above: Performed By: #### F ETIBC, FERR, B12FOL #### [facility] [address] [place] [address] Dr. Rusty Armstrong FERRITINon 11-20-2022 Ferritin [Mass/Vol] 264.0 ng/mL Critically high 8.0-252.0 [facility] Comment on above: Performed By: #### V ITB12, FERR, FETIBC #### [facility] [address] [address] [address] Rusty Armstrong GLYCOHEMOGLOBIN A1Con 2022 ADA RECOMMENDATION SEE BELOW Normal [facility] Comment on above: Result Comment: ADA RECOMMENDED LIMIT 4.0 - 6.0 ADA THERAPEUTIC TARGET < 7.0 ACTION SUGGESTED > 7.0 Performed By: #### F ETIBC, FERR, B12FOL #### [facility] [address] [address] [address] Rusty Armstrong Glucose [Mass/Vol] 174 mg/dL Normal [facility] Comment on above: Performed By: #### F ETIBC, FERR, B12FOL #### [facility] [address] [address] [address] Rusty Armstrong HbA1c (Bld) [Mass fraction] 7.7 % Critically high 4.5-6.2 [facility] Comment on above: Performed By: #### F ETIBC, FERR, B12FOL #### [facility] [address] [address] [address] Rusty Armstrong IRON AND TIBCon 11-20-2022 % SATURATION 22.6 % Normal [facility] Comment on above: Performed By: #### V ITB12, FERR, FETIBC #### [facility] [address] [address] [address] Rusty Armstrong Iron [Mass/Vol] 76.0 ug/dL Normal 50.0-170.0 [facility] Comment on above: Performed By: #### V ITB12, FERR, FETIBC #### [facility] [address] [address] [address] Rusty Armstrong TIBC DIRECT 336.0 ug/dL Normal 250.0-450.0 [facility] Comment on above: Performed By: #### V ITB12, FERR, FETIBC #### [facility] [address] [address] [address] Rusty Armstrong TSHon 11-20-2022 TSH 0.049 uIU/mL Critically low 0.358-3.740 [facility] Comment on above: Performed By: #### T SH #### [facility] [address] [place] [address] Dr. Rusty Armstrong VITAMIN B12on 11-20-2022 Cobalamin (Vitamin B12) [Mass/Vol] 372.0 pg/mL Normal 193.0-986.0 [facility] Comment on above: Performed By: #### V ITB12, FERR, FETIBC #### [facility] [address] [place] [address] Dr. Rusty Armstrong XR LSPINE W_OBLS AND [...] SOTO SCHREIBER Date: 2022-11-20 15:34 Normal [facility] CBC AUTO DIFFon 08-31-2022 BASO # 0.0 103/ul Normal 0.0-0.1 [facility] Comment on above: Performed By: #### F ETIBC, FERR, B12FOL #### [facility] [address] [place] [address] Dr. Rusty Armstrong Basophils/100 WBC (Bld) 0.3 % Normal 0.2-2.0 [facility] Comment on above: Performed By: #### F ETIBC, FERR, B12FOL #### [facility] [address] [place] [address] Dr. Rusty Armstrong EO # 0.1 103/ul Normal 0.0-0.7 [facility] Comment on above: Performed By: #### F ETIBC, FERR, B12FOL #### [facility] [address] [place] [address] Dr. Rusty Armstrong Eosinophils/100 WBC (Bld) 1.6 % Normal 0.9-7.0 [facility] Comment on above: Performed By: #### F ETIBC, FERR, B12FOL #### [facility] [address] [place] [address] Dr. Rusty Armstrong Erythrocyte distribution width (RBC) [Ratio] 12.7 % Normal 11.0-15.0 [facility] Comment on above: Performed By: #### F ETIBC, FERR, B12FOL #### [facility] [address] [place] [address] Dr. Rusty Armstrong Hematocrit (Bld) [Volume fraction] 33.5 % Critically low 36.0-48.0 [facility] Comment on above: Performed By: #### F ETIBC, FERR, B12FOL #### [facility] [address] [place] [address] Dr. Rusty Armstrong Hemoglobin (Bld) [Mass/Vol] 12.2 g/dL Normal 12.0-16.0 [facility] Comment on above: Performed By: #### F ETIBC, FERR, B12FOL #### [facility] [address] [place] [address] Dr. Rusty Armstrong IG # 0.01 10e3/ul Normal 0.00-0.03 [facility] Comment on above: Performed By: #### F ETIBC, FERR, B12FOL #### [facility] [address] [place] [address] Dr. Rusty Armstrong IG % 0.1 % Normal 0.0-0.5 [facility] Comment on above: Performed By: #### F ETIBC, FERR, B12FOL #### [facility] [address] [place] [address] Dr. Rusty Armstrong LYMPH # 1.7 103/ul Normal 1.2-3.8 [facility] Comment on above: Performed By: #### F ETIBC, FERR, B12FOL #### [facility] [address] [place] [address] Dr. Rusty Armstrong Lymphocytes/100 WBC (Bld) 24.6 % Normal 20.5-60.0 [facility] Comment on above: Performed By: #### F ETIBC, FERR, B12FOL #### [facility] [address] [place] [address] Dr. Rusty Armstrong MANUAL DIFF REQ NO Normal [facility] Comment on above: Performed By: #### F ETIBC, FERR, B12FOL #### [facility] [address] [place] [address] Dr. Rusty Armstrong MCH (RBC) [Entitic mass] 29.9 pg Normal 26.7-34.0 [facility] Comment on above: Performed By: #### F ETIBC, FERR, B12FOL #### [facility] [address] [place] [address] Dr. Rusty Armstrong MCHC (RBC) [Mass/Vol] 36.4 g/dL Critically high 29.9-35.2 [facility] Comment on above: Performed By: #### F ETIBC, FERR, B12FOL #### [facility] [address] [place] [address] Dr. Rusty Armstrong MCV (RBC) [Entitic vol] 82.1 fL Normal 81.0-99.0 [facility] Comment on above: Performed By: #### F ETIBC, FERR, B12FOL #### [facility] [address] [place] [address] Dr. Rusty Armstrong MONO # 0.4 103/ul Normal 0.3-0.8 [facility] Comment on above: Performed By: #### F ETIBC, FERR, B12FOL #### [facility] [address] [place] [address] Dr. Rusty Arsmtrong Monocytes/100 WBC (Bld) 5.2 % Normal 1.7-12.0 [facility] Comment on above: Performed By: #### F ETIBC, FERR, B12FOL #### [facility] [address] [place] [address] Dr. Rusty Armstrong NEUT # 4.6 103/ul Normal 1.4-6.5 [facility] Comment on above: Performed By: #### F ETIBC, FERR, B12FOL #### [facility] [address] [place] [address] Dr. Rusty Armstrong Neutrophils/100 WBC (Bld) 68.2 % Normal 43.0-75.0 [facility] Comment on above: Performed By: #### F ETIBC, FERR, B12FOL #### [facility] [address] [place] [address] Dr. Rusty Armstrong Platelet mean volume (Bld) [Entitic vol] 9.4 fL Critically low 9.5-13.5 [facility] Comment on above: Performed By: #### F ETIBC, FERR, B12FOL #### [facility] [address] [place] [address] Dr. Rusty Armstrong PLT 254 103/ul Normal 150-450 [facility] Comment on above: Performed By: #### F ETIBC, FERR, B12FOL #### [facility] [address] [place] [address] Dr. Rusty Armstrong RBC 4.08 106/ul Critically low 4.20-5.40 [facility] Comment on above: Performed By: #### F ETIBC, FERR, B12FOL #### [facility] [address] [place] [address] Dr. Rusty Armstrong WBC 6.7 103/ul Normal 4.0-11.0 [facility] Comment on above: Performed By: #### F ETIBC, FERR, B12FOL #### [facility] [address] [place] [address] Dr. Rusty Armstrong FERRITINon 08-31-2022 Ferritin [Mass/Vol] 161.0 ng/mL Normal 8.0-252.0 [facility] Comment on above: Performed By: #### F ETIBC, FERR, B12FOL #### [facility] [address] [place] [address] Dr. Rusty Armstrong IRON AND TIBCon 08-31-2022 % SATURATION 20.3 % Normal [facility] Comment on above: Performed By: #### F ETIBC, FERR, B12FOL #### [facility] [address] [place] [address] Dr. Rusty Armstrong Iron [Mass/Vol] 72.0 ug/dL Normal 50.0-170.0 [facility] Comment on above: Performed By: #### F ETIBC, FERR, B12FOL #### [facility] [address] [place] [address] Dr. Rusty Armstrong TIBC DIRECT 355.0 ug/dL Normal 250.0-450.0 [facility] Comment on above: Performed By: #### F ETIBC, FERR, B12FOL #### [facility] [address] [place] [address] Dr. Rusty Armstrong TSHon 08-31-2022 TSH 0.055 uIU/mL Critically low 0.358-3.740 [facility] Comment on above: Performed By: #### T SH #### [facility] [address] [place] [address] Dr. Rusty Armstrong VIT B12 AND FOLATEon 023 Cobalamin (Vitamin B12) [Mass/Vol] 413.0 pg/mL Normal 193.0-986.0 [facility] Comment on above: Performed By: #### F ETIBC, FERR, B12FOL #### [facility] [address] [place] [address] Dr. Rusty Armstrong FOLATE 20.10 ng/mL Normal 8.60-58.90 [facility] Comment on above: Performed By: #### F ETIBC, FERR, B12FOL #### [facility] [address] [place] [address] Dr. Rusty Armstrong MG MAMM SCREEN 3D JOSE C CADon 06-25-2022 MG MAMM SCREEN 3D JOSE C CAD Patient: HILDA COOL Exam Date: 06/25/2022 : 1950 Gender:F Ordering : DR LOCO DENIS D.O. Admission #: [id number] Family : Order #: [id number] CLICK HERE TO VIEW EXAM RADIOLOGY REPORT [...] breast cancer at age 41. LOCATION: [facility] BREAST COMPOSITION: Scattered areas fibroglandular density. FINDINGS: [...] MD on 06/25/2022 at 12:50 Normal [facility] CBC AUTO DIFFon 06-11-2022 BASO # 0.0 103/ul Normal 0.0-0.1 [facility] Comment on above: Performed By: #### F ETIBC, FERR, B12FOL #### [facility] [address] [address] [address] Rusty Armstrong Basophils/100 WBC (Bld) 0.3 % Normal 0.2-2.0 [facility] Comment on above: Performed By: #### F ETIBC, FERR, B12FOL #### [facility] [address] [address] [address] Rusty Armstrong EO # 0.1 103/ul Normal 0.0-0.7 [facility] Comment on above: Performed By: #### F ETIBC, FERR, B12FOL #### [facility] [address] [address] [address] Rusty Armstrong Eosinophils/100 WBC (Bld) 1.6 % Normal 0.9-7.0 [facility] Comment on above: Performed By: #### F ETIBC, FERR, B12FOL #### [facility] [address] [address] [address] Rusty Armstrong Erythrocyte distribution width (RBC) [Ratio] 12.8 % Normal 11.0-15.0 [facility] Comment on above: Performed By: #### F ETIBC, FERR, B12FOL #### [facility] [address] [place] [address] Dr. Rusty Armstrong Hematocrit (Bld) [Volume fraction] 33.5 % Critically low 36.0-48.0 [facility] Comment on above: Performed By: #### F ETIBC, FERR, B12FOL #### [facility] [address] [place] [address] Dr. Rusty Armstrong Hemoglobin (Bld) [Mass/Vol] 11.6 g/dL Critically low 12.0-16.0 [facility] Comment on above: Performed By: #### F ETIBC, FERR, B12FOL #### [facility] [address] [place] [address] Dr. Rusty Armstrong IG # 0.02 10e3/ul Normal 0.00-0.03 [facility] Comment on above: Performed By: #### F ETIBC, FERR, B12FOL #### [facility] [address] [place] [address] Dr. Rusty Armstrong IG % 0.3 % Normal 0.0-0.5 [facility] Comment on above: Performed By: #### F ETIBC, FERR, B12FOL #### [facility] [address] [place] [address] Dr. Rusty Armstrong LYMPH # 1.8 103/ul Normal 1.2-3.8 [facility] Comment on above: Performed By: #### F ETIBC, FERR, B12FOL #### [facility] [address] [place] [address] Dr. Rusty Armstrong Lymphocytes/100 WBC (Bld) 25.6 % Normal 20.5-60.0 [facility] Comment on above: Performed By: #### F ETIBC, FERR, B12FOL #### [facility] [address] [place] [address] Dr. Rusty Armstrong MANUAL DIFF REQ NO Normal [facility] Comment on above: Performed By: #### F ETIBC, FERR, B12FOL #### [facility] [address] [place] [address] Dr. Rusty Armstrong MCH (RBC) [Entitic mass] 29.9 pg Normal 26.7-34.0 [facility] Comment on above: Performed By: #### F ETIBC, FERR, B12FOL #### [facility] [address] [place] [address] Dr. Rusty Armstrong MCHC (RBC) [Mass/Vol] 34.6 g/dL Normal 29.9-35.2 [facility] Comment on above: Performed By: #### F ETIBC, FERR, B12FOL #### [facility] [address] [place] [address] Dr. Rusty Armstrong MCV (RBC) [Entitic vol] 86.3 fL Normal 81.0-99.0 [facility] Comment on above: Performed By: #### F ETIBC, FERR, B12FOL #### [facility] [address] [place] [address] Dr. Rusty Armstrong MONO # 0.4 103/ul Normal 0.3-0.8 [facility] [facility] Comment on above: Performed By: #### F ETIBC, FERR, B12FOL #### [facility] [address] [place] [address] Dr. Rusty Armstrong Monocytes/100 WBC (Bld) 5.9 % Normal 1.7-12.0 [facility] Comment on above: Performed By: #### F ETIBC, FERR, B12FOL #### [facility] [address] [place] [address] Dr. Rusty Armstrong NEUT # 4.6 103/ul Normal 1.4-6.5 [facility] Comment on above: Performed By: #### F ETIBC, FERR, B12FOL #### [facility] [address] [place] [address] Dr. Rusty Armstrong Neutrophils/100 WBC (Bld) 66.3 % Normal 43.0-75.0 [facility] Comment on above: Performed By: #### F ETIBC, FERR, B12FOL #### [facility] [address] [address] [address] Rusty Armstrong Platelet mean volume (Bld) [Entitic vol] 8.9 fL Critically low 9.5-13.5 [facility] Comment on above: Performed By: #### F ETIBC, FERR, B12FOL #### [facility] [address] [address] [address] Rusty Armstrong PLT 242 103/ul Normal 150-450 [facility] Comment on above: Performed By: #### F ETIBC, FERR, B12FOL #### [facility] [address] [address] [address] Rusty Armstrong RBC 3.88 106/ul Critically low 4.20-5.40 [facility] Comment on above: Performed By: #### F ETIBC, FERR, B12FOL #### [facility] [address] [place] [address] Dr. Rusty Armstrong WBC 7.0 103/ul Normal 4.0-11.0 [facility] Comment on above: Performed By: #### F ETIBC, FERR, B12FOL #### [facility] [address] [address] [address] Rusty Armstrong DIRECT LDLon 06-11-2022 Cholesterol in LDL [Mass/Vol] 111 mg/dL Normal [facility] Comment on above: Performed By: #### F ETIBC, FERR, B12FOL #### [facility] [address] [place] [address] Dr. Rusty Armstrong DLDL NORMAL SEE BELOW Normal [facility] Comment on above: Result Comment: <100 mg/dl OPTIMAL 100 - 129 mg/dl NEAR OR ABOVE OPTIMAL 130 - 159 mg/dl BORDERLINE HIGH 160 - 189 mg/dl HIGH >190 mg/dl VERY HIGH Performed By: #### F ETIBC, FERR, B12FOL #### [facility] [address] [place] [address] Dr. Rusty Armstrong LIPID PROFILEon 06-11-2022 CHOL-HDL RATIO NORM SEE BELOW Normal [facility] Comment on above: Result Comment: 3.3 - 4.4 LOW RISK 4.4 - 7.1 AVERAGE RISK 7.1 - 11.0 MODERATE RISK >11.0 HIGH RISK Performed By: #### A LT, LIPID, TSH, BMP, DLDL #### [facility] [address] [address] [address] Rusty Armstrong Cholesterol [Mass/Vol] 215 mg/dL Critically high <=200 [facility] Comment on above: Performed By: #### A LT, LIPID, TSH, BMP, DLDL #### [facility] [address] [address] [address] Rusty Armstrong Cholesterol in HDL [Mass/Vol] 38 mg/dL Critically low 40-60 [facility] Comment on above: Performed By: #### A LT, LIPID, TSH, BMP, DLDL #### [facility] [address] [place] [address] Dr. Rusty Armstrong Cholesterol.total/Ch olesterol in HDL [Mass ratio] 5.7 {ratio} Normal [facility] Comment on above: Performed By: #### A LT, LIPID, TSH, BMP, DLDL #### [facility] [address] [place] [address] Dr. Rusty Armstrong HDL NORMAL > or = 60 mg/dl - LO W CARDIOVASCULAR RISK <40 mg/dl - HIGH CARDIOVASCULAR RISK Normal [facility] Comment on above: Performed By: #### A LT, LIPID, TSH, BMP, DLDL #### [facility] [address] [address] [address] Rusty Armstrong Triglyceride [Mass/Vol] 401 mg/dL Critically high <=150 [facility] Comment on above: Performed By: #### A LT, LIPID, TSH, BMP, DLDL #### [facility] [address] [address] [address] Rusty Armstrong VLDL CALC 80.2 mg/dL Normal [facility] Comment on above: Performed By: #### A LT, LIPID, TSH, BMP, DLDL #### [facility] [address] [place] [address] Dr. Rusty Armstrong MICROALBUMIN, RAND URon 11-0 mALB 3.0 mg/L Normal <=30.0 [facility] Comment on above: Performed By: #### F ETIBC, FERR, B12FOL #### [facility] [address] [place] [address] Dr. Rusty Armstrong PROF CHEM 8 (BAS METB)on Anion gap [Moles/Vol] 9.6 mmol/L Normal [facility] Comment on above: Performed By: #### F ETIBC, FERR, B12FOL #### [facility] [address] [place] [address] Dr. Rusty Armstrong Calcium [Mass/Vol] 9.2 mg/dL Normal 8.5-10.1 [facility] Comment on above: Performed By: #### F ETIBC, FERR, B12FOL #### [facility] [address] [place] [address] Dr. Rusty Armstrong Chloride [Moles/Vol] 103 mmol/L Normal 98-107 [facility] Comment on above: Performed By: #### F ETIBC, FERR, B12FOL #### [facility] [address] [place] [address] Dr. Rusty Armstrong CO2 [Moles/Vol] 27.8 mmol/L Normal 21.0-32.[address] [facility] Comment on above: Performed By: #### F ETIBC, FERR, B12FOL #### [facility] [address] [place] [address] Dr. Rusty Armstrong Creatinine [Mass/Vol] 0.83 mg/dL Normal 0.55-1.02 [facility] Comment on above: Performed By: #### F ETIBC, FERR, B12FOL #### [facility] [address] [place] [address] Dr. Rusty Armstrong EGFR-AF EAST [place] >60 Normal >=[address] [facility] Comment on above: Performed By: #### F ETIBC, FERR, B12FOL #### [facility] [address] [place] [address] Dr. Rusty Armstrong EGFR-NON AF [place] >60 Normal >=60 [facility] Comment on above: Performed By: #### F ETIBC, FERR, B12FOL #### [facility] [address] [address] [address] Rusty Armstrong Glucose [Mass/Vol] 221 mg/dL Critically high 74-106 [facility] Comment on above: Performed By: #### F ETIBC, FERR, B12FOL #### [facility] [address] [place] [address] Dr. Rusty Armstrong Potassium [Moles/Vol] 4.4 mmol/L Normal 3.5-5.1 [facility] Comment on above: Performed By: #### F ETIBC, FERR, B12FOL #### [facility] [address] [place] [address] Dr. Rusty Armstrong Sodium [Moles/Vol] 136 mmol/L Normal 136-145 [facility] Comment on above: Performed By: #### F ETIBC, FERR, B12FOL #### [facility] [address] [place] [address] Dr. Rusty Armstrong Urea nitrogen [Mass/Vol] 21.0 mg/dL Critically high 7.0-18.0 [facility] Comment on above: Performed By: #### F ETIBC, FERR, B12FOL #### [facility] [address] [place] [address] Dr. Rusty Armstrong Urea nitrogen/Creatinine [Mass ratio] 25.3 mg/mg Normal [facility] Comment on above: Performed By: #### F ETIBC, FERR, B12FOL #### [facility] [address] [place] [address] Dr. Rusty Armstrong SGPTon 06-11-2022 ALT [Catalytic activity/Vol] 18 U/L Normal 14-59 [facility] Comment on above: Performed By: #### F ETIBC, FERR, B12FOL #### [facility] [address] [place] [address] Dr. Rusty Armstrong TSHon 06-11-2022 TSH 0.043 uIU/mL Critically low 0.358-3.740 [facility] Comment on above: Performed By: #### F ETIBC, FERR, B12FOL #### [facility] [address] [address] [address] Rusty Armstrong GLYCOHEMOGLOBIN A1Con 2021 ADA RECOMMENDATION SEE BELOW Normal [facility] Comment on above: Result Comment: ADA RECOMMENDED LIMIT 4.0 - 6.0 ADA THERAPEUTIC TARGET < 7.0 ACTION SUGGESTED > 7.0 Performed By: #### F ETIBC, FERR, B12FOL #### [facility] [address] [address] [address] Rusty Armstrong Glucose [Mass/Vol] 157 mg/dL Normal [facility] Comment on above: Performed By: #### F ETIBC, FERR, B12FOL #### [facility] [address] [address] [address] Rusty Armstrong HbA1c (Bld) [Mass fraction] 7.1 % Critically high 4.5-6.2 [facility] Comment on above: Performed By: #### F ETIBC, FERR, B12FOL #### [facility] [address] [address] [address] Rusty Armstrong Vital Signs Date Time Vital Sign Value Performing Clinician Facility 06-22-2024 11:28-0500 Body height 162.56 cm [facility] 06-22-2024 11:28-0500 Body mass index (BMI) [Ratio] 33.9 kg/m2 [facility] 06-22-2024 11:28-0500 Body weight 89.58 kg [facility] 06-22-2024 11:28-0500 Diastolic blood pressure 72 mm[Hg] [facility] 06-22-2024 11:28-0500 Heart rate 62 /min [facility] 06-22-2024 11:28-0500 Respiratory rate 12 /min [facility] 06-22-2024 11:28-0500 Systolic blood pressure 134 mm[Hg] [facility] 07-19-2023 14:45-0500 Body height 162.56 cm Loco Ball Other [facility] Other 07-19-2023 14:45-0500 Body mass index (BMI) [Ratio] 32.34 kg/m2 Loco Ball Other [facility] [facility] Other 07-19-2023 14:45-0500 Body weight 85.46 kg Loco Ball Other [facility] Other 07-19-2023 14:45-0500 Diastolic blood pressure 67 mm[Hg] Loco Ball Other [facility] Other 07-19-2023 14:45-0500 Respiratory rate 16 /min Loco Ball Other [facility] Other 07-19-2023 14:45-0500 SaO2% (BldA) [Mass fraction] 96 % Loco Ball Other [facility] Other 07-19-2023 14:45-0500 Systolic blood pressure 121 mm[Hg] Loco Ball Other [facility] Other 06-17-2023 14:30-0500 Body height 162.56 cm Loco Ball Other [facility] Other 06-17-2023 14:30-0500 Body mass index (BMI) [Ratio] 32.58 kg/m2 Loco Ball Other [facility] Other 06-17-2023 14:30-0500 Body weight 86.09 kg Loco Ball Other [facility] Other 06-17-2023 14:30-0500 Diastolic blood pressure 75 mm[Hg] Loco Ball Other [facility] Other 06-17-2023 14:30-0500 Respiratory rate 12 /min Loco Ball Other [facility] [facility] Other 06-17-2023 14:30-0500 Systolic blood pressure 119 mm[Hg] Loco Ball Other [facility] Other 03-21-2023 11:15-0400 Body height 162.56 cm Loco Ball Other [facility] Other 03-21-2023 11:15-0400 Body mass index (BMI) [Ratio] 31.68 kg/m2 Loco Ball Other [facility] Other 03-21-2023 11:15-0400 Body weight 83.73 kg Loco Ball Other [facility] Other 03-21-2023 11:15-0400 Diastolic blood pressure 70 mm[Hg] Loco Ball Other [facility] Other 03-21-2023 11:15-0400 Respiratory rate 12 /min Loco Ball Other [facility] [facility] Other 03-21-2023 11:15-0400 Systolic blood pressure 112 mm[Hg] Loco Ball Other [employer] Other Encounters Encounter Date Encounter Type Care Provider Facility Start: 06-22-2024 End: 06-22-2024 ambulatory [facility] Work Phone: Start: 06-22-2024 End: 06-22-2024 Patient encounter procedure [facility] Work Phone: Start: 06-20-2024 Patient encounter procedure [facility] Start: 06-17-2024 Non-patient / Non-visit [facility] Work Phone: Start: 09-02-2023 End: 09-02-2023 ambulatory Loco Denis Other [employer] [facility] Other Start: 09-02-2023 Telephone encounter Loco Ball [facility] Start: 08-21-2023 End: 08-21-2023 ambulatory Loco Ball Other [facility] Other Start: 08-21-2023 Telephone encounter Loco Ball [facility] Start: 08-07-2023 End: 08-07-2023 ambulatory Loco Ball Other [facility] Other Start: 08-07-2023 Telephone encounter Loco Ball [facility] Start: 07-24-2023 End: 07-24-2023 ambulatory Loco Ball Other [facility] Other Start: 07-24-2023 Telephone encounter Loco Ball [facility] Start: 07-23-2023 End: 07-23-2023 ambulatory Loco Ball Other [facility] Other Start: 07-23-2023 Telephone encounter Loco Ball [facility] Start: 07-19-2023 End: 07-19-2023 ambulatory Loco Ball Other [facility] [facility] Other Start: 07-19-2023 Office outpatient vi sit 15 minutes Loco Ball [facility] Start: 07-19-2023 Telephone encounter Loco Ball [facility] Start: 07-17-2023 End: 07-17-2023 ambulatory Loco Ball Other [facility] Other Start: 07-17-2023 Telephone encounter Loco Ball [facility] Start: 07-02-2023 End: 07-02-2023 ambulatory Loco Ball Other [facility] [facility] Other Start: 07-02-2023 Telephone encounter Loco Ball [facility] Start: 07-01-2023 End: 07-01-2023 ambulatory Loco Ball Other [facility] [facility] Other Start: 07-01-2023 Telephone encounter Loco Ball [facility] Start: 06-24-2023 End: 06-24-2023 ambulatory Loco Denis Other [facility] [facility] Other Start: 06-24-2023 Telephone encounter Loco Denis [facility] Start: 06-18-2023 End: 06-18-2023 ambulatory Loco Denis Other [facility] Other Start: 06-18-2023 Telephone encounter Loco Denis [facility] Start: 06-17-2023 End: 06-17-2023 ambulatory Loco Denis Other [facility] [facility] Other Start: 06-17-2023 Patient encounter procedure Loco Denis [facility] Start: 06-12-2023 End: 06-12-2023 ambulatory Loco Denis Other [facility] [facility] Other Start: 06-12-2023 Telephone encounter Loco PUENTES [facility] Start: 03-21-2023 End: 03-21-2023 ambulatory Loco Denis Other [facility] [facility] Other Start: 03-21-2023 Office outpatient vi sit 15 minutes Loco Denis [facility] Start: 03-06-2023 End: 03-06-2023 ambulatory Loco Denis Other [facility] [facility] Other Start: 03-06-2023 Telephone encounter Loco Denis [facility] Start: 12-26-2022 End: 12-27-2022 ambulatory Raheem SANTANA Facility:CD:[id number] Start: 12-05-2022 End: 12-06-2022 ambulatory Raheem SANTANA Facility: [facility] Start: 11-28-2022 ambulatory Devon DEGROOT Facility : [facility] Start: 11-23-2022 ambulatory Raheem SANTANA Facility : [place] Start: 11-22-2022 End: 11-22-2022 ambulatory Loco Denis Other [facility] Other Start: 11-22-2022 Telephone encounter Loco Denis [facility] Start: 11-21-2022 Telephone encounter Loco PUENTES [facility] Start: 11-21-2022 End: 11-22-[address] LOCO DENIS [facility] Other Start: 11-20-2022 End: 11-21-[address] LOCO DENIS Facility:[facility] Start: 10-22-2022 End: 10-22-2022 ambulatory Loco Denis Other [employer] Other Start: 10-22-2022 Office outpatient vi sit 15 minutes Loco Denis [facility] Start: 08-31-2022 End: 09-01-[address] LOCO DENIS Facility:[facility] Start: 06-25-2022 End: 06-26-[address] LOCO DENIS Facility:[facility] Start: 06-11-2022 End: 06-12-[address] LOCO DENIS Facility:[facility] Start: 04-20-2022 End: 04-21-[address] LOCO DENIS Facility:[facility] Start: 01-22-2022 ambulatory Devon Carter ty:[facility] Plan of Treatment Date Care Activity Detail Author Comprehensive metabo lic 2000 panel - Serum or Plasma [facility] enter MG Breast - bilateral Screening [facility] Microalbumin [Mass/volume] in Urine [facility] Immunizations Immunization Date Immunization Notes Care Provider Deni garza 06-22-2024 influenza, high dose seasonal, preservative-free [facility] 04-11-2023 influenza, high dose seasonal, preservative-free Loco Denis Other [employer] Other 04-11-2023 influenza virus vaccine, unspecified formulation [facility] 06-11-2022 influenza virus vaccine, split virus (incl. purified surface antigen) Loco Denis Other [employer] Other 06-11-2022 influenza virus vaccine, unspecified formulation [facility] 05-03-2021 influenza virus vaccine, split virus (incl. purified surface antigen) Loco Denis Other [facility] [employer] Other 05-03-2021 influenza virus vaccine, unspecified formulation [facility] 09-28-2020 COVID-19 Vaccine Moderna - Documentation Purposes Only Loco Denis Other [facility] 06-06-2020 influenza virus vaccine, split virus (incl. purified surface antigen) Loco Denis Other [facility] [employer] Other 06-06-2020 influenza virus vaccine, unspecified formulation [facility] 06-05-2019 influenza virus vaccine, split virus (incl. purified surface antigen) Loco Denis Other [facility] [employer] Other 06-05-2019 influenza virus vaccine, unspecified formulation [facility] 06-04-2018 influenza virus vaccine, split virus (incl. purified surface antigen) Loco Denis Other [facility] [employer] Other 06-04-2018 influenza virus vaccine, unspecified formulation [facility] 06-04-2018 pneumococcal polysaccharide vaccine, 23 valent Loco Denis Other [facility] 04-23-2017 influenza virus vaccine, split virus (incl. purified surface antigen) Loco Denis Other [facility] [employer] Other 04-23-2017 influenza virus vaccine, unspecified formulation [facility] 11-20-2016 pneumococcal conjuga te vaccine, 13 valent Loco Denis Other [facility] 10-22-2011 diphtheria, tetanus toxoids and acellular pertussis vaccine, unspecified formulation Loco Denis Other [facility] Payers Date Payer Category Payer Private Health Insurance [id number] 1958 Medicare [id number] 2.1 [id number] 1958 Private Health Insurance [id number] 1950 Unknown [id number] 2.16.8 [id number] 1950 Unknown [id number] 2.16.8 [id number] 1950 Unknown [id number] 2.16.8 [id number] 1950 Unknown [id number] 2.16.8 [id number] 1950 Unknown [id number] 2.16.84 [id number] 1950 Unknown [id number] 2.16.84 [id number] 1950 Unknown [id number] 2.16.84 [id number] 1950 Unknown [id number] 2.16.84 [id number] 1950 Unknown [id number] 2.16.84 [id number] 1950 Unknown [id number] 2.16.84 [id number] 1950 Unknown [id number] 2.16.84 [id number] Social History Date Type Detail Facility Sex Assigned At [employer] Other Tobacco smoking stat [facility] Unknown if ever smoked [facility] Work Phone: Start: 06-22-2024 Sex Female (finding) [facility] Start: 1950 Sex Assigned At Female [facility] Medical Equipment Procedure Code Equipment Code Equipment Origin al Text Equipment Identifier Dates OneTouch UltraSo ft Lancets - Blood Sugar Diagnostic (Onetouch Ultra Test) strip Start: 11-28-2023 Lancets (Onetouc h Delica Plus Lancet) [facility] Start: 10-22-2023 Clinical Notes 10-22-2022 to 08-21-2023 Note Date & Type Note Facility 08-21-2023 Evaluation note Encounter Date Diagnosis Assessment Notes Aug, Primary hypertension (ICD-10 - I10) [facility] [employer] Other 01-03-2024 Evaluation note* Encounter Date Diagnosis Assessment Notes Treatment Notes Treatment Clinical Notes Aug, Primary hypertension (ICD-10 - I10) [facility] [facility] Other 12-20-2023 Evaluation note* Encounter Date Diagnosis Assessment Notes Treatment Notes Treatment Clinical Notes Jul, Acute bronchitis due to other specified organisms (ICD-10 - J20.8) [facility] [facility] Other 12-15-2023 Evaluation note* Encounter Date Diagnosis [...] BS may increase while experiencing respiratory illness [employer] Other 11-28-2023 Evaluation note* Encounter Date Diagnosis Assessment Notes Treatment Notes Treatment Clinical Notes Jun, Abnormal mammogram of left breast (ICD-10 - R92.8) [facility] [facility] Other 11-27-2023 Evaluation note* Encounter Date Diagnosis Assessment Notes Treatment Notes Treatment Clinical Notes Jun, Autoimmune thyroiditis (ICD-10 - E06.3) Yearly TSH [employer] Other 11-20-2023 Evaluation note* Encounter Date Diagnosis Assessment Notes Treatment Notes Treatment Clinical Notes Jun, Primary hypertension (ICD-10 - I10) [facility] Other 11-13-2023 Evaluation note* Encounter Date Diagnosis [...] High risk medication use (ICD-10 - Z79.899) [facility] [facility] Other 11-08-2023 Evaluation note* Encounter Date Diagnosis Assessment Notes Treatment Notes Treatment Clinical Notes Jun, Primary hypertension (ICD-10 - I10) [facility] [facility] Other 08-17-2023 Evaluation note* Encounter Date Diagnosis [...] BS 200 Reduce calores/sweets and increase activity [employer] Other 08-02-2023 Evaluation note* Encounter Date Diagnosis Assessment Notes Treatment Notes Treatment Clinical Notes Mar, Type 2 diabetes mellitus with hyperglycemia, without long-term current use of insulin (ICD-10 - E11.65) [facility] Other 05-24-2023 NoteOPERATIVE NOTE OPERATION DATE: 12/26/2022 [...] room in good condition. 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 FINDINGS: BONES:No fracture, acute abnormality, or significant arthropathy. SOFT TISSUES:No visible soft tissue swelling. EFFUSION:None visible. OTHER: Negative. IMPRESSION: 1. No acute bone abnormality or bone lesion. 2. Minimal degenerative joint disease. Electronically authenticated by: SOTO SCHREIBER Date: 2022-11-20 15:27[facility]03-20-2023 Evaluation note* Encounter Date Diagnosis Assessment [...] requires no treatment. Push fluids and rest [employer] Other Evaluation noteNo InformationNort [employer] Other Evaluation note* Diagnosis Onset Date Resolution [...] wit h hyperglycemia acute June 22 10:46am [facility] Work Phone: His[facility] general Narrative - Reported* Type Description Date [...] Colonoscopy 2011 Hospitalization History see surgical history [facility] Other Hisjv[facility] general Narrative - Reported* Type Description Date [...] Colonoscopy 12/2022 Hospitalization History see surgical history [facility] Other History general Narrative - Reported* Type [...] breast 07/2023 Hospitalization History see surgical history [facility] Other Reason for referral (narrative)* Reason Referral for EGD and Colonoscopy Diagnosis 1 Anemia, unspecified type (D64.9) Diagnosis 2 Colon cancer screeni (Z12.11) Referral Organization [facility] Referring Provider First Name Loco Referring Provider Last Name Adeel Referring Provider Specialty Internal Ak dicine Referred Organization [facility] Referred Provider Raheem Santana Referred Address [address] [place], [place],[address] Referred Provider Specialty Surgery Referral Priority Routine [...] CBC, B12, FA, iron, TIBC and ferritin. [employer] Other Summary Purpose Family History No Family [...] FOR VISIT (unrecogniz ed section and content) [phone] cold and wheezi ngXray resultsNo InformationLab ResultsLab Resultsback painrefillWELLNESSCologuardRefillNo InformationNo Informationmedication questionWELLNESSWants XraywheezingNo InformationFNA resultsATBrefillMedication ChangeRefills INFORMATION SOURCE (unrecogn ized section and content) DATE CREATED AUTHOR 01/11/2023 [facility] DATE CREATED AUTHOR AUTHOR'S ORGANIZ ATION 01/11/2023 [facility] Teams (unrecognized sec tion and content) [...] BE BASED ON THE PRIMARY CLINICAL RECORDS. [employer] [facility] provides no warranty or guarantee of the accuracy or completeness of information in this document.
[2024-07-08 08:22] LABS: Reticulocyte Pct Auto 1.63 % (0.60-3.10)
[2024-07-08 08:48] LABS: Percent Iron Saturation 22.7 %
[2024-07-09 04:07] LABS: Vitamin B12 318 pg/mL (232-1245)
== END 2024-07-08 08:02 | disposition home or self-care (01) ==
LOC: LAB 08:03
PROVIDERS: PCP Internal Medicine; Visit Provider Internal Medicine
DX: D64.9 Anemia, unspecified (principal)
CPT/HCPCS: 36415; 82607; 82728; 82746; 83540; 83550; 85045

== ENCOUNTER 2024-10-13 12:18 | Outpatient (OUT) | payer MEDICARE, SELFPAY ==
--- OUTSIDE RECORDS SUMMARY | 2024-10-13 12:24 | XMS_ITS | CCD ---
Author Organization [facility] Care Team Providers Care Supervisor Elementary Education Name Role Phone Loco Denis Unavailable Devon [...] Unavailable BALL, DR SALCEDO Primary Care Unavailable CREOLA, DR SANTINO [employer] Unavailable BALL, DR [...] Penicillin; 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: [penicillin] Drug Allergy Unknown [facility] Repository (20 sources) Substance with sulfonamide structure and antibacterial mechanism of action (substance) Drug allergy Unknown [facility] Other (2 sources) Alfentanil; 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: [Alfenta] Drug Allergy [facility] Repository (2 sources) Midazolam; 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: [Versed] Drug Allergy [facility] Repository (2 sources) Penicillins; 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: [penicillins] Propensity to adverse reactions (disorder) 06-22-20 24 Unknown Reaction [facility] Repository (1 source) Sulfonamides (Antibiotic); 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: [sulfa drugs] Propensity to adverse reactions (disorder) [facility] Repository (1 source) Sulfonamides (Antibiotic) Drug allergy (disorder) [facility] Repository (18 sources) Substance with penicillin structure and antibacterial mechanism of action (substance) Drug allergy Unknown [facility] Other (1 source) Sulfonamides (Antibiotic) Allergy to substance 06-22-20 Unknown Reaction [facility] Medications Current Medications Medication Drug Class(es) [...] 07, 2023 11:09am take 1 tablet by lforian th once daily amLODIPine Besylate 5 MG [...] drug therapy] Episodic Other aftercare (1 source) 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; 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: [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 OF ASPIRIN] Onset: 01-01-2023 Episodic Other aftercare (1 source) skilled nursing (current) use of oral hypoglycemic drugs; 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: [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 USE ORAL HYPOGLYCEMIC DX] Onset: 01-01-2023 Episodic Other aftercare (3 sources) Other [facility]dc (current) drug therapy; 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: [OTH [facility] CURRENT DRUG THERAPY] Onset: 01-01-2023 Episodic Other [...] Range Facility Outside Colonoscopyon 2022 Outside Colonoscopy [id number]: 127 Normal [facility] Reminderson 12-27-2022 Reminders - From: Bethany Smith LPN To: GSN - Clinical; Sent: 12/27/2022 10:52:47 EDT Show up: 11/26/2032 07:00:00 EDT Subject: colonoscopy recall Due Date/Time: 12/26/2032 07:00:00 EDT Reminder/Recall Patient due for screening colonoscopy 12/26/2032. Normal [facility] POINT OF CARE GLUCOSEon - Glucose [Mass/Vol] 261 mg/dL Critically high 74-106 [facility] Comment on above: Performed By: #### P OCGLUC #### [facility] [address] [place], [place] [id number] Dr. Rusty Armstrong Consent for Procedure/Surger yon 12-06-2022 Consent for Procedure/Surgery [id number]: 127 Normal [facility] Facesheeton 12-06-2022 Facesheet [id number]: 127 Normal [facility] Ambulatory Visit Summaryon 0 12-05-2022 Ambulatory Visit [...] incontinence, female) Type 2 diabetes mellitus Normal [facility] Physician Referralon 023 Physician Referral [id number]: 127 Normal [facility] Physician Referralon 023 Physician Referral [id number]: 127 Normal [facility] FOLATE ([facility])on 3 Folate >20.0 Normal >3.0 [facility] Comment on above: Result Comment: A se rum folate concentration of less than 3.1 ng/mL is considered to represent clinical deficiency. Performed By: #### F ETIBC, FERR, B12FOL #### [facility] [address] [address] [address] Rusty Armstrong CBC AUTO DIFFon 11-20-2022 BASO # 0.0 103/ul Normal 0.0-0.1 [facility] Comment on above: Performed By: #### F ETIBC, FERR, B12FOL #### [facility] [address] [id number] [address] Rusty Armstrong Basophils/100 WBC (Bld) 0.7 % Normal 0.2-2.0 [facility] Comment on above: Performed By: #### F ETIBC, FERR, B12FOL #### [facility] [address] [place] [address] Dr. Rusty Armstrong EO # 0.2 103/ul Normal 0.0-0.7 [facility] Comment on above: Performed By: #### F ETIBC, FERR, B12FOL #### [facility] [address] [place] [address] Dr. Rusty Armtsrong Eosinophils/100 WBC (Bld) 3.1 % Normal 0.9-7.0 [facility] Comment on above: Performed By: #### F ETIBC, FERR, B12FOL #### [facility] [address] [place] [address] Dr. Rusty Armstrong Erythrocyte distribution width (RBC) [Ratio] 12.6 % Normal 11.0-15.0 [facility] Comment on above: Performed By: #### F ETIBC, FERR, B12FOL #### [facility] [address] [place] [address] Dr. Rusty Armstrong Hematocrit (Bld) [Volume fraction] 33.2 % Critically low 36.0-48.0 [facility] Comment on above: Performed By: #### F ETIBC, FERR, B12FOL #### [facility] [address] [place] [address] Dr. Rusty Armstrong Hemoglobin (Bld) [Mass/Vol] 11.5 g/dL Critically low 12.0-16.0 [facility] Comment on above: Performed By: #### F ETIBC, FERR, B12FOL #### [facility] [address] [place] [address] Dr. Rusty Armstrong IG # 0.01 10e3/ul Normal 0.00-0.03 [facility] Comment on above: Performed By: #### F ETIBC, FERR, B12FOL #### [facility] [address] [place] [address] Dr. Rusty Armstrong IG % 0.2 % Normal 0.0-0.5 [facility] Comment on above: Performed By: #### F ETIBC, FERR, B12FOL #### [facility] [address] [place] [address] Dr. Rusty Armstrong LYMPH # 1.7 103/ul Normal 1.2-3.8 [facility] Comment on above: Performed By: #### F ETIBC, FERR, B12FOL #### [facility] [address] [place] [address] Dr. Rusty Armstrong Lymphocytes/100 WBC (Bld) 31.4 % Normal 20.5-60.0 [facility] Comment on above: Performed By: #### F ETIBC, FERR, B12FOL #### [facility] [address] [place] [address] Dr. Rusty Armstrong MANUAL DIFF REQ NO Normal [facility] Comment on above: Performed By: #### F ETIBC, FERR, B12FOL #### [facility] [address] [place] [address] Dr. Rusty Armstrong MCH (RBC) [Entitic mass] 30.2 pg Normal 26.7-34.0 [facility] Comment on above: Performed By: #### F ETIBC, FERR, B12FOL #### [facility] [address] [place] [address] Dr. Rusty Armstrong MCHC (RBC) [Mass/Vol] 34.6 g/dL Normal 29.9-35.2 [facility] Comment on above: Performed By: #### F ETIBC, FERR, B12FOL #### [facility] [address] [place] [address] Dr. Rusty Armstrong MCV (RBC) [Entitic vol] 87.1 fL Normal 81.0-99.0 [facility] Comment on above: Performed By: #### F ETIBC, FERR, B12FOL #### [facility] [address] [place] [address] Dr. Rusty Armstrong MONO # 0.4 103/ul Normal 0.3-0.8 [facility] Comment on above: Performed By: #### F ETIBC, FERR, B12FOL #### [facility] [address] [place] [address] Dr. Rusty Armstrong Monocytes/100 WBC (Bld) 6.5 % Normal 1.7-12.0 [facility] Comment on above: Performed By: #### F ETIBC, FERR, B12FOL #### [facility] [address] [address] [address] Rusty Armstrong NEUT # 3.2 103/ul Normal 1.4-6.5 [facility] Comment on above: Performed By: #### F ETIBC, FERR, B12FOL #### [facility] [address] [place] [address] Dr. Rusty Armstrong Neutrophils/100 WBC (Bld) 58.1 % Normal 43.0-75.0 [facility] Comment on above: Performed By: #### F ETIBC, FERR, B12FOL #### [facility] [address] [place] [address] Dr. Rusty Armstrong Platelet mean volume (Bld) [Entitic vol] 9.2 fL Critically low 9.5-13.5 [facility] Comment on above: Performed By: #### F ETIBC, FERR, B12FOL #### [facility] [address] [place] [address] Dr. uRsty Armstrong PLT 317 103/ul Normal 150-450 [facility] Comment on above: Performed By: #### F ETIBC, FERR, B12FOL #### [facility] [address] [place] [address] Dr. Rusty Armstrong RBC 3.81 106/ul Critically low 4.20-5.40 [facility] Comment on above: Performed By: #### F ETIBC, FERR, B12FOL #### [facility] [address] [place] [address] Dr. Rusty Armstrong WBC 5.6 103/ul Normal 4.0-11.0 [facility] Comment on above: Performed By: #### F ETIBC, FERR, B12FOL #### [facility] [address] [place] [address] Dr. Rusty Armstrong FERRITINon 11-20-2022 Ferritin [Mass/Vol] 264.0 ng/mL Critically high 8.0-252.0 [facility] Comment on above: Performed By: #### V ITB12, FERR, FETIBC #### [facility] [address] [address] [address] Rusty Armstrong GLYCOHEMOGLOBIN A1Con 2022 ADA RECOMMENDATION SEE BELOW Normal [facility] Comment on above: Result Comment: ADA RECOMMENDED LIMIT 4.0 - 6.0 ADA THERAPEUTIC TARGET < 7.0 ACTION SUGGESTED > 7.0 Performed By: #### F ETIBC, FERR, B12FOL #### [facility] [address] [address] [address] Rusty Armstrong Glucose [Mass/Vol] 174 mg/dL Normal [facility] Comment on above: Performed By: #### F ETIBC, FERR, B12FOL #### [facility] [address] [address] [address] Rusty Armstrong HbA1c (Bld) [Mass fraction] 7.7 % Critically high 4.5-6.2 [facility] Comment on above: Performed By: #### F ETIBC, FERR, B12FOL #### [facility] [address] [address] [address] Rusty Armstrong IRON AND TIBCon 11-20-2022 % SATURATION 22.6 % Normal [facility] Comment on above: Performed By: #### V ITB12, FERR, FETIBC #### [facility] [address] [address] [address] Rusty Armstrong Iron [Mass/Vol] 76.0 ug/dL Normal 50.0-170.0 [facility] Comment on above: Performed By: #### V ITB12, FERR, FETIBC #### [facility] [address] [address] [address] Rusty Armstrong TIBC DIRECT 336.0 ug/dL Normal 250.0-450.0 [facility] Comment on above: Performed By: #### V ITB12, FERR, FETIBC #### [facility] [address] [address] [address] Rusty Armstrong TSHon 11-20-2022 TSH 0.049 uIU/mL Critically low 0.358-3.740 [facility] Comment on above: Performed By: #### T SH #### [facility] [address] [place] [address] Dr. Rusty Armstrong VITAMIN B12on 11-20-2022 Cobalamin (Vitamin B12) [Mass/Vol] 372.0 pg/mL Normal 193.0-986.0 [facility] Comment on above: Performed By: #### V ITB12, FERR, FETIBC #### [facility] [address] [place] [address] Dr. Rusty Armstrong XR LSPINE W_OBLS AND [...] SOTO SCHREIBER Date: 2022-11-20 15:34 Normal [facility] CBC AUTO DIFFon 08-31-2022 BASO # 0.0 103/ul Normal 0.0-0.1 [facility] Comment on above: Performed By: #### F ETIBC, FERR, B12FOL #### [facility] [address] [place] [address] Dr. Rusty Armstrong Basophils/100 WBC (Bld) 0.3 % Normal 0.2-2.0 [facility] Comment on above: Performed By: #### F ETIBC, FERR, B12FOL #### [facility] [address] [place] [address] Dr. Rusty Armstrong EO # 0.1 103/ul Normal 0.0-0.7 [facility] Comment on above: Performed By: #### F ETIBC, FERR, B12FOL #### [facility] [address] [place] [address] Dr. Rusty Armstrong Eosinophils/100 WBC (Bld) 1.6 % Normal 0.9-7.0 [facility] Comment on above: Performed By: #### F ETIBC, FERR, B12FOL #### [facility] [address] [place] [address] Dr. Rusty Armstrong Erythrocyte distribution width (RBC) [Ratio] 12.7 % Normal 11.0-15.0 [facility] Comment on above: Performed By: #### F ETIBC, FERR, B12FOL #### [facility] [address] [place] [address] Dr. Rusty Armstrong Hematocrit (Bld) [Volume fraction] 33.5 % Critically low 36.0-48.0 [facility] Comment on above: Performed By: #### F ETIBC, FERR, B12FOL #### [facility] [address] [place] [address] Dr. Rusty Armstrong Hemoglobin (Bld) [Mass/Vol] 12.2 g/dL Normal 12.0-16.0 [facility] Comment on above: Performed By: #### F ETIBC, FERR, B12FOL #### [facility] [address] [place] [address] Dr. Rusty Armstrong IG # 0.01 10e3/ul Normal 0.00-0.03 [facility] Comment on above: Performed By: #### F ETIBC, FERR, B12FOL #### [facility] [address] [place] [address] Dr. Rusty Armstrong IG % 0.1 % Normal 0.0-0.5 [facility] Comment on above: Performed By: #### F ETIBC, FERR, B12FOL #### [facility] [address] [place] [address] Dr. Rusty Armstrong LYMPH # 1.7 103/ul Normal 1.2-3.8 [facility] Comment on above: Performed By: #### F ETIBC, FERR, B12FOL #### [facility] [address] [place] [address] Dr. Rusty Armstrong Lymphocytes/100 WBC (Bld) 24.6 % Normal 20.5-60.0 [facility] Comment on above: Performed By: #### F ETIBC, FERR, B12FOL #### [facility] [address] [place] [address] Dr. Rusty Armstrong MANUAL DIFF REQ NO Normal [facility] Comment on above: Performed By: #### F ETIBC, FERR, B12FOL #### [facility] [address] [place] [address] Dr. Rusty Armstrong MCH (RBC) [Entitic mass] 29.9 pg Normal 26.7-34.0 [facility] Comment on above: Performed By: #### F ETIBC, FERR, B12FOL #### [facility] [address] [place] [address] Dr. Rusty Armstrong MCHC (RBC) [Mass/Vol] 36.4 g/dL Critically high 29.9-35.2 [facility] Comment on above: Performed By: #### F ETIBC, FERR, B12FOL #### [facility] [address] [place] [address] Dr. Rusty Armstrong MCV (RBC) [Entitic vol] 82.1 fL Normal 81.0-99.0 [facility] Comment on above: Performed By: #### F ETIBC, FERR, B12FOL #### [facility] [address] [place] [address] Dr. Rusty Armstrong MONO # 0.4 103/ul Normal 0.3-0.8 [facility] Comment on above: Performed By: #### F ETIBC, FERR, B12FOL #### [facility] [address] [place] [address] Dr. Rusty Armstrong Monocytes/100 WBC (Bld) 5.2 % Normal 1.7-12.0 [facility] Comment on above: Performed By: #### F ETIBC, FERR, B12FOL #### [facility] [address] [place] [address] Dr. Rusty Armstrong NEUT # 4.6 103/ul Normal 1.4-6.5 [facility] Comment on above: Performed By: #### F ETIBC, FERR, B12FOL #### [facility] [address] [place] [address] Dr. Rusty Armstrong Neutrophils/100 WBC (Bld) 68.2 % Normal 43.0-75.0 [facility] Comment on above: Performed By: #### F ETIBC, FERR, B12FOL #### [facility] [address] [place] [address] Dr. Rusty Armstrong Platelet mean volume (Bld) [Entitic vol] 9.4 fL Critically low 9.5-13.5 [facility] Comment on above: Performed By: #### F ETIBC, FERR, B12FOL #### [facility] [address] [place] [address] Dr. Rusty Armstrong PLT 254 103/ul Normal 150-450 [facility] Comment on above: Performed By: #### F ETIBC, FERR, B12FOL #### [facility] [address] [place] [address] Dr. Rusty Armstrong RBC 4.08 106/ul Critically low 4.20-5.40 [facility] Comment on above: Performed By: #### F ETIBC, FERR, B12FOL #### [facility] [address] [place] [address] Dr. Rusty Armstrong WBC 6.7 103/ul Normal 4.0-11.0 [facility] Comment on above: Performed By: #### F ETIBC, FERR, B12FOL #### [facility] [address] [place] [address] Dr. Rusty Armstrong FERRITINon 08-31-2022 Ferritin [Mass/Vol] 161.0 ng/mL Normal 8.0-252.0 [facility] Comment on above: Performed By: #### F ETIBC, FERR, B12FOL #### [facility] [address] [place] [address] Dr. Rusty Armstrong IRON AND TIBCon 08-31-2022 % SATURATION 20.3 % Normal [facility] Comment on above: Performed By: #### F ETIBC, FERR, B12FOL #### [facility] [address] [place] [address] Dr. Rusty Armstrong Iron [Mass/Vol] 72.0 ug/dL Normal 50.0-170.0 [facility] Comment on above: Performed By: #### F ETIBC, FERR, B12FOL #### [facility] [address] [place] [address] Dr. Rusty Armstrong TIBC DIRECT 355.0 ug/dL Normal 250.0-450.[address] [facility] Comment on above: Performed By: #### F ETIBC, FERR, B12FOL #### [facility] [address] [place] [address] Dr. Rusty Armstrong TSHon 08-31-2022 TSH 0.055 uIU/mL Critically low 0.358-3.740 [facility] Comment on above: Performed By: #### T SH #### [facility] [address] [place] [address] Dr. Rusty Armstrong VIT B12 AND FOLATEon 023 Cobalamin (Vitamin B12) [Mass/Vol] 413.0 pg/mL Normal 193.0-986.0 [facility] Comment on above: Performed By: #### F ETIBC, FERR, B12FOL #### [facility] [address] [place] [address] Dr. Rusty Armstrong FOLATE 20.10 ng/mL Normal 8.60-58.90 [facility] Comment on above: Performed By: #### F ETIBC, FERR, B12FOL #### [facility] [address] [place] [address] Dr. Rusty Armstrong MG MAMM SCREEN 3D JOSE C CADon 06-25-2022 MG MAMM SCREEN 3D JOSE C CAD Patient: HILDA COOL Exam Date: 06/25/2022 : 1950 Gender:F Ordering : DR LOCO DENIS D.O. Admission #: [id number] Family : Order #: [id number] CLICK HERE TO VIEW EXAM RADIOLOGY REPORT [...] breast cancer at age 41. LOCATION: [facility] BREAST COMPOSITION: Scattered areas fibroglandular density. [...] MD on 06/25/2022 at 12:50 Normal [facility] CBC AUTO DIFFon 06-11-2022 BASO # 0.0 103/ul Normal 0.0-0.1 [facility] Comment on above: Performed By: #### F ETIBC, FERR, B12FOL #### [facility] [address] [address] [address] Rusty Armstrong Basophils/100 WBC (Bld) 0.3 % Normal 0.2-2.0 [facility] Comment on above: Performed By: #### F ETIBC, FERR, B12FOL #### [facility] [address] [address] [address] Rusty Armstrong EO # 0.1 103/ul Normal 0.0-0.7 [facility] Comment on above: Performed By: #### F ETIBC, FERR, B12FOL #### [facility] [address] [address] [address] Rusty Armstrong Eosinophils/100 WBC (Bld) 1.6 % Normal 0.9-7.0 [facility] Comment on above: Performed By: #### F ETIBC, FERR, B12FOL #### [facility] [address] [address] [address] Rusty Armstrong Erythrocyte distribution width (RBC) [Ratio] 12.8 % Normal 11.0-15.0 [facility] Comment on above: Performed By: #### F ETIBC, FERR, B12FOL #### [facility] [address] [place] [address] Dr. Rusty Armstrong Hematocrit (Bld) [Volume fraction] 33.5 % Critically low 36.0-48.0 [facility] Comment on above: Performed By: #### F ETIBC, FERR, B12FOL #### [facility] [address] [place] [address] Dr. Rusty Armstrong Hemoglobin (Bld) [Mass/Vol] 11.6 g/dL Critically low 12.0-16.0 [facility] Comment on above: Performed By: #### F ETIBC, FERR, B12FOL #### [facility] [address] [place] [address] Dr. Rusty Armstrong IG # 0.02 10e3/ul Normal 0.00-0.03 [facility] Comment on above: Performed By: #### F ETIBC, FERR, B12FOL #### [facility] [address] [place] [address] Dr. Rusty Armstrong IG % 0.3 % Normal 0.0-0.5 [facility] Comment on above: Performed By: #### F ETIBC, FERR, B12FOL #### [facility] [address] [place] [address] Dr. Rusty Armstrong LYMPH # 1.8 103/ul Normal 1.2-3.8 [facility] Comment on above: Performed By: #### F ETIBC, FERR, B12FOL #### [facility] [address] [place] [address] Dr. Rusty Armstrong Lymphocytes/100 WBC (Bld) 25.6 % Normal 20.5-60.0 [facility] Comment on above: Performed By: #### F ETIBC, FERR, B12FOL #### [facility] [address] [place] [address] Dr. Rusty Armstrong MANUAL DIFF REQ NO Normal [facility] Comment on above: Performed By: #### F ETIBC, FERR, B12FOL #### [facility] [address] [place] [address] Dr. Rusty Armstrong MCH (RBC) [Entitic mass] 29.9 pg Normal 26.7-34.0 [facility] Comment on above: Performed By: #### F ETIBC, FERR, B12FOL #### [facility] [address] [place] [address] Dr. Rusty Armstrong MCHC (RBC) [Mass/Vol] 34.6 g/dL Normal 29.9-35.2 [facility] Comment on above: Performed By: #### F ETIBC, FERR, B12FOL #### [facility] [address] [place] [address] Dr. Rusty Armstrong MCV (RBC) [Entitic vol] 86.3 fL Normal 81.0-99.0 [facility] Comment on above: Performed By: #### F ETIBC, FERR, B12FOL #### [facility] [address] [place] [address] Dr. Rusty Armstrong MONO # 0.4 103/ul Normal 0.3-0.8 [facility] Comment on above: Performed By: #### F ETIBC, FERR, B12FOL #### [facility] [address] [place] [address] Dr. Rusty Armstrong Monocytes/100 WBC (Bld) 5.9 % Normal 1.7-12.0 [facility] Comment on above: Performed By: #### F ETIBC, FERR, B12FOL #### [facility] [address] [place] [address] Dr. Rusty Armstrong NEUT # 4.6 103/ul Normal 1.4-6.5 [facility] Comment on above: Performed By: #### F ETIBC, FERR, B12FOL #### [facility] [address] [place] [address] Dr. Rusty Armstrong Neutrophils/100 WBC (Bld) 66.3 % Normal 43.0-75.0 [facility] Comment on above: Performed By: #### F ETIBC, FERR, B12FOL #### [facility] [address] [address] [address] Rusty Armstrong Platelet mean volume (Bld) [Entitic vol] 8.9 fL Critically low 9.5-13.5 [facility] Comment on above: Performed By: #### F ETIBC, FERR, B12FOL #### [facility] [address] [address] [address] Rusty Armstrong PLT 242 103/ul Normal 150-450 [facility] Comment on above: Performed By: #### F ETIBC, FERR, B12FOL #### [facility] [address] [address] [address] Rusty Armstrong RBC 3.88 106/ul Critically low 4.20-5.40 [facility] Comment on above: Performed By: #### F ETIBC, FERR, B12FOL #### [facility] [address] [place] [address] Dr. Rusty Armstrong WBC 7.0 103/ul Normal 4.0-11.0 [facility] Comment on above: Performed By: #### F ETIBC, FERR, B12FOL #### [facility] [address] [address] [address] Rusty Armstrong DIRECT LDLon 06-11-2022 Cholesterol in LDL [Mass/Vol] 111 mg/dL Normal [facility] Comment on above: Performed By: #### F ETIBC, FERR, B12FOL #### [facility] [address] [place] [address] Dr. Rusty Armstrong DLDL NORMAL SEE BELOW Normal [facility] Comment on above: Result Comment: <100 mg/dl OPTIMAL 100 - 129 mg/dl NEAR OR ABOVE OPTIMAL 130 - 159 mg/dl BORDERLINE HIGH 160 - 189 mg/dl HIGH >190 mg/dl VERY HIGH Performed By: #### F ETIBC, FERR, B12FOL #### [facility] [address] [place] [address] Dr. Rusty Armstrong LIPID PROFILEon 06-11-2022 CHOL-HDL RATIO NORM SEE BELOW Normal [facility] Comment on above: Result Comment: 3.3 - 4.4 LOW RISK 4.4 - 7.1 AVERAGE RISK 7.1 - 11.0 MODERATE RISK >11.0 HIGH RISK Performed By: #### A LT, LIPID, TSH, BMP, DLDL #### [facility] [address] [address] [address] Rusty Armstrong Cholesterol [Mass/Vol] 215 mg/dL Critically high <=200 [facility] Comment on above: Performed By: #### A LT, LIPID, TSH, BMP, DLDL #### [facility] [address] [address] [address] Rusty Armstrong Cholesterol in HDL [Mass/Vol] 38 mg/dL Critically low 40-60 [facility] Comment on above: Performed By: #### A LT, LIPID, TSH, BMP, DLDL #### [facility] [address] [place] [address] Dr. Rusty Armstrong Cholesterol.total/Ch olesterol in HDL [Mass ratio] 5.7 {ratio} Normal [facility] Comment on above: Performed By: #### A LT, LIPID, TSH, BMP, DLDL #### [facility] [address] [place] [address] Dr. Rusty Armstrong HDL NORMAL > or = 60 mg/dl - LO W CARDIOVASCULAR RISK <40 mg/dl - HIGH CARDIOVASCULAR RISK Normal [facility] Comment on above: Performed By: #### A LT, LIPID, TSH, BMP, DLDL #### [facility] [address] [address] [address] Rusty Armstrong Triglyceride [Mass/Vol] 401 mg/dL Critically high <=150 [facility] Comment on above: Performed By: #### A LT, LIPID, TSH, BMP, DLDL #### [facility] [address] [address] [address] Rusty Armstrong VLDL CALC 80.2 mg/dL Normal [facility] Comment on above: Performed By: #### A LT, LIPID, TSH, BMP, DLDL #### [facility] [address] [place] [address] Dr. Rusty Armstrong MICROALBUMIN, RAND URon 11-0 mALB 3.0 mg/L Normal <=30.0 [facility] Comment on above: Performed By: #### F ETIBC, FERR, B12FOL #### [facility] [address] [place] [address] Dr. Rusty Armstrong PROF CHEM 8 (BAS METB)on Anion gap [Moles/Vol] 9.6 mmol/L Normal [facility] Comment on above: Performed By: #### F ETIBC, FERR, B12FOL #### [facility] [address] [place] [address] Dr. Rusty Armstrong Calcium [Mass/Vol] 9.2 mg/dL Normal 8.5-10.1 [facility] Comment on above: Performed By: #### F ETIBC, FERR, B12FOL #### [facility] [address] [place] [address] Dr. Rusty Armstrong Chloride [Moles/Vol] 103 mmol/L Normal 98-107 [facility] Comment on above: Performed By: #### F ETIBC, FERR, B12FOL #### [facility] [address] [place] [address] Dr. Rusty Armstrong CO2 [Moles/Vol] 27.8 mmol/L Normal 21.0-32.0 [facility] Comment on above: Performed By: #### F ETIBC, FERR, B12FOL #### [facility] [address] [place] [address] Dr. Rusty Armstrnog Creatinine [Mass/Vol] 0.83 mg/dL Normal 0.55-1.02 [facility] Comment on above: Performed By: #### F ETIBC, FERR, B12FOL #### [facility] [address] [place] [address] Dr. Rusty Armstrong EGFR-AF BURMESE >60 Normal >=60 [facility] Comment on above: Performed By: #### F ETIBC, FERR, B12FOL #### [facility] [address] [place] [address] Dr. Rusty Armstrong EGFR-NON AF BURMESE >60 Normal >=60 [facility] Comment on above: Performed By: #### F ETIBC, FERR, B12FOL #### [facility] [address] [address] [address] Rusty Armstrong Glucose [Mass/Vol] 221 mg/dL Critically high 74-106 [facility] Comment on above: Performed By: #### F ETIBC, FERR, B12FOL #### [facility] [address] [place] [address] Dr. Rusty Armstrong Potassium [Moles/Vol] 4.4 mmol/L Normal 3.5-5.1 [facility] Comment on above: Performed By: #### F ETIBC, FERR, B12FOL #### [facility] [address] [place] [address] Dr. Rusty Armstrong Sodium [Moles/Vol] 136 mmol/L Normal 136-145 [facility] Comment on above: Performed By: #### F ETIBC, FERR, B12FOL #### [facility] [address] [place] [address] Dr. Rusty Armstrong Urea nitrogen [Mass/Vol] 21.0 mg/dL Critically high 7.0-18.0 [facility] Comment on above: Performed By: #### F ETIBC, FERR, B12FOL #### [facility] [address] [place] [address] Dr. Rusty Armstrong Urea nitrogen/Creatinine [Mass ratio] 25.3 mg/mg Normal [facility] Comment on above: Performed By: #### F ETIBC, FERR, B12FOL #### [facility] [address] [place] [address] Dr. Rusty Armstrong SGPTon 06-11-2022 ALT [Catalytic activity/Vol] 18 U/L Normal 14-59 [facility] Comment on above: Performed By: #### F ETIBC, FERR, B12FOL #### [facility] [address] [place] [address] Dr. Rusty Armstrong TSHon 06-11-2022 TSH 0.043 uIU/mL Critically low 0.358-3.740 [facility] Comment on above: Performed By: #### F ETIBC, FERR, B12FOL #### [facility] [address] [address] [address] Rusty Armstrong GLYCOHEMOGLOBIN A1Con 2021 ADA RECOMMENDATION SEE BELOW Normal [facility] Comment on above: Result Comment: ADA RECOMMENDED LIMIT 4.0 - 6.0 ADA THERAPEUTIC TARGET < 7.0 ACTION SUGGESTED > 7.0 Performed By: #### F ETIBC, FERR, B12FOL #### [facility] [address] [address] [address] Rusty Armstrong Glucose [Mass/Vol] 157 mg/dL Normal [facility] Comment on above: Performed By: #### F ETIBC, FERR, B12FOL #### [facility] [address] [address] [address] Rusty Armstrong HbA1c (Bld) [Mass fraction] 7.1 % Critically high 4.5-6.2 [facility] Comment on above: Performed By: #### F ETIBC, FERR, B12FOL #### [facility] [address] [address] [address] Rusty Armstrong Vital Signs Date Time Vital Sign Value Performing Clinician Facility 06-22-2024 11:28-0500 Body height 162.56 cm [facility] 06-22-2024 11:28-0500 Body mass index (BMI) [Ratio] 33.9 kg/m2 [facility] 06-22-2024 11:28-0500 Body weight 89.58 kg [facility] 06-22-2024 11:28-0500 Diastolic blood pressure 72 mm[Hg] [facility] 06-22-2024 11:28-0500 Heart rate 62 /min [facility] 06-22-2024 11:28-0500 Respiratory rate 12 /min [facility] 06-22-2024 11:28-0500 Systolic blood pressure 134 mm[Hg] [facility] 07-19-2023 14:45-0500 Body height 162.56 cm Loco Ball Other [facility] Other 07-19-2023 14:45-0500 Body mass index (BMI) [Ratio] 32.34 kg/m2 Loco Ball Other [facility] Other 07-19-2023 14:45-0500 Body weight 85.46 kg Loco Ball Other [facility] Other 07-19-2023 14:45-0500 Diastolic blood pressure 67 mm[Hg] Loco Ball Other [facility] Other 07-19-2023 14:45-0500 Respiratory rate 16 /min Loco Ball Other [facility] Other 07-19-2023 14:45-0500 SaO2% (BldA) [Mass fraction] 96 % Loco Ball Other [facility] Other 07-19-2023 14:45-0500 Systolic blood pressure 121 mm[Hg] Loco Ball Other [facility] Other 06-17-2023 14:30-0500 Body height 162.56 cm Loco Ball Other [facility] Other 06-17-2023 14:30-0500 Body mass index (BMI) [Ratio] 32.58 kg/m2 Loco Ball Other [facility] Other 06-17-2023 14:30-0500 Body weight 86.09 kg Loco Ball Other [facility] Other 06-17-2023 14:30-0500 Diastolic blood pressure 75 mm[Hg] Loco Ball Other [facility] Other 06-17-2023 14:30-0500 Respiratory rate 12 /min Loco Ball Other [facility] Other 06-17-2023 14:30-0500 Systolic blood pressure 119 mm[Hg] Loco Ball Other [facility] Other 03-21-2023 11:15-0400 Body height 162.56 cm Loco Ball Other [facility] Other 03-21-2023 11:15-0400 Body mass index (BMI) [Ratio] 31.68 kg/m2 Loco Ball Other [facility] Other 03-21-2023 11:15-0400 Body weight 83.73 kg Loco Ball Other [facility] Other 03-21-2023 11:15-0400 Diastolic blood pressure 70 mm[Hg] Loco Ball Other [facility] Other 03-21-2023 11:15-0400 Respiratory rate 12 /min Loco Ball Other [facility] Other 03-21-2023 11:15-0400 Systolic blood pressure 112 mm[Hg] Loco Ball Other [facility] Other Encounters Encounter Date Encounter Type Care Provider Facility Start: 06-22-2024 End: 06-22-2024 ambulatory [facility] Work Phone: Start: 06-22-2024 End: 06-22-2024 Patient encounter procedure [facility] Work Phone: Start: 06-20-2024 Patient encounter procedure [facility] Start: 06-17-2024 Non-patient / Non-visit [facility] Work Phone: Start: 09-02-2023 End: 09-02-2023 ambulatory Loco Denis Other [facility] Other Start: 09-02-2023 Telephone encounter Loco Ball [facility] Start: 08-21-2023 End: 08-21-2023 ambulatory Loco Ball Other [facility] Other Start: 08-21-2023 Telephone encounter Loco Ball [facility] Start: 08-07-2023 End: 08-07-2023 ambulatory Loco Ball Other [facility] Other Start: 08-07-2023 Telephone encounter Loco Ball [facility] Start: 07-24-2023 End: 07-24-2023 ambulatory Loco Ball Other [facility] Other Start: 07-24-2023 Telephone encounter Loco Ball [facility] Start: 07-23-2023 End: 07-23-2023 ambulatory Loco Ball Other [facility] Other Start: 07-23-2023 Telephone encounter Loco Ball [facility] Start: 07-19-2023 End: 07-19-2023 ambulatory Loco Ball Other [facility] Other Start: 07-19-2023 Office outpatient vi sit 15 minutes Loco Ball [facility] Start: 07-19-2023 Telephone encounter Loco Ball [facility] Start: 07-17-2023 End: 07-17-2023 ambulatory Loco Ball Other [facility] Other Start: 07-17-2023 Telephone encounter Loco Ball [facility] Start: 07-02-2023 End: 07-02-2023 ambulatory Loco Ball Other [facility] Other Start: 07-02-2023 Telephone encounter Loco Ball [facility] Start: 07-01-2023 End: 07-01-2023 ambulatory Loco Ball Other [facility] Other Start: 07-01-2023 Telephone encounter Loco Ball [facility] Start: 06-24-2023 End: 06-24-2023 ambulatory Loco Denis Other [facility] Other Start: 06-24-2023 Telephone encounter Loco Denis [facility] Start: 06-18-2023 End: 06-18-2023 ambulatory Loco Denis Other [facility] Other Start: 06-18-2023 Telephone encounter oLco Denis [facility] Start: 06-17-2023 End: 06-17-2023 ambulatory Loco Denis Other [facility] Other Start: 06-17-2023 Patient encounter procedure Loco Denis [facility] Start: 06-12-2023 End: 06-12-2023 ambulatory Loco Denis Other [facility] Other Start: 06-12-2023 Telephone encounter Loco PUENTES [facility] Start: 03-21-2023 End: 03-21-2023 ambulatory Loco Denis Other [facility] Other Start: 03-21-2023 Office outpatient vi sit 15 minutes Loco Denis [facility] Start: 03-06-2023 End: 03-06-2023 ambulatory Loco Denis Other [facility] Other Start: 03-06-2023 Telephone encounter Loco Denis [facility] Start: 12-26-2022 End: 12-27-2022 ambulatory Raheem SANTANA Facility:[id number] Start: 12-05-2022 End: 12-06-2022 ambulatory Raheem SANTANA Facility: [facility] Start: 11-28-2022 ambulatory Devon DEGROOT Facility : [facility] Start: 11-23-2022 ambulatory Raheem SANTANA Facility : [place] Start: 11-22-2022 End: 11-22-2022 ambulatory Loco Denis Other [facility] Other Start: 11-22-2022 Telephone encounter Loco Denis [facility] Start: 11-21-2022 Telephone encounter Loco PUENTES [facility] Start: 11-21-2022 End: 11-22-[address] LOCO DENIS [facility] Other Start: 11-20-2022 End: 11-21-[address] LOCO DENIS Facility:[facility] Start: 10-22-2022 End: 10-22-2022 ambulatory Loco Denis Other [facility] Other Start: 10-22-2022 Office outpatient vi sit 15 minutes Loco Denis [facility] Start: 08-31-2022 End: 09-01-[address] LOCO DENIS Facility:[facility] Start: 06-25-2022 End: 06-26-[address] LOCO DENIS Facility:[facility] Start: 06-11-2022 End: 06-12-[address] LOCO DENIS Facility:[facility] Start: 04-20-2022 End: 04-21-[address] LOCO DENIS Facility:[facility] Start: 01-22-2022 ambulatory Devon Carter ty:EU [facility] Plan of Treatment Date Care Activity Detail Author Comprehensive metabo lic 2000 panel - Serum or Plasma [facility] enter MG Breast - bilateral Screening [facility] Microalbumin [Mass/volume] in Urine [facility] Immunizations Immunization Date Immunization Notes Care Provider Deni garza 06-22-2024 influenza, high dose seasonal, preservative-free [facility] 04-11-2023 influenza, high dose seasonal, preservative-free Loco Denis Other [facility] Other 04-11-2023 influenza virus vaccine, unspecified formulation [facility] 06-11-2022 influenza virus vaccine, split virus (incl. purified surface antigen) Loco Denis Other [facility] Other 06-11-2022 influenza virus vaccine, unspecified formulation [facility] 05-03-2021 influenza virus vaccine, split virus (incl. purified surface antigen) Loco Denis Other [facility] Other 05-03-2021 influenza virus vaccine, unspecified formulation [facility] 09-28-2020 COVID-19 Vaccine Moderna - Documentation Purposes Only Loco Denis Other [facility] 06-06-2020 influenza virus vaccine, split virus (incl. purified surface antigen) Loco Denis Other [facility] Other 06-06-2020 influenza virus vaccine, unspecified formulation [facility] 06-05-2019 influenza virus vaccine, split virus (incl. purified surface antigen) Loco Denis Other [facility] Other 06-05-2019 influenza virus vaccine, unspecified formulation [facility] 06-04-2018 influenza virus vaccine, split virus (incl. purified surface antigen) Loco Denis Other [facility] Other 06-04-2018 influenza virus vaccine, unspecified formulation [facility] 06-04-2018 pneumococcal polysaccharide vaccine, 23 valent Loco Denis Other [facility] 04-23-2017 influenza virus vaccine, split virus (incl. purified surface antigen) Loco Denis Other [facility] [employer] Other 04-23-2017 influenza virus vaccine, unspecified formulation [facility] 11-20-2016 pneumococcal conjuga te vaccine, 13 valent Loco Denis Other [facility] 10-22-2011 diphtheria, tetanus toxoids and acellular pertussis vaccine, unspecified formulation Loco Denis Other [facility] Payers Date Payer Category Payer Private Health Insurance [id number] 1958 Medicare [id number] 2.1 [id number] 1958 Private Health Insurance CLI [id number] 1950 Unknown [id number] 2.16.8 [id number] 1950 Unknown [id number] 2.16.8 [id number] 1950 Unknown [id number] 2.16.8 [id number] 1950 Unknown [id number] 2.16.8 [id number] 1950 Unknown [id number] 2.16.84 [id number] 1950 Unknown [id number] 2.16.84 [id number] 1950 Unknown [id number] 2.16.84 [id number] 1950 Unknown [id number] 2.16.84 [id number] 1950 Unknown [id number] 2.16.84 [id number] 1950 Unknown [id number] 2.16.84 [id number] 1950 Unknown [id number] 2.16.84 [id number] Social History Date Type Detail Facility Sex Assigned At [facility] Other Tobacco smoking stat [facility] Unknown if ever smoked [facility] Work Phone: Start: 06-22-2024 Sex Female (finding) [facility] Start: 1950 Sex Assigned At Female F [facility] Medical Equipment Procedure Code Equipment Code Equipment Origin al Text Equipment Identifier Dates OneTouch UltraSo ft Lancets - Blood Sugar Diagnostic (Onetouch Ultra Test) strip Start: 11-28-2023 Lancets (On[facility]ouc h Del[facility]) [facility] Start: 10-22-2023 Clinical Notes 10-22-2022 to 08-21-2023 Note Date & Type Note Facility 08-21-2023 Evaluation note Encounter Date Diagnosis Assessment Notes Aug, Primary hypertension (ICD-10 - I10) [place] [email or web address] Other 01-03-2024 Evaluation note* Encounter Date Diagnosis Assessment Notes Treatment Notes Treatment Clinical Notes Aug, Primary hypertension (ICD-10 - I10) [facility] Other 12-20-2023 Evaluation note* Encounter Date Diagnosis Assessment Notes Treatment Notes Treatment Clinical Notes Jul, Acute bronchitis due to other specified organisms (ICD-10 - J20.8) [facility] Other 12-15-2023 Evaluation note* Encounter Date Diagnosis [...] BS may increase while experiencing respiratory illness [facility] Other 11-28-2023 Evaluation note* Encounter Date Diagnosis Assessment Notes Treatment Notes Treatment Clinical Notes Jun, Abnormal mammogram of left breast (ICD-10 - R92.8) [facility] Other 11-27-2023 Evaluation note* Encounter Date Diagnosis Assessment Notes Treatment Notes Treatment Clinical Notes Jun, Autoimmune thyroiditis (ICD-10 - E06.3) Yearly TSH [facility] Other 11-20-2023 Evaluation note* Encounter Date Diagnosis Assessment Notes Treatment Notes Treatment Clinical Notes Jun, Primary hypertension (ICD-10 - I10) [facility] Other 11-13-2023 Evaluation note* Encounter Date Diagnosis [...] High risk medication use (ICD-10 - Z79.899) [facility] Other 11-08-2023 Evaluation note* Encounter Date Diagnosis Assessment Notes Treatment Notes Treatment Clinical Notes Jun, Primary hypertension (ICD-10 - I10) [facility] Other 08-17-2023 Evaluation note* Encounter Date Diagnosis [...] BS 200 Reduce calores/sweets and increase activity [facility] Other 08-02-2023 Evaluation note* Encounter Date Diagnosis Assessment Notes Treatment Notes Treatment Clinical Notes Mar, Type 2 diabetes mellitus with hyperglycemia, without long-term current use of insulin (ICD-10 - E11.65) [facility] Other 05-24-2023 NoteOPERATIVE NOTE OPERATION DATE: 12/26/2022 [...] good condition. 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 FINDINGS: BONES:No fracture, acute abnormality, or significant arthropathy. SOFT TISSUES:No visible soft tissue swelling. EFFUSION:None visible. OTHER: Negative. IMPRESSION: 1. No acute bone abnormality or bone lesion. 2. Minimal degenerative joint disease. Electronically authenticated by: SOTO SCHREIBER Date: 2022-11-20 15:27[facility]03-20-2023 Evaluation note* Encounter Date Diagnosis [...] requires no treatment. Push fluids and rest [email or web address] Other Evaluation noteNo InformationNort [email or web address] Other Evaluation note* Diagnosis Onset Date Resolution [...] wit h hyperglycemia acute June 22 10:46am [facility] Work Phone: Hismmdr general Narrative - Reported* Type Description Date [...] Colonoscopy 2011 Hospitalization History see surgical history [email or web address] Other [facility] general Narrative - Reported* Type Description Date [...] Colonoscopy 12/2022 Hospitalization History see surgical history [email or web address] Other History general Narrative - Reported* Type [...] breast 07/2023 Hospitalization History see surgical history [email or web address] Other Reason for referral (narrative)* Reason Referral for EGD and Colonoscopy Diagnosis 1 Anemia, unspecified type (D64.9) Diagnosis 2 Colon cancer screeni (Z12.11) Referral Organization [facility] sheryl Referring Provider First Name Loco Referring Provider Last Name Adeel Referring Provider Specialty Internal Ia dicine Referred Organization [facility] Referred Provider Raheem Santana Referred Address [address] [place], [place],[address] Referred Provider Specialty Surgery Referral Priority Routine [...] CBC, B12, FA, iron, TIBC and ferritin. [email or web address] Other Summary Purpose Family History No Family [...] FOR VISIT (unrecogniz ed section and content) [phone] cold and wheezi ngXray resultsNo InformationLab ResultsLab Resultsback painrefillWELLNESSCologuardRefillNo InformationNo Informationmedication questionWELLNESSWants XraywheezingNo InformationFNA resultsATBrefillMedication ChangeRefills INFORMATION SOURCE (unrecogn ized section and content) DATE CREATED AUTHOR 01/11/2023 [facility] DATE CREATED AUTHOR AUTHOR'S ORGANIZ ATION 01/11/2023 [facility] Teams (unrecognized sec tion and [...] BE BASED ON THE PRIMARY CLINICAL RECORDS. [employer] [facility]. provides no warranty or guarantee of the accuracy or completeness of information in this document.
[2024-10-13 12:41] LABS: Basophils Percent Auto 0.4 % (0.2-2.0); Eosinophils Absolute Auto 0.1 10^3/uL (0.0-0.7); Eosinophils Percent Auto 1.7 % (0.9-7.0); Hematocrit 33.4 % (36.0-48.0); Hemoglobin 11.2 g/dL (12.0-16.0); Immature Granulocytes Abs Auto 0.01 10^3/uL (0.00-0.03); Immature Granulocytes Pct Auto 0.1 % (0.0-0.5); Lymphocytes Absolute Auto 1.8 10^3/uL (1.2-3.8); Lymphocytes Percent Auto 25.9 % (20.5-60.0); Mean Corpuscular HGB Conc 33.5 g/dL (29.9-35.2); Mean Corpuscular Hemoglobin 30.3 pg (26.7-34.0); Mean Corpuscular Volume 90.3 fL (81.0-99.0); Mean Platelet Volume 9.3 fL (9.5-13.5); Monocytes Absolute Auto 0.5 10^3/uL (0.3-0.8); Monocytes Percent Auto 6.9 % (1.7-12.0); Neutrophils Absolute Auto 4.5 10^3/uL (1.4-6.5); Platelet Count 275 10^3/uL (150-450); Red Cell Distribution Width 12.9 % (11.0-15.0); White Blood Count 6.9 10^3/uL (4.0-11.0)
[2024-10-13 13:10] LABS: Estimated Average Glucose 154 mg/dL
== END 2024-10-13 12:19 | disposition home or self-care (01) ==
LOC: LAB 12:21
PROVIDERS: PCP Internal Medicine; Visit Provider Internal Medicine
DX: D64.9 Anemia, unspecified (principal); E11.65 Type 2 diabetes mellitus with hyperglycemia
CPT/HCPCS: 36415; 83036; 85025

== ENCOUNTER 2025-07-14 13:31 | Outpatient (OUT) | payer MEDICARE, SELFPAY ==
--- NOTE | 2025-07-14 13:33 | MM_ITS ---
Patient Name: JIM HALLMAN MR#: [id number] : 1950 Exam Date: 07/14/2025 Ordering Doctor: DR MATIAS TRIMBLE D.O. RADIOLOGY REPORT PROCEDURE: MM TOMOSYNTHESIS SCREENING BI COMPARISON: MM TOMOSYNTHESIS SCREENING BI, 06/29/2024. MM DIAGNOSTIC MAMMO UNILAT LT, 07/15/2023. MM TOMOSYNTHESIS SCREENING BI, 06/26/2023. MG MAMM SCREEN 3D JOSE C CAD, 06/25/2022. INDICATIONS: Screening Calculator Name NCI Breast Cancer Risk Assessment Tool 5 Year Breast Cancer Risk 2.90% Lifetime Breast Cancer Risk 7.00% Personal Breast Cancer No Personal Ovarian Cancer No Treatments None Family Cancers Aunt-maternal with breast cancer at age ~40. LOCATION: [facility] BREAST COMPOSITION: There are scattered areas of fibroglandular density. FINDINGS: RIGHT BREAST: No significant suspicious finding. LEFT BREAST: No significant suspicious finding. DIAGNOSTIC CATEGORY 1--NEGATIVE. RECOMMENDATIONS: ROUTINE MAMMOGRAM AND CLINICAL EVALUATION IN 12 MONTHS. Dictated by: Sagar Duarte DO on 07/15/2025 at 12:59 Approved by: Sagar Duarte DO on 07/15/2025 at 13:02
--- OUTSIDE RECORDS SUMMARY | 2025-07-14 13:35 | XMS_ITS | CCD ---
Author Organization [facility] Care Team Providers Care Hand Tapper Name Role Phone Loco Denis Unavailable Devon [...] Unavailable BALL, DR SALCEDO Primary Care Unavailable [place], DR SANTINO [employer] Unavailable BALL, DR [...] Unavailable BALL, DR SALCEDO Primary Care Unavailable Ball Loco MARTINEZ Primary Care Provider Loco Denis DO Attending Provider Allergies Allergy ClassificationReported Allergen(s)Allergy TypeDate of OnsetReaction(s) Facility (5 sources)Penicillin; 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: [penicillin][facility] AllergyUnknoHenry [facility] (20 sources)Substance with sulfonamide structure and antibacterial mechanism of action (substance)Drug allergyUnknowRipley [facility] [employer] Other (2 sources)Alfentanil; 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: [Alfenta]Drug AllergyC[facility] Repository (2 sources)Midazolam; 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: [Versed]Drug AllergyC[facility] Repository (4 sources)Penicillins; 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: [penicillins]Propensity to adverse reactions (disorder)76-90-5145Amiijyk ReactionCleveland Clinic Marymount Hospital Repository (1 source)Sulfonamides (Antibiotic); 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: [sulfa drugs]Propensity to adverse reactions (disorder)[facility] Repository (1 source)Sulfonamides (Antibiotic)Drug allergy (disorder)[facility] Repository (18 sources)Substance with penicillin structure and antibacterial mechanism of action (substance)Drug allergyUnknowRipley County Memorial Hospital [employer] Other (3 sources)Sulfonamides (Antibiotic)Allergy to lzgctmjem67-46-9603Wbvrcqa ReactionAshtabula County Medical Center Medications Current Medications MedicationDrug Class(es)DatesSig (Normalized)Sig (Original)amLODIPine 5 mg oral tablet (20 sources)Dihydropyridine Calcium Channel BlockerStart: 88-39-0093urob 1 tablet by mouth once dailyAmlodipine 5 mg tablet Active 5 MG PO Daily November 06, 2024 1:07pm Complies with drug therapyStart: 11-07-2023 End: 69-44-5193ibqs 1 tablet by mouth once dailyAmlodipine 5 mg tablet Discontinued 0 .ROUTE .COMPLEX November 07, 2023 12:09pm November 06, 2024 1:08pm TAKE 1 TABLET BY MOUTH EVERY DAYStart: 10-15-2023 End: 51-83-5513duhx 1 tablet by mouth once dailyAmlodipine 5 mg tablet Discontinued 5 MG PO Daily October 15, 2023 12:00am November 07, 2023 12:09pmtake 1 tablet by mouth once dailyamLODIPine Besylate 5 MG TAKE 1 TABLET BY MOUTH EVERY DAY Activeaspirin 81 mg delayed release oral tablet (20 sources)Platelet Aggregation Inhibitor, Nonsteroidal Anti-inflammatory Drug Start: 45-22-5786wcqi 1 tablet by mouth once dailyAspirin 81 mg tablet,delayed release (DR/EC) Active 81 MG PO Daily October 15, 2023 12:00am Complies with drug therapytake 1 tablet by mouth once dailyAspirin EC 81 MG 1 tablet Orally Once a day Activeatorvastatin 40 mg oral tablet (20 sources)HMG-CoA Reductase InhibitorStart: 47-25-9495hbzd 1 tablet by mouth once daily in the eveningAtorvastatin 40 mg tablet Active 0 .ROUTE .COMPLEX 90 October 24, 2024 8:44am TAKE 1 TABLET BY MOUTH EVERY DAY IN THE EVENING Complies with drug therapyStart: 10-15-2023 End: 85-49-5366pioc 1 tablet by mouth once daily in the eveningAtorvastatin 40 mg tablet Discontinued 40 MG PO Every evening October 15, 2023 12:00am October 24, 2024 8:44amtake 1 tablet by mouth once daily in the eveningAtorvastatin Calcium 40 MG TAKE 1 TABLET BY MOUTH EVERY DAY IN THE EVENING for 90 Active carvedilol 12.5 mg oral tablet (20 sources)alpha-Adrenergic Donna, beta-Adrenergic BlockerStart: 10-24-2024 take 1 tablet by mouth twice daily at mealtimeCarvedilol 12.5 mg tablet Active 0 .ROUTE .COMPLEX 180 October 24, 2024 8:44am TAKE 1 TABLET BY MOUTH TWICE A DAY WITH FOOD Complies with drug therapyStart: 10-15-2023 End: 59-53-7944xnvi 1 tablet by mouth twice dailyCarvedilol 12.5 mg tablet Discontinued 12.5 MG PO Twice daily October 15, 2023 12:00am October 24, 2024 8:44amCarvedilol 12.5 MG TAKE 1 TABLET BY MOUTH TWICE A DAY WITH FOOD FOR 30 DAYS for 90 ActiveglipiZIDE er 10 mg 24 hr extended release oral tablet (20 sources)SulfonylureaStart: 73-86-8095fodh 2 tablets by mouth once daily Glipizide 10 mg tablet extended release 24hr Active 0 .ROUTE .COMPLEX 180 May 15, 2024 6:56amTAKE 2 TABLETS BY MOUTH EVERY DAY Complies with drug therapyStart: 10-15-2023 End: 56-99-7279iqpq 1 tablet by mouth once dailyGlipizide 10 mg tablet extended release 24hr Discontinued 20 MG PO Daily October 15, 2023 12:00am May 15, 2024 6:56amglipiZIDE ER 10 MG TAKE 2 TABLETS BY MOUTH EVERY DAY FOR 30 DAYS for 90 Activetake 2 tablets by mouth once dailyglipiZIDE ER TAKE 2 TABLETS BY MOUTH EVERY DAY FOR 30 DAYS Activetake 1 tablet by mouth every twenty-four hours glipiZIDE ER 10 MG 1 tablet with breakfast Orally Once a day Active hydroCHLOROthiazide 25 mg oral tablet (9 sources)Thiazide DiureticStart: 10-15-2023 End: 41-01-6390fire 1 tablet by mouth once dailyHydrochlorothiazide 25 mg tablet Active 25 MG PO Daily November 06, 2024 1:07pm Complies with drug therapy Start: 22-95-4658znte 1 tablet by mouth every twenty-four hours hydroCHLOROthiazide 25 MG 1 tablet in the morning Orally Once a day for 90 days Aug, Activelevothyroxine sodium 0.1 mg oral tablet (20 sources)l-ThyroxineStart: 02-12-2024 End: 51-03-5977lkns 1 tablet by mouth once dailyLevothyroxine 100 mcg tablet Active 0 .ROUTE .COMPLEX January 31, 2025 4:35pm TAKE 1 TABLET BY MOUTH ONCE A DAY ON AN EMPTY STOMACH Complies with drug therapyStart: 10-15-2023 End: 29-43-4585ngnm 1 tablet by mouth once dailyLevothyroxine 100 mcg tablet Discontinued 100 MCG PO Daily October 15, 2023 12:00am February 1148:42amtake 1 tablet by mouth once dailyLevothyroxine Sodium 100 MCG TAKE 1 TABLET BY MOUTH ON AN EMPTY STOMACH ONCE A DAY for ActiveLevothyroxine Sodium 100 MCG TAKE 1 TABLET BY MOUTH ONCE A DAY ON AN EMPTY STOMACH Orally Once a day for 30 days Activetake 1 tablet by mouth once dailyLevothyroxine Sodium 112 MCG TAKE 1 TABLET BY MOUTH ONCE A DAY ON AN EMPTY STOMACH Activetake 1 tablet by mouth once dailyLevothyroxine Sodium 137 MCG 1 tablet Orally Once a day, on an empty stomach for 30 days Activetake 1 tablet by mouth once daily in the morning Levothyroxine Sodium 125 MCG 1 tablet in the morning on an empty stomach Orally Once a day Activelisinopril 40 mg oral tablet (20 sources)Angiotensin Converting Enzyme InhibitorStart: 40-54-4371irxt 1 tablet by mouth once dailyLisinopril 40 mg tablet Active 0 .ROUTE .COMPLEX October 25, 2024 5:07pm TAKE 1 TABLET BY MOUTH EVERY DAY Complies with drug therapyStart: 10-15-2023 End: 37-27-4578hzun 1 tablet by mouth once dailyLisinopril 40 mg tablet Discontinued 40 MG PO Daily October 15, 2023 12:00am October 25, 2024 5:07pm Lisinopril 40 MG TAKE 1 TABLET BY MOUTH EVERY DAY Orally Once a day for 30 days ActivemetFORMIN hydrochloride 1000 mg oral tablet (20 sources)BiguanideStart: 10-15-2023 End: 95-43-4750bpla 1 tablet by mouth once dailyMetformin 1,000 mg tablet Active 1000 MG PO Daily 90 November 06, 2024 1:08pm Complies with drug therapy metFORMIN HCl 1000 MG 1 Orally Once a day Activetake 1 tablet by mouth twice dailymetFORMIN HCl 1000 MG TAKE 1 TABLET BY MOUTH TWICE A DAY for 90 Active OneTouch Ultra - (20 sources)OneTouch Ultra - USE TO TEST BLOOD SUGAR DAILY for ActiveOneTouch Ultra - Use to test home BS In Vitro daily for 30 days Activepioglitazone 15 mg oral tablet (20 sources)Peroxisome Proliferator Receptor alpha Agonist, Peroxisome Proliferator Receptor gamma Agonist, ThiazolidinedioneStart: 09-25-2023 End: 83-07-2544gqvj 1 tablet by mouth once dailyPioglitazone 15 mg tablet Active 0 .ROUTE .COMPLEX June 18, 2024 7:50am TAKE 1 TABLET BY MOUTH EVERY DAY Complies with drug therapyStart: 09-25-2023 End: 89-23-7836vrsg 1 tablet by mouth once dailyPioglitazone 15 mg tablet Discontinued 15 MG PO Daily September 25, 2023 1:00am September 25, 2023 9:28amStart: 92-10-7789cpbe 1 tablet by mouth every twenty-four hours Pioglitazone HCl 15 MG 1 tablet Orally Once a day Mar, Active Completed/Discontinued Medications MedicationDrug Class(es)DatesSig (Normalized)Sig (Original)azithromycin 500 mg oral tablet (15 sources)Macrolide AntimicrobialStart: 11-06-2023 End: 10-53-4045Nseoskgybgwu 500 mg tablet Discontinued 500 MG PO As Directed 08 05November 06, 2023 12:00am June 22, 2024 12:26pm Take 30 minutes prior to dental appt.Start: 57-32-7568Kjxbnxdciafr 250 MG as directed Orally daily for 5 days Jul, ActiveAzithromycin 250 MG as directed Orally daily for 5 days Activechlorthalidone 25 mg oral tablet (20 sources)Thiazide-like DiureticStart: 10-15-2023 End: 39-72-5684uozj 1 tablet by mouth once dailyChlorthalidone 25 mg tablet Discontinued 25 MG PO Daily October 15, 2023 12:00am February 04, 2024 10:30am Start: 56-18-4964Eikwshojezebgk 25 MG 1 Orally qod for 30 days Sep, ActiveStart: 26-60-7617xrau 0.5 tablet by mouth once dailyChlorthalidone 25 MG 1/2 tablet Orally Once a day Sep, Active Problems Active Problems Problem ClassificationProblemDateDocumented DateEpisodic/ChronicAbdominal hernia (1 source)Diaphragmatic hernia without obstruction or gangrene; 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: [DIAPH HERNIA W/O OBST/GANGRENE]Onset: 62-94-4624JedcntplFhvjt bronchitis (3 sources)Acute bronchitis due to other specified organismsEpisodicCalculus of urinary tract (20 sources)History of calculus of kidney; 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: [Personal history of urinary calculi]EpisodicChronic kidney disease (2 sources)Chronic kidney disease; 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: [Chronic kidney disease, unspecified]12-87-0485WotdzdmQtfpiglbmh and other anemia (6 sources)Anemia, unspecified; 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: [Anemia, unspecified]Onset: 43-28-3658UrtejunoBgxbsoqmbj and other anemia (3 sources)Anemia; 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: [Anemia, unspecified]75-19-2806QrxnhctuFfujpoen mellitus with complications (20 sources)Type 2 diabetes mellitus; 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: [Type 2 diabetes mellitus with hyperglycemia]Onset: 53-76-6190JcpjhouJnixzmih mellitus without complication (1 source)Type 2 diabetes mellitus without complications; 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: [TYPE 2 DM WITHOUT COMPLICATIONS]Onset: 48-21-6370RuheqxnTrxuituzt of lipid metabolism (20 sources)Pure hypercholesterolemia; 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: [Familial hypercholesterolemia]Onset: 86-72-5575MngeaiaGixqbzydzrxfln and diverticulitis (1 source)Diverticulosis of large intestine without perforation or abscess without bleeding; 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: [DVRTCLOS LG INT NO PERF/ABSC W/O BL]Onset: 80-82-1673OycqnylKzoiqxkua hypertension (20 sources)Essential hypertension; 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: [Essential (primary) hypertension]Onset: 60-97-1549LmcmncyIalj disorders (20 sources)Recurrent major depression; 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: [Major depressive disorder, recurrent, unspecified]72-02-8325QisdqlrFwjvztlfy or stenosis of precerebral arteries (20 sources)Right carotid artery stenosis; 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: [Occlusion and stenosis of right carotid artery]91-31-6861HftmdtzLbdwuozjmgaatr (20 sources)Idiopathic osteoarthritis; 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, right knee]Onset: 036518-21-9188EodqekqCsgeb aftercare (4 sources)H/O: high risk medication; 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: [Other exterminator termite (current) drug therapy]EpisodicOther aftercare (1 source)nursing home (current) use of aspirin; 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: [CARE HOME CURRENT USE OF ASPIRIN]Onset: 53-79-1425BzlyakvhHkbuq aftercare (1 source)nursing home (current) use of oral hypoglycemic drugs; 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: [CARE HOME USE ORAL HYPOGLYCEMIC DX]Onset: 37-61-2063FdbbxxstBoefr aftercare (3 sources)Other exterminator termite (current) drug therapy; 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: [OTH CARE HOME CURRENT DRUG THERAPY]Onset: 16-17-5894BvcardtxFxhaw non-traumatic joint disorders (1 source)Pain in right hip; 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: [PAIN IN RIGHT HIP]Onset: 11-25-2022 EpisodicOther nutritional; endocrine; and metabolic disorders (8 sources)Obesity; 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: [Obesity, unspecified]40-28-2989XdkwxndJuzqg nutritional; endocrine; and metabolic disorders (18 sources)Obesity caused by energy imbalance; 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: [Other obesity due to excess calories]ChronicOther nutritional; endocrine; and metabolic disorders (20 sources)Body mass index 30+ - obesity; 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: [Body mass index (BMI) 31.0-31.9, adult]ChronicOther nutritional; endocrine; and metabolic disorders (2 sources)Other obesity due to excess caloriesChronicOther nutritional; endocrine; and metabolic disorders (2 sources)Body mass index (BMI) 32.0-32.9, adultChronicOther nutritional; endocrine; and metabolic disorders (2 sources)Obesity, unspecified; 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: [Obesity, unspecified]06-22-2024 ChronicOther screening for suspected conditions (not mental disorders or infectious disease) (11 sources)Encounter for screening mammogram for malignant neoplasm of breast; 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: [Other abnormal and inconclusive findings on diagnostic imaging of breast]Onset: 42-25-1812NmmefveoNidsb upper respiratory disease (4 sources)Allergic rhinitis; 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: [Vasomotor rhinitis]Chronic Spondylosis; intervertebral disc disorders; other back problems (20 sources)Lumbosacral spondylosis with radiculopathy; 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: [Other spondylosis with radiculopathy, lumbosacral region]Onset: 62-40-1203Zajieel Thyroid disorders (20 sources)Autoimmune hypothyroidism; 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: [Autoimmune thyroiditis] Onset: 14-16-8863NbdxkjzTsrnhhxmepck (3 sources)LOW BACK PAIN, UNSPECIFIED; 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: [LOW BACK PAIN, UNSPECIFIED]Onset: 11-22-2022 Past or Other Problems Problem ClassificationProblemDateDocumented DateEpisodic/ChronicResidual codes; unclassified (1 source)Family history of malignant neoplasm of breast; 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: [FAMILY HX MALIG NEOPLASM OF BREAST]Onset: 52-29-8449VykiflnlKkdekaecqgrs (1 source)LOW BACK PAIN, UNSPECIFIED; 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: [LOW BACK PAIN, UNSPECIFIED] Onset: 55-54-2775Jxcdrnhgdejw (1 source)Acute left-sided low back pain without sciatica M54.50 Results Test NameValueInterpretationReference RangeFacilityOutside Colonoscopyon 09-02-9039Vnvcdql [id number]#1.00CD:127 [facility] 87-94-2244Pozklhxsr From: Bethany Smith LPN To: GSN - Clinical; Sent: 12/27/2022 10:52:47 EDT Show up: 11/26/2032 07:00:00 EDT Subject: colonoscopy recall Due Date/Time: 12/26/2032 07:00:00 EDT Reminder/Recall Patient due for screening colonoscopy 12/26/2032.[facility] InstitutePOINT OF CARE GLUCOSEon 72-09-8434Wlgiegi [Mass/Vol]261 mg/dLCritically hmnk73-242Ncl [facility] CampusComment on above:Performed By: #### POCGLUC #### [facility] [address] [address] [address] Rusty Marquez for Procedure/Surgeryon 17-41-5494Nuwdasc for Procedure/[id number]#1.00CD:127[facility] InstituteFacesheeton 27-82-4974Egumgywka [id number]#1.00CD:127[facility] InstituteAmbulatory Visit Summaryon 62-03-1050Gqfzbsghdw Visit Summary HILDA COOL :1950 Visit Date:12/05/2022 [...] Mouth Every day Contact prescribing physician if questionsor concerns Unchanged lisinopril 40 Milligram By Mouth [...] Recurrent major depression Right carotid artery stenosis BIRI (stress urinary incontinence, female) Type 2 diabetes mellitus [facility] InstitutePhysician Referralon 11-30-2022 Physician [id number]#1.00CD:127Normal [facility] HospitalPhysician Referralon 18-18-4676Jwrywoxpa Referral [id number]#1.00CD:127NormalCleveland Clinic Marymount HospitalFOLATE ([facility])on 41-39-4681Cmyopp>20.0Normal>3.0The [facility] Comment on above:Result Comment: A serum folate concentration of less than 3.1 ng/mL is considered to represent clinical deficiency.Performed By: #### FETIBC FERR, B12FOL #### [facility] [address] [place] [address] Dr. Rusty Cordoba AUTO DIFFon 23-55-1268GWZX #0.0 103/ulNormal0.0-0.1[facility] HospitalComment on above:Performed By: #### FETIBC, FERR, B12FOL #### [facility] [address] [place] [address] Dr. Rusty ArmstrongBasophils/100 WBC (Bld)0.7 %Normal0.2-2.0The [facility] Comment on above:Performed By: #### FETIBC, FERR, B12FOL #### [facility] [address] [place] [address] Dr. Rusty Finnegan #0.2 103/ulNormal0.0-0.7The [facility] CampusComment on above: Performed By: #### FETIBC, FERR, B12FOL #### [facility] [address] [place] [address] Dr. Rusty Lennonosinophils/100 WBC (Bld)3.1 %Normal0.9-7.0The [facility] Comment on above:Performed By: #### FETIBC, FERR, B12FOL #### [facility] [address] [place] [address] Dr. Rusty Lennonrythrocyte distribution width (RBC) [Ratio]12.6 %Lkgnmv64.0-15.0 The [facility] CampusComment on above:Performed By: #### FETIBC, FERR, B12FOL #### [facility] [address] [place] [address] Dr. Rusty ArmstrongHematocrit (Bld) [Volume fraction]33.2 %Critically low36.0-48.0 The [facility] CampusComment on above:Performed By: #### FETIBC, FERR, B12FOL #### [facility] [address] [place] [address] Dr. Rusty ArmstrongHemoglobin (Bld) [Mass/Vol]11.5 g/dLCritically low12.0-16.0The [facility] CampusComment on above:Performed By: #### FETIBC, FERR, B12FOL #### [facility] [address] [place] [address] Dr. Rusty ArmstrongIG #0.01 10e3/ulNormal0.00-0.03The [facility] CampusComment on above:Performed By: #### FETIBC, FERR, B12FOL #### [facility] [address] [place] [address] Dr. Rusty Reina %0.2 %Normal0.0-0.5The [facility] CampusComment on above: Performed By: #### FETIBC, FERR, B12FOL #### [facility] [address] [place] [address] Dr. Rusty Fletcher #1.7 103/ulNormal1.2-3.8The [facility] CampusComment on above:Performed By: #### FETIBC, FERR, B12FOL #### [facility] [address] [place] [address] Dr. Rusty Medinahocytes/100 WBC (Bld)31.4 %Xvtkkd86.5-60.0The [facility] CampusComment on above:Performed By: #### FETIBC, FERR, B12FOL #### [facility] [address] [place] [address] Dr. Rusty AllredACMC HEALTHC[facility] DIFF REQNONormalThe [facility] CampusComment on above: Performed By: #### FETIBC, FERR, B12FOL #### [facility] [address] [place] [address] Dr. Rusty Erwin (RBC) [Entitic mass]30.2 mwJzjdtx69.7-34.0The [facility] CampusComment on above:Performed By: #### FETIBC, FERR, B12FOL #### [facility] [address] [place] [address] Dr. Rusty Erwin (RBC) [Mass/Vol]34.6 g/jGMxrotd27.9-35.2The [facility] CampusComment on above:Performed By: #### FETIBC, FERR, B12FOL #### [facility] [address] [place] [address] Dr. Rusty Erwin (RBC) [Entitic vol]87.1 eLTyqreb57.0-99.0The [facility] CampusComment on above:Performed By: #### FETIBC, FERR, B12FOL #### [facility] [address] [place] [address] Dr. Rsuty Ruelas #0.4 103/ulNormal0.3-0.8The [facility] CampusComment on above:Performed By: #### FETIBC, FERR, B12FOL #### [facility] [address] [place] [address] Dr. Rusty Garciaocytes/100 WBC (Bld)6.5 %Normal1.7-12.0The [facility] Comment on above:Performed By: #### FETIBC, FERR, B12FOL #### [facility] [address] [place] [address] Dr. Rusty Uribe #3.2 103/ulNormal1.4-6.5The [facility] CampusComment on above:Performed By: #### FETIBC, FERR, B12FOL #### [facility] [address] [place] [address] Dr. Rusty Revelesutrophils/100 WBC (Bld)58.1 %Cqljik89.0-75.0The [facility] CampusComment on above:Performed By: #### FETIBC, FERR, B12FOL #### [facility] [address] [place] [address] Dr. Rusty Pardo mean volume (Bld) [Entitic vol]9.2 fLCritically low 9.5-13.5The [facility] CampusComment on above:Performed By: #### FETIBC, FERR, B12FOL #### [facility] [address] [place] [address] Dr. Rusty ArmstrongPLT317 103/woYjnjcq046-293Ygl [facility] CampusComment on above: Performed By: #### FETIBC, FERR, B12FOL #### [facility] [address] [place] [address] Dr. Rusty ArmstrongRBC3.81 106/ulCritically low4.20-5.40The [facility] CampusComment on above:Performed By: #### FETIBC, FERR, B12FOL #### [facility] [address] [address] [address] Rusty ArmstrongWBC5.6 103/ulNormal4.0-11.0The [facility] Systemment on above: Performed By: #### FETIBC, FERR, B12FOL #### [facility] [address] [address] [address] Rusty ArmstrongFERRITINon 53-74-2265Nmoehwyp [Mass/Vol]264.0 ng/mLCritically high8.0-252.0The [facility] Systemment on above:Performed By: #### VITB12, FERR, FETIBC #### [facility] [address] [address] [address] Rusty ArmstrongGLYCOHEMOGLOBIN A1Con 70-75-8437UDP RECOMMENDATIONSEE BELOWNormal The [facility] CampusComment on above:Result Comment: ADA RECOMMENDED LIMIT 4.0 - 6.0 ADA THERAPEUTIC TARGET < 7.0 ACTION SUGGESTED > 7.0Performed By: #### FETIBC, FERR, B12FOL #### [facility] [address] [place] [address] Dr. Rusty ArmstrongGlucose [Mass/Vol]174 mg/dLNormalThe [facility] CampusCommary free bed rehabilitation [facility] on above:Performed By: #### FETIBC, FERR, B12FOL #### [facility] [address] [address] [address] Rusty ArmstrongHbA1c (Bld) [Mass fraction]7.7 %Critically high4.5-6.2The [facility] CampusCommary [facility] on above:Performed By: #### FETIBC, FERR, B12FOL #### [facility] [address] [address] [address] Rusty Jovel AND TIBCon 11-20-2022% QTYJUEYZMG20.6 %NormalThe [facility] on above:Performed By: #### VITB12, FERR, FETIBC #### [facility] [address] [place] [address] Dr. Rusty Jovel [Mass/Vol]76.0 ug/iERiapty64.0-170.0[facility] Comment on above:Performed By: #### VITB12, FERR, FETIBC #### [facility] [address] [place] [address] Dr. Rusty ArmstrnogTIBC SYUKTS813.0 ug/tHXwqtfd025.0-450.0[facility] Comment on above:Performed By: #### VITB12, FERR, FETIBC #### [facility] [address] [place] [address] Dr. Rusty ArmstrongTSHon 29-51-4623PHV4.049 uIU/mLCritically low0.358-3.740The [facility] HospitalComment on above:Performed By: #### TSH #### [facility] [address] [place] [address] Dr. Rusty ArmstrongVITAMIN B12on 21-97-2211Xptuvmjaw (Vitamin B12) [Mass/Vol]372.0 pg/jJXfqmaj437.0-986.0The [facility] CampusComment on above:Performed By: #### VITB12, FERR, FETIBC #### [facility] [address] [place] [address] Dr. Rusty ArmstrongXR LSPINE W_OBLS AND FLEX_EXTon 46-54-0303JW LSPINE W_OBLS AND FLEX_EXTEXAMINATION: XR LSPINE W_OBLS AND FLEX_EXT HISTORY: Lumbosacral [...] Electronically authenticated by: SOTO SCHREIBER Date: 2022-11-20 15:34[facility] AUTO DIFFon 19-15-0431SZHO #0.0 103/ulNormal0.0-0.1The [facility] CampusComment on above:Performed By: #### FETIBC, FERR, B12FOL #### [facility] [address] [place] [address] Dr. Rusty ArmstrongBasophils/100 WBC (Bld)0.3 %Normal0.2-2.0The [facility] Comment on above:Performed By: #### FETIBC, FERR, B12FOL #### [facility] [address] [place] [address] Dr. Rusty Finnegan #0.1 103/ulNormal0.0-0.7The [facility] CampusComment on above: Performed By: #### FETIBC, FERR, B12FOL #### [facility] [address] [place] [address] Dr. Rusty Lennonosinophils/100 WBC (Bld)1.6 %Normal0.9-7.0The [facility] Comment on above:Performed By: #### FETIBC, FERR, B12FOL #### [facility] Laboratory [address] [place] [address] Dr. Rusty Lennonrythrocyte distribution width (RBC) [Ratio]12.7 %Tibbrv63.0-15.0 The [facility] CampusComment on above:Performed By: #### FETIBC, FERR, B12FOL #### [facility] Laboratory [address] [place] [address] Dr. Rusty ArmstrongHematocrit (Bld) [Volume fraction]33.5 %Critically low36.0-48.0 The [facility] CampusComment on above:Performed By: #### FETIBC, FERR, B12FOL #### [facility] Laboratory [address] [place] [address] Dr. Rusty ArmstrongHemoglobin (Bld) [Mass/Vol]12.2 g/jUOldywf50.0-16.0The [facility] CampusComment on above:Performed By: #### FETIBC, FERR, B12FOL #### [facility] Laboratory [address] [place] [address] Dr. Rusty ArmstrongIG #0.01 10e3/ulNormal0.00-0.03The [facility] CampusComment on above:Performed By: #### FETIBC, FERR, B12FOL #### [facility] Laboratory [address] [place] [address] Dr. Rusty Reina %0.1 %Normal0.0-0.5The [facility] CampusComment on above: Performed By: #### FETIBC, FERR, B12FOL #### [facility] Laboratory [address] [place] [address] Dr. Rusty Fletcher #1.7 103/ulNormal1.2-3.8The [facility] CampusComment on above:Performed By: #### FETIBC, FERR, B12FOL #### [facility] Laboratory [address] [place] [address] Dr. Rusty Santiagohocytes/100 WBC (Bld)24.6 %Jrrdgj53.5-60.0The [facility] CampusComment on above:Performed By: #### FETIBC, FERR, B12FOL #### [facility] Laboratory [address] [place] [address] Dr. Rusty AllredUAL DIFF REQNONormalThe [facility] CampusComment on above: Performed By: #### FETIBC, FERR, B12FOL #### [facility] Laboratory [address] [place] [address] Dr. Rusty Erwin (RBC) [Entitic mass]29.9 gkDwhphl37.7-34.0The [facility] on above:Performed By: #### FETIBC, FERR, B12FOL #### [facility] Laboratory [address] [place] [address] Dr. Rusty Erwin (RBC) [Mass/Vol]36.4 g/dLCritically high29.9-35.2The [facility] on above:Performed By: #### FETIBC, FERR, B12FOL #### [facility] Laboratory [address] [place] [address] Dr. Rusty Erwin (RBC) [Entitic vol]82.1 hZIhhyhp75.0-99.0The [facility] CampusComment on above:Performed By: #### FETIBC, FERR, B12FOL #### [facility] Laboratory [address] [place] [address] Dr. Rusty Ruelas #0.4 103/ulNormal0.3-0.8The [facility] CampusComment on above:Performed By: #### FETIBC, FERR, B12FOL #### [facility] Laboratory [address] [address] [address] Rusty Garciaocytes/100 WBC (Bld)5.2 %Normal1.7-12.0The [facility] Comment on above:Performed By: #### FETIBC, FERR, B12FOL #### [facility] Laboratory [address] [place] [address] Dr. Rusty Uribe #4.6 103/ulNormal1.4-6.5The [facility] CampusComment on above:Performed By: #### FETIBC, FERR, B12FOL #### [facility] Laboratory [address] [place] [address] Dr. Rusty Revelesutrophils/100 WBC (Bld)68.2 %Fnkbez04.0-75.0The [facility] CampusComment on above:Performed By: #### FETIBC, FERR, B12FOL #### [facility] Laboratory [address] [place] [address] Dr. Rusty Claroslet mean volume (Bld) [Entitic vol]9.4 fLCritically low 9.5-13.5The [facility] Systemment on above:Performed By: #### FETIBC, FERR, B12FOL #### [facility] Laboratory [address] [place] [address] Dr. Rusty ArmstrongPLT254 103/zrWfdqpa369-912Ewk [facility] CampusComment on above: Performed By: #### FETIBC, FERR, B12FOL #### [facility] Laboratory [address] [place] [address] Dr. Rusty ArmstrongRBC4.08 106/ulCritically low4.20-5.40The [facility] CampusComment on above:Performed By: #### FETIBC, FERR, B12FOL #### [facility] Laboratory [address] [place] [address] Dr. Rusty ArmstrongWBC6.7 103/ulNormal4.0-11.0The [facility] CampusComment on above: Performed By: #### FETIBC, FERR, B12FOL #### [facility] [address] [place] [address] Dr. Rusty ArmstrongFERRITINon 99-72-0958Xlhctuai [Mass/Vol]161.0 ng/mLNormal 8.0-252.0The [facility] CampusComment on above:Performed By: #### FETIBC, FERR, B12FOL #### [facility] Laboratory [address] [place] [address] Dr. Rusty Jovel AND TIBCon 08-31-2022% WQRDHMOZKW91.3 %NormalThe [facility] CampusComment on above:Performed By: #### FETIBC, FERR, B12FOL #### [facility] Laboratory [address] [place] [address] Dr. Rusty Jovel [Mass/Vol]72.0 ug/vYWfxmnr37.0-170.0The [facility] Comment on above:Performed By: #### FETIBC, FERR, B12FOL #### [facility] Laboratory [address] [place] [address] Dr. Rusty Wang ODYXPL797.0 ug/dMPelxwc136.0-450.0The [facility] Comment on above:Performed By: #### FETIBC, FERR, B12FOL #### [facility] Laboratory [address] [place] [address] Dr. Rusty Hussein 46-44-0790MKE1.055 uIU/mLCritically low0.358-3.740The [facility] CampusComment on above:Performed By: #### TSH #### [facility] Laboratory [address] [place] [address] Dr. Rusty Kirkpatrick B12 AND FOLATEon 34-97-8985Doyosnssa (Vitamin B12) [Mass/Vol] 413.0 pg/wQMbhfvl647.0-986.0The [facility] CampusComment on above:Performed By: #### FETIBC FERR, B12FOL #### [facility] Laboratory [address] [place], [place] [address] Dr. Rusty ArmstrongFOLATE20.10 ng/mLNormal8.60-58.90The [facility] CampusComment on above:Performed By: #### FETIBC, FERR, B12FOL #### [facility] [address] [place], [place] [address] Dr. Rusty ArmstrongMG MAMM SCREEN 3D JOSE C CADon 05-08-2928WC MAMM SCREEN 3D JOSE C CAD Patient: HILDA COOL Exam Date: 06/25/2022 : 1950 Gender:F Ordering : DR LOCO DENIS D.O. Admission #: [id number] Family : Order #: [id number] CLICK HERE TO VIEW EXAM RADIOLOGY REPORT [...] breast cancer at age 41. LOCATION: [facility] BREAST COMPOSITION: Scattered areas fibroglandular density. FINDINGS: [...] by: Santino Galeano MD on 06/25/2022 at 12:50No[facility] AUTO DIFFon 37-85-6879NHXY #0.0 103/ulNormal0.0-0.1The [facility] HospitalComment on above:Performed By: #### FETIBC, FERR, B12FOL #### [facility] [address] [place] [address] Dr. Rusty ArmstrongBasophils/100 WBC (Bld)0.3 %Normal0.2-2.0The [facility] Comment on above:Performed By: #### FETIBC, FERR, B12FOL #### [facility] Laboratory [address] [place] [address] Dr. Rusty Finnegan #0.1 103/ulNormal0.0-0.7The [facility] CampusComment on above: Performed By: #### FETIBC, FERR, B12FOL #### [facility] Laboratory [address] [place] [address] Dr. Rusty Lennonosinophils/100 WBC (Bld)1.6 %Normal0.9-7.0The [facility] Comment on above:Performed By: #### FETIBC, FERR, B12FOL #### [facility] Laboratory [address] [place] [address] Dr. Rusty Lennonrythrocyte distribution width (RBC) [Ratio]12.8 %Ncrsyt01.0-15.0 The [facility] CampusComment on above:Performed By: #### FETIBC, FERR, B12FOL #### [facility] [address] [place] [address] Dr. Rusty ArmstrongHematocrit (Bld) [Volume fraction]33.5 %Critically low36.0-48.0 The [facility] CampusComment on above:Performed By: #### FETIBC, FERR, B12FOL #### [facility] Laboratory [address] [place] [address] Dr. Rusty ArmstrongHemoglobin (Bld) [Mass/Vol]11.6 g/dLCritically low12.0-16.0The [facility] CampusComment on above:Performed By: #### FETIBC, FERR, B12FOL #### [facility] Laboratory [address] [place] [address] Dr. Rusty ArmstrongIG #0.02 10e3/ulNormal0.00-0.03The [facility] CampusComment on above:Performed By: #### FETIBC, FERR, B12FOL #### [facility] [address] [place] [address] Dr. Rusty Reina %0.3 %Normal0.0-0.5The [facility]Commary [facility] on above: Performed By: #### FETIBC, FERR, B12FOL #### [facility] Laboratory [address] [place] [address] Dr. Rusty Fletcher #1.8 103/ulNormal1.2-3.8The [facility] CampusComment on above:Performed By: #### FETIBC, FERR, B12FOL #### [facility] Laboratory [address] [place] [address] Dr. Rusty Santiagohocytes/100 WBC (Bld)25.6 %Akhtor84.5-60.0The [facility] CampusComment on above:Performed By: #### FETIBC, FERR, B12FOL #### [facility] Laboratory [address] [place] [address] Dr. Rusty ArmstrongELIZAVILLEUAL DIFF REQNONormalThe [facility] CampusComment on above: Performed By: #### FETIBC, FERR, B12FOL #### [facility] [address] [place] [address] Dr. Rusty Erwin (RBC) [Entitic mass]29.9 dcXwkntq53.7-34.0The [facility] CampusComment on above:Performed By: #### FETIBC, FERR, B12FOL #### [facility] Laboratory [address] [place] [address] Dr. Rusty Erwin (RBC) [Mass/Vol]34.6 g/hPUkhsfu94.9-35.2The [facility]Commary [facility] on above:Performed By: #### FETIBC, FERR, B12FOL #### [facility] [address] [place] [address] Dr. Rusty Erwin (RBC) [Entitic vol]86.3 sDQxfkod52.0-99.0The [facility] CampusComment on above:Performed By: #### FETIBC, FERR, B12FOL #### [facility] [address] [place] [address] Dr. Rusty Ruelas #0.4 103/ulNormal0.3-0.8The [facility] CampusComment on above:Performed By: #### FETIBC, FERR, B12FOL #### [facility] [address] [place] [address] Dr. Rusty Garciaocytes/100 WBC (Bld)5.9 %Normal1.7-12.0The [facility] Comment on above:Performed By: #### FETIBC, FERR, B12FOL #### [facility] Laboratory [address] [place] [address] Dr. Rusty Uribe #4.6 103/ulNormal1.4-6.5The [facility] CampusComment on above:Performed By: #### FETIBC, FERR, B12FOL #### [facility] [address] [place] [address] Dr. Rusty Revelesutrophils/100 WBC (Bld)66.3 %Sygqzu27.0-75.0The [facility] CampusComment on above:Performed By: #### FETIBC, FERR, B12FOL #### [facility] Laboratory [address] [place] [address] Dr. Rusty Pardo mean volume (Bld) [Entitic vol]8.9 fLCritically low 9.5-13.5The [facility] Systemment on above:Performed By: #### FETIBC, FERR, B12FOL #### [facility] [address] [place] [address] Dr. Rusty ArmstrongPLT242 103/jsMfarjv170-629Rif [facility] CampusComment on above: Performed By: #### FETIBC, FERR, B12FOL #### [facility] Laboratory [address] [place] [address] Dr. Rusty ArmstrongRBC3.88 106/ulCritically low4.20-5.40The [facility] on above:Performed By: #### FETIBC, FERR, B12FOL #### [facility] [address] [address] [address] Rusty ArmstrongWBC7.0 103/ulNormal4.0-11.0The [facility] on above: Performed By: #### FETIBC, FERR, B12FOL #### [facility] [address] [place] [address] Dr. Rusty BruceRECT LDLon 56-55-3255Zpxhwmplpvw in LDL [Mass/Vol]111 mg/dL NormalCleveland Clinic [facility] on above:Performed By: #### FETIBC, FERR, B12FOL #### [facility] Laboratory [address] [place] [address] Dr. Rusty ArmstrongDLDL NORMALSEE The [facility]Com[facility] on above: Result Comment: <100 mg/dl OPTIMAL 100 - 129 mg/dl NEAR OR ABOVE OPTIMAL 130 - 159 mg/dl BORDERLINE HIGH 160 - 189 mg/dl HIGH >190 mg/dl VERY HIGHPerformed By: #### FETIBC, FERR, B12FOL #### [facility] [address] [place] [address] Dr. Rusty ArmstrongLIPID PROFILEon 59-54-1277TGGN-HDL RATIO NORMSEE [facility] on above:Result Comment: 3.3 - 4.4 LOW RISK 4.4 - 7.1 AVERAGE RISK 7.1 - 11.0 MODERATE RISK >11.0 HIGH RISKPerformed By: #### ALT, LIPID, TSH, BMP, DLDL #### [facility] [address] [place] [address] Dr. Rusty ArmstrongCholesterol [Mass/Vol]215 mg/dLCritically high<=200The [facility] on above:Performed By: #### ALT, LIPID, TSH, BMP, DLDL #### [facility] [address] [place] [address] Dr. Rusty ArmstrongCholesterol in HDL [Mass/Vol]38 mg/dLCritically pav10-94Hqe [facility] HospitalComment on above:Performed By: #### ALT, LIPID, TSH, BMP, DLDL #### [facility] [address] [address] [address] Rusty Mezaesterchava.total/Cholesterol in HDL [Mass ratio]5.7 {ratio} NormalThe [facility] on above:Performed By: #### ALT, LIPID, TSH, BMP, DLDL #### [facility] [address] [place] [address] Dr. Rusty Pastor NORMAL> or = 60 mg/dl - LOW CARDIOVASCULAR RISK <40 mg/dl - HIGH CARDIOVASCULAR RISKNoMemorial Health System [facility] HospitalCommary [facility] on above:Performed By: #### ALT, LIPID, TSH, BMP, DLDL #### [facility] [address] [place] [address] Dr. Rusty ArmstrongTriglyceride [Mass/Vol]401 mg/dLCritically high<=150The [facility]Commary [facility] on above:Performed By: #### ALT, LIPID, TSH, BMP, DLDL #### [facility] [address] [place] [address] Dr. Rusty ArmstrongVLDL CALC80.2 mg/dLNoMemorial Health System Sel[facility] HospitalCommary [facility] on above: Performed By: #### ALT, LIPID, TSH, BMP, DLDL #### [facility] [address] [place] [address] Dr. Rusty ArmstrongMICROALBUMIN, RAND URon 77-98-0524dVOQ0.0 mg/LNormal<=30.0The [facility] on above:Performed By: #### FETIBC, FERR, B12FOL #### [facility] [address] [place] [address] Dr. Rusty ArmstrongPROF CHEM 8 (BAS METB)on 42-09-3028Jnfor gap [Moles/Vol]9.6 mmol/LNormalThe [facility] on above:Performed By: #### FETIBC, FERR, B12FOL #### [facility] [address] [place] [address] Dr. Rusty ArmstrongCalcium [Mass/Vol]9.2 mg/dLNormal8.5-10.1The [facility] Comment on above:Performed By: #### FETIBC, FERR, B12FOL #### [facility] [address] [address] [address] Rusty ArmstrongChloride [Moles/Vol]103 mmol/ZYvpxcd87-175Dgv [facility] Comment on above:Performed By: #### FETIBC, FERR, B12FOL #### [facility] [address] [address] [address] Rusty ArmstrongCO2 [Moles/Vol]27.8 mmol/VJkuilv65.0-32.0The [facility] Comment on above:Performed By: #### FETIBC, FERR, B12FOL #### [facility] [address] [place] [address] Dr. Rusty ArmstrongCreatinine [Mass/Vol]0.83 mg/dLNormal0.55-1.02The [facility] CampusComment on above:Performed By: #### FETIBC, FERR, B12FOL #### [facility] [address] [place] [address] Dr. Rusty LennonGFR-AF KAZAKH>60Normal>=60The [facility] CampusComment on above:Performed By: #### FETIBC, FERR, B12FOL #### [facility] Laboratory [address] [place] [address] Dr. Rusty LennonGFR-NON AF KAZAKH>60Normal>=60The [facility] CampusComment on above:Performed By: #### FETIBC, FERR, B12FOL #### [facility] Laboratory [address] [place] [address] Dr. Rusty ArmstrongGlucose [Mass/Vol]221 mg/dLCritically jdsv35-884Ath [facility] CampusComment on above:Performed By: #### FETIBC, FERR, B12FOL #### [facility] Laboratory [address] [place] [address] Dr. Rusty ArmstrongPotassium [Moles/Vol]4.4 mmol/LNormal3.5-5.1[facility] Comment on above:Performed By: #### FETIBC, FERR, B12FOL #### [facility] [address] [address] [address] Rusty ArmstrongSodium [Moles/Vol]136 mmol/NNbhodi002-408Sco [facility] Comment on above:Performed By: #### FETIBC, FERR, B12FOL #### [facility] [address] [address] [address] Rusty Leger nitrogen [Mass/Vol]21.0 mg/dLCritically high7.0-18.0The [facility] HospitalComment on above:Performed By: #### FETIBC, FERR, B12FOL #### [facility] [address] [address] [address] Rusty Leger nitrogen/Creatinine [Mass ratio]25.3 mg/mgNormalThe [facility] CampusComment on above:Performed By: #### FETIBC, FERR, B12FOL #### [facility] [address] [address] [address] Rusty Chambers 91-80-7180KMH [Catalytic activity/Vol]18 U/VLsntsi79-34Wku [facility] CampusComment on above:Performed By: #### FETIBC, FERR, B12FOL #### [facility] [address] [place] [address] Dr. Rusty Hussein 13-12-9267OGS4.043 uIU/mLCritically low0.358-3.740The [facility] CampusComment on above:Performed By: #### FETIBC, FERR, B12FOL #### [facility] Laboratory [address] [place] [address] Dr. Rusty ArmstrongGLYCOHEMOGLOBIN A1Con 27-28-6175YUB RECOMMENDATIONSEE BELOWNormal The [facility]Commary [facility] on above:Result Comment: ADA RECOMMENDED LIMIT 4.0 - 6.0 ADA THERAPEUTIC TARGET < 7.0 ACTION SUGGESTED > 7.0Performed By: #### FETIBC, FERR, B12FOL #### [facility] [address] [place] [address] Dr. Rusty ArmstrongGlucose [Mass/Vol]157 mg/dLNormCleveland Clinic FoundationComment on above:Performed By: #### FETKIMMY GARCIA, B12FOL #### [facility] [address] [address] [address] Rusty ArmstrongHbA1c (Bld) [Mass fraction]7.1 %Critically high4.5-6.2The [facility] HospitalComment on above:Performed By: #### BHARTI FERR, B12FOL #### [facility] [address] [address] [address] Rusty Armstrong Vital Signs Date TimeVital SignValuePerforming QfflofrhoVjfifyeo71-21-4670 10:12-0400Body rmuuyn821.56 cmBenjamin Ball DO Work Phone: [phone] [place], [place] 1704509-02-2025 10:12-0400 Body mass index (BMI) [Ratio]33.3 kg/b0Wthbktrf Ball DO Work Phone: [phone] [place], [place] 1704509-02-2025 10:12-0400 Body guozyb67.05 kgBenjamin Ball DO Work Phone: [phone] [place], [place] 1704509-02-2025 10:12-0400 Diastolic blood xponfzxt48 mm[Hg]Loco Ball DO Work Phone: [phone])[facility] [place], [place] 5873309-02-2025 10:12-0400 Heart rate69 /minBenjamin Ball DO Work Phone: [phone] [place], [place] 1704509-02-2025 10:12-0400 Respiratory rate12 /minBenjamin Ball DO Work Phone: [phone])[address] [place], [place] 1704509-02-2025 10:12-0400 Systolic blood jjaccpkc305 mm[Hg]Loco Ball DO Work Phone: [phone])[address] [place], [place] 1704503-11-2025 11:23-0400 Body xjgiab866.56 cmAs[facility]03[facility]20[facility] 11:23-0400Body mass index (BMI) [Ratio]33.5 kg/c0GxffzcpitAshtabula County Medical Center03-11-2025 11:23-0400Body yhfxds82.62 kgAshtabula County Medical Center03-11-2025 11:23-0400Diastolic blood mwpllyww93 mm[Hg][facility] 10-13-2024 11:23-0400Heart rate68 /[facility] 10-13-2024 11:23-0400Respiratory rate12 /[facility] 10-13-2024 11:23-3652DvA1% (BldA) [Mass fraction]98 %[facility]03-11-2025 11:23-0400Systolic blood jottpnmc989 mm[Hg][facility]11-18-2024 11:28-0500Body iespep211.56 cmAshtabula [facility] Center11-18-2024 11:28-0500Body mass index (BMI) [Ratio]33.9 kg/m2 [facility]11-18-2024 11:28-0500Body tacaxa85.58 kg [facility]11-18-2024 11:28-0500Diastolic blood oncuwpnq71 mm[Hg][facility]11-18-2024 11:28-0500Heart rate62 /min [facility]11-18-2024 11:28-0500Respiratory rate12 /min [facility]11-18-2024 11:28-0500Systolic blood ranzzejm959 mm[Hg][facility]12-15-2023 14:45-0500Body ywjcyk294.56 cmBenjamin Ball Other [employer] Other 12-15-2023 14:45-0500Body mass index (BMI) [Ratio] 32.34 kg/i4Xyxgwtbq Ball Other [employer] Other 12-15-2023 14:45-0500Body kostrd34.46 kgBenjamin Ball Other [employer] Other 12-15-2023 14:45-0500Diastolic blood rsgbwdaq06 mm[Hg] Loco Ball Other [employer] Other 12-15-2023 14:45-0500Respiratory rate16 /minBenjamin Ball Other [employer] Other 12-15-2023 14:45-4783PvL8% (BldA) [Mass fraction]96 % Loco Ball Other [employer] Other 12-15-2023 14:45-0500Systolic blood ibfztvmp651 mm[Hg] Loco Ball Other [employer] Other 11-13-2023 14:30-0500Body cmnvly193.56 cmBenjamin Ball Other [employer] Other 11-13-2023 14:30-0500Body mass index (BMI) [Ratio] 32.58 kg/i8Boxmxmas Ball Other [employer] Other 11-13-2023 14:30-0500Body jukjmj95.09 kgBenjamin Ball Other [employer] Other 11-13-2023 14:30-0500Diastolic blood majeehob53 mm[Hg] Loco Ball Other [employer] Other 11-13-2023 14:30-0500Respiratory rate12 /minBenjamin Ball Other [employer] Other 11-13-2023 14:30-0500Systolic blood umdjiwal280 mm[Hg] Loco Ball Other [employer] Other 08-17-2023 11:15-0400Body wmpjup499.56 cmBentameka Denis Other [employer] Other 08-17-2023 11:15-0400Body mass index (BMI) [Ratio] 31.68 kg/q3Mtqyzyuv Ball Other [employer] Other 08-17-2023 11:15-0400Body .73 kgBentameka Denis Other [employer] Other 08-17-2023 11:15-0400Diastolic blood nxrkystp24 mm[Hg] Loco Denis Other [employer] Other 08-17-2023 11:15-0400Respiratory rate12 /minBentameka Ball Other [employer] Other 08-17-2023 11:15-0400Systolic blood wyfcslzu112 mm[Hg] Loco Denis Other [employer] Other Encounters Encounter DateEncounter TypeCare ProviderFacilityStart: 04-06-2025 End: 77-17-4214zddjzmvuvfFjegzwgc Ball DO Work Phone: [facility] Work Phone: Start: 04-06-2025 End: 15-34-4074Xewtwze encounter procedureBenjamin Ball DO-[facility] Work Phone: Start: 10-13-2024 End: 84-21-1761nmuysqspooGlnegfvdcGreene [facility] Hospital Work Phone: Start: 10-13-2024 End: 13-91-0067Cjkmzyz encounter procedureFirlake [facility] Work Phone: Start: 06-22-2024 End: 66-59-8818ftdovmtubbCulwnurarGreene Memorial Hospital Work Phone: Start: 06-22-2024 End: 70-84-9207Oekwfmv encounter procedureCarolinaeast Medical Center [facility] Work Phone: Start: 30-87-4270Hpkbepu encounter procedureOhioHealth Riverside Methodist Hospitaltart: 60-48-1617Xeq-patient / Non-visitCarolinaeast Medical Center [facility] Work Phone: Start: 09-02-2023 End: 96-89-5377vtrvzmdivrKrqeunxn Ball Other [employer] Other Start: 70-72-9205Dolzgjaqx encounterBenjamin BallFPG [facility] ClinicStart: 08-21-2023 End: 05-51-0522dqewsssftjZhahjcet Ball Other [employer] Other Start: 22-26-1731Cpolihiru encounterBenjamin BallFPG [facility] ClinicStart: 08-07-2023 End: 88-41-5361ustkhugxjuUobayduw Ball Other [employer] Other Start: 43-03-6196Slqqlerzd encounterBenjamin BallFPG [facility] ClinicStart: 07-24-2023 End: 39-39-0763csczkbevouYxmxmbdw Ball Other [employer] Other Start: 93-22-1525Mwgerdaig encounterBenjamin BallFPG [facility] ClinicStart: 07-23-2023 End: 88-24-8556ujtlqhsnycRfgbbpuz Ball Other [employer] Other Start: 29-00-8309Ulwimglee encounterBenjamin BallFPG [facility] ClinicStart: 07-19-2023 End: 16-17-7874fnlxzpmodpArfoockn Ball Other [employer] Other Start: 64-06-2210Mkxdll outpatient visit 15 minutes Loco BallFPG [facility] ClinicStart: 09-76-4244Pjkxeaucn encounterBenjamin BallFPG [facility] ClinicStart: 07-17-2023 End: 65-36-2743gtdkmfnixvCgiektah Ball Other [employer] Other Start: 38-09-3858Paofdwjph encounterBenjamin BallFPG [facility] ClinicStart: 07-02-2023 End: 56-34-3560zjgxlonjitZskgqagy Ball Other [employer] Other Start: 78-01-0923Ipfniruxl encounterBenjamin BallFPG [facility] ClinicStart: 07-01-2023 End: 85-76-3361khdcghyntiOggkleak Ball Other [employer] Other Start: 43-91-8735Lugwpwnou encounterBenjamin BallFPG [facility] ClinicStart: 06-24-2023 End: 70-37-1131brqxdxgdkkKsmbqyre Ball Other [employer] Other Start: 64-46-5868Aonccuitl encounterBenjamin BallFPG [facility] ClinicStart: 06-18-2023 End: 45-78-1655lclcmpktppVokbzohy Ball Other [employer] Other Start: 93-35-3116Esovchxoj encounterBenjamin BallFPG [facility] ClinicStart: 06-17-2023 End: 15-48-6976ihwodxpswjCqondtgf Ball Other [employer] Other Start: 06-65-9358Gnggier encounter procedureBenrobermin AlistairG [facility] ClinicStart: 06-12-2023 End: 17-45-7843ebhpmfqvwvBeiywmnk Ball Other nort [employer] Other Start: 37-68-8334Sidnuzmmz encounterBenjamin BallFPG [facility] ClinicStart: 03-21-2023 End: 50-36-0365jxfevhvuihYtgbwpyu Ball Other [facility] [employer] Other Start: 50-73-7878Dhauyw outpatient visit 15 minutes Loco AdeelFPG [facility] ClinicStart: 03-06-2023 End: 93-07-9669azbfuukugzSosuxrcn Ball Other [facility] [employer] Other Start: 47-78-5150Nmehwfvuk encounterBenjamin BallFPG [facility] ClinicStart: 12-26-2022 End: 06-89-5166evavjdsztnTxneyun R NILLFacility::[id number]: 12-05-2022 End: 92-41-6706chxeegwyztCcrxnho R NILLFacility: [place]Start: 11-28-2022 ambulatoryPatrick WATERSFacility: [place]vueStart: 93-15-3640qrhauxkfbvEeriudr R NILLFacility: [place]Start: 11-22-2022 End: 08-28-0802whmaukhbzaKnnpifpl Ball Other [facility] [employer] Other Start: 76-20-6365Uwcvnutaw encounterBenjamin BallFPG [facility] ClinicStart: 06-24-0851Cjpwsrqzb encounterBenjamin BallFPG [facility] ClinicStart: 11-21-2022 End: 02-79-4616fbrcgaqpbyWC LOCO [facility] [employer] Other Start: 11-20-2022 End: 81-85-1724lvicdgabwiEQ LOCO DENISFacility:F3Dqjrd: 10-22-2022 End: 15-24-7586ipwrssnmfrBmtprybb Ball Other [employer] Other Start: 10-54-9437Oelxrk outpatient visit 15 minutes Loco [facility] ClinicStart: 08-31-2022 End: 58-20-4642gunahrspspGT LOCO DENISFacility:W1Tbngc: 06-25-2022 End: 39-80-7300qptmxuwryxZN LOCO DENISFacility:Z1Xqbhf: 06-11-2022 End: 23-83-9411rzdkkgsbzlRI LOCO ADEELFacility:A3Cabnz: 04-20-2022 End: 93-21-7357unudaartxdDO LOCO DENISFacility:D1Oruuv: 38-17-4271rordztmsir Devon Santana WATERSFacility:[place] Plan of Treatment DateCare ActivityDetailAuthorComprehensive metabolic 2000 panel - Serum or PlasmaAshtabula County Medical CenterMG Breast - bilateral ScreeningAshtabula County Medical CenterMicroalbumin [Mass/volume] in UrineH[facility] Immunizations Immunization DateImmunizationNotesCare WuyljrhnFpujhxgi32-92-8431hdqmymurq, high dose seasonal, preservative-freeBenjamin Ball DO Work Phone: [facility]11-18-2024influenza, high dose seasonal, preservative-freeAshtabula County Medical Center09-07-2023 influenza, high dose seasonal, preservative-freeBenjamin Ball Other [employer] Other 09-631515-72-9959fqlcmgnrw virus vaccine, unspecified formulationAshtabula County Medical Center11-07-2022influenza virus vaccine, split virus (incl. purified surface antigen)Loco Denis Other [employer] Other [id number] virus vaccine, unspecified formulationAshtabula County Medical Center09-29-2021influenza virus vaccine, split virus (incl. purified surface antigen)Loco Denis Other [employer] Other 09-752743-25-3640tfbwaueif virus vaccine, unspecified formulationAshtabula County Medical Center02-24-2021COVID-19 Vaccine Moderna - Documentation Purposes OnlyLoco Denis Other [facility]11-02-2020influenza virus vaccine, split virus (incl. purified surface antigen)Loco Denis Other [employer] Other 11072569-06-9411thusgrgig virus vaccine, unspecified formulationAshtabula County Medical Center11-01-2019influenza virus vaccine, split virus (incl. purified surface antigen)Loco Denis Other [employer] Other 11104727-55-4403twdnplmjv virus vaccine, unspecified formulationAshtabula County Medical Center10-31-2018influenza virus vaccine, split virus (incl. purified surface antigen)Loco Denis Other [employer] Other [id number] virus vaccine, unspecified formulationAshtabula County Medical Center10-31-2018pneumococcal polysaccharide vaccine, 23 valentLoco Denis Other [facility]09-19-2017influenza virus vaccine, split virus (incl. purified surface antigen)Loco Denis Other [employer] Other [id number] virus vaccine, unspecified formulationAshtabula County Medical Center04-18-2017pneumococcal conjugate vaccine, 13 valentBenjaanish Denis Other [facility]03-19-2012diphtheria, tetanus toxoids and acellular pertussis vaccine, unspecified formulation Loco Ball Other [facility] Payers DatePayer CategoryPayerPolicy [id number] Health [id number] [id number] Health [id number] [id number] 2.16.840.1.129295.3.57[id number] 2.16.840.1.073534.3.57[id number] 2.16.840.1.497185.3.57[id number] 2.16.840.1.075486.3.57[id number] 2.16.840.1.367453.3.57[id number] 2.16.840.1.697039.3.57[id number] 2.16.840.1.013162.3.57[id number] 2.16.840.1.049177.3.57[id number] 2.16.840.1.730234.3.57[id number] 2.16.840.1.093060.3.57[id number] 2.16.840.1.986490.3.579.2.593 Social History DateTypeDetailFacilitySex Assigned At [facility] [employer] Other Tobacco smoking status NHISUnknown if ever smoked [facility] Work Phone: Start: 06-22-2024 End: 74-86-7659TzjKxszfe (finding)[facility] Hospitaltart: 91-20-0437Gyt Assigned At [facility] Medical Equipment Procedure CodeEquipment CodeEquipment Original TextEquipment IdentifierDates OneTouch UltraSoft Lancets -Blood Sugar Diagnostic (Onetouch Ultra Test) strip Start: 18-91-6353Thkrdfj (Onetouch Delica Plus Lancet) 30 gauge miscStart: 96-00-6500Tzwwp Sugar Diagnostic (Onetouch Ultra Test) stripStart: 11-28-2023 Lancets (Onetouch Delica Plus Lancet) 30 gauge miscStart: 49-29-1020Qsias Sugar Diagnostic (Onetouch Ultra Test) stripStart: 50-44-1180Wthnxgr (Onetouch Delica Plus Lancet) 30 gauge miscStart: 69-72-0476Lbvnx Sugar Diagnostic (Onetouch Ultra Test) stripStart: 11-28-2023 End: 93-22-9481Hxtft Sugar Diagnostic (Onetouch Ultra Test) stripStart: 12-09-2024 End: 40-34-1890Gzeihnz (Onetouch Delica Plus Lancet) 30 gauge miscStart: 10-22-2023 End: 02-01-2025 Clinical Notes 10-22-2022 to 08-21-2023 Note Date & NmnrAkurAjkuhgxm18-83-2055 Evaluation note* Encounter Date Diagnosis Assessment Notes Treatment Notes Treatment Clinical Notes Aug, Primary hypertension (ICD-10 - I 10) [facility] Other 01-03-2024 Evaluation note* Encounter Date Diagnosis Assessment Notes Treatment Notes Treatment Clinical Notes Aug, Primary hypertension (ICD-10 - I 10) [facility] Other 12-20-2023 Evaluation note* Encounter Date Diagnosis Assessment Notes Treatment Notes Treatment Clinical Notes Jul, Acute bronchitis due to other sp ecified organisms (ICD-10 - J20.8) [facility] Other 12-15-2023 Evaluation note* Encounter Date Diagnosis Assessment Notes Treatment Notes Treatment Clinical Notes Jul, Acute bronchitis due to other sp ecified organisms (ICD-10 - J20.8) Instructed to use Robitussin or Mucinex for cough, saline or Flonase NS for congestion, Tylenol forpain and fever. Jul,rimary hypertension (ICD-10 - I10)This patient is instructed to consume a healthy, low-fat, low-salt diet. They are also encouraged to continue exercise to achieve/maintain a normal BMI. Jul,Type 2 diabetes mellitus with hyperglycemia, without long-term current use of insulin (ICD-10 - E11.65)This patient is following a comprehensive diabetic treatment [...] BS may increase while experiencing respiratory illness [facility] Other 11-28-2023 Evaluation note* Encounter Date Diagnosis Assessment Notes Treatment Notes Treatment Clinical Notes Jun, Abnormal mammogram of left breas t (ICD-10 - R92.8) [facility] Other 11-27-2023 Evaluation note* Encounter Date Diagnosis Assessment Notes Treatment Notes Treatment Clinical Notes Jun, Autoimmune thyroiditis (ICD-10 - E06.3) Y early TSH [facility] Other 11-20-2023 Evaluation note* Encounter Date Diagnosis Assessment Notes Treatment Notes Treatment Clinical Notes Jun, Primary hypertension (ICD-10 - I 10) [facility] Other 11-13-2023 Evaluation note* Encounter Date Diagnosis [...] reviewed and amended by provider signed below. Jun,Type 2 diabetes mellitus with hyperglycemia, without long-term current use of insulin (ICD-10 - E11.65)This patient is following a comprehensive diabetic treatment [...] Microalbumin, Dilated eye exam and Foot exam Jun,Hyperlipidemia type II (ICD-10 - E78.01)Instructed on diet and exercise with continued statin therapy.Discussed the beneficial effects of lo wering cholesterol in reducing the risk for cerebrovascular and cardiovascular disease. Jun,rimary hypertension (ICD-10 - I10)This patient is instructed to consume a healthy, low-fat, low-salt diet. They are also encouraged to continue exercise to achieve/maintain a normal BMI. Jun,utoimmune thyroiditis (ICD-10 - E06.3)Yearly TSHClinically euthyroid, yearly TSH Jun,Other specified hypothyroidism (ICD-10 - E03.8) Jun,Other obesity due to excess calories (ICD-10 - E66.09)This patient has been instructed on a low-fat, high-fiber diet. They are instructed to reduce calories, portion sizes and snacks. It is recommended that they exercise for 30 minutes, 3-5 times weekly. Jun,ody mass index [BMI] 32.0-32.9, adult (ICD-10 - Z68.32) Jun,Screening mammogram for breast cancer (ICD-10 - Z12.31)Instructed patient on monthly SBE and yearly mammograms. Jun,High risk medication use (ICD-10 - Z79.899) [facility] Other 11-08-2023 Evaluation note* Encounter Date Diagnosis Assessment Notes Treatment Notes Treatment Clinical Notes Jun, Primary hypertension (ICD-10 - I 10) [facility] Other 08-17-2023 Evaluation note* Encounter Date Diagnosis Assessment Notes Treatment Notes Treatment Clinical Notes Mar, Acute left-sided low back pain w ithout sciatica (ICD-10 - M54.50) The patient is instructed to avoid bending, twisting or lifting. They are to use intermittent heat and ice as needed. They may schedule a massage or gentle manipulation. They may safely use Tylenol as needed. Continue Tylenol, Lidocaine patch Handouts for back exercises/stretches given to patient Mar,Lumbar spondylitis (ICD-10 - M46.96)Heat/ice and Tylenol Daily stretching exercises Weight loss Mar,Type 2 diabetes mellitus with hyperglycemia, without long-term current use of insulin (ICD-10 - E11.65)This patient is following a comprehensive diabetic treatment [...] BS 200 Reduce calores/sweets and increase activity [facility] Other 08-02-2023 Evaluation note* Encounter Date Diagnosis Assessment Notes Treatment Notes Treatment Clinical Notes Mar, Type 2 diabetes kel itus with hyperglycemia, without long-term current use of insulin (ICD-10 - E11.65) [facility] Other 05-24-2023 NoteOPERATIVE NOTE OPERATION DATE: 12/26/2022 [...] room in good condition. CC: Loco Denis D.O.[facility] [id number] NoteChief Complaint consultation for anemia HPI Staff [...] inactivated 06/11/2022 Recorded SARS-CoV-2 (more content not included)...[facility] HospitalComment on above:Result Comment: Electronically Signed By: BERNARD ZUNIGA, Raheem Stein\Date and Time Signed: 12/05/22 14:23 [id number] Evaluation note* Encounter Date Diagnosis Assessment Notes Treatment Notes Treatment Clinical Notes Nov, Autoimmune hypothyroidism (ICD-1 0 - E06.3) [facility] Other 04-19-2023 Evaluation note* Encounter Date Diagnosis Assessment Notes Treatment Notes Treatment Clinical Notes Nov, Type 2 diabetes kel itus with hyperglycemia, without long-term current use of insulin (ICD-10 - E11.65) Nov,utoimmune hypothyroidism (ICD-10 - E06.3) [facility] Other 04-18-2023 NotePROCEDURE: XR HIP RT 2 3V W PELVIS HISTORY: Pain in right hip joint COMPARISON: None. FINDINGS: BONES:No fracture, acute abnormality, or significant arthropathy. SOFT TISSUES:No visible soft tissue swelling. EFFUSION:None visible. OTHER: Negative. IMPRESSION: 1. No acute bone abnormality or bone lesion. 2. Minimal degenerative joint disease. Electronically authenticated by: SOTO SCHREIBER Date: 2022-11-20 15:27[facility]03-20-2023 Evaluation note* Encounter Date Diagnosis Assessment Notes Treatment Notes Treatment Clinical Notes Oct, Acute bronchitis due to other sp ecified organisms (ICD-10 - J20.8) Instructed to use Robitussin or Mucinex for cough, saline or Flonase NS for congestion, Tylenol forpain and fever. ER for chest pain or increased SOB Oct,Type 2 diabetes mellitus with hyperglycemia, without long-term current use of insulin (ICD-10 - E11.65)Healthy diet and continue monitoring practices. BS may increase acutely w/ infections, which requires no treatment. Push fluids and rest [facility] [employer] Other Evaluation noteNo InformationNortWellSpan Health [employer] Other Evaluation note* Diagnosis Onset Date Resolution Status Admit Date Hypercholesterolemia acuteNovember 2023 10:46amHypothyroidacuteNovember 2023 10:46am Medicare annual wellness visit, subsequentacuteNovember 2023 10:46am ObesityacuteNovember 2023 10:46amScreening mammogram for breast cancer acuteNov2023 10:46amType 2 diabetes mellitus with diabetic polyneuropathyJune 2018acuteNovember 2023 10:46amType 2 diabetes mellitus with hyperglycemiaacuteNovember 2023 10:46am [facility] Work Phone: Evaluation note* Diagnosis Onset Date Resolution Status Admit Date Anemia acuteMarch 2024 11:10amEssential hypertensionacuteMarch 2024 11:10am HypercholesterolemiaacuteMarch 2024 11:10amHypothyroidacuteMarch 2024 11:10amObesityacuteMarch 2024 11:10amType 2 diabetes mellitus with diabetic polyneuropathyJune 2018acuteMarch 2024 11:10amType 2 diabetes mellitus with hyperglycemiaacuteMarch 2024 11:10am [facility] Work Phone: Evaluation note* Diagnosis Onset Date Resolution Status Admit Date Anemia acuteSeptember 2024 9:52amChronic kidney diseaseacuteSeptember 2024 9:52amEssential hypertensionacuteSeptember 2024 9:52amHypercholesterolemia acuteSeptember 2024 9:52amHypothyroidacuteSeptember 2024 9:52amObesity acuteSeptember 2024 9:52amType 2 diabetes mellitus with diabetic polyneuropathyJune 2018acuteSeptember 2024 9:52amType 2 diabetes mellitus with hyperglycemiaacuteSeptember 2024 9:52[facility] Work Phone: History general Narrative - Reported* Type Description Date Medical History Carotid stenosis, right Medical HistoryMajor depression, recurrentMedical HistoryHigh risk medication useMedical HistoryMildly obeseMedical HistoryHyperlipidemia type IIMedical HistoryAcquired autoimmune hypothyroidismMedical HistoryEssential hypertension Medical HistoryControlled type 2 diabetes mellitus with hyperglycemia, without long-term current use of insulinMedical HistoryChronic vasomotor rhinitisMedical HistoryHistory of nephrolithiasisMedical HistoryLumbosacral spondylosis with radiculopathySurgical HistoryESWL, Kidney, Right02/04/2020Surgical History C-yrfovtr9510/20/2013Surgical LypekfiEdiqyjlqvxn3037Zagvmtkxkhnossb Historysee surgical history [facility] Other Hisotfz general Narrative - Reported* Type Description Date Medical History Carotid stenosis, right Medical HistoryMajor depression, recurrentMedical HistoryHigh risk medication useMedical HistoryMildly obeseMedical HistoryHyperlipidemia type IIMedical HistoryAcquired autoimmune hypothyroidismMedical HistoryEssential hypertension Medical HistoryControlled type 2 diabetes mellitus with hyperglycemia, without long-term current use of insulinMedical HistoryChronic vasomotor rhinitisMedical HistoryHistory of nephrolithiasisMedical HistoryLumbosacral spondylosis with radiculopathySurgical HistoryESWL, Kidney, Right02/04/2020Surgical History C-vwqziht6610/20/2013Surgical FjtdpvnPhkpbaavwwo8687Nauwyuiw HistoryEGD12/2022 Surgical HistoryColonoscopy12/2022Hospitalization Historysee [email or web address] Other Hiseclp general Narrative - Reported* Type Description Date Medical History Carotid stenosis, right Medical HistoryMajor depression, recurrentMedical HistoryHigh risk medication useMedical HistoryMildly obeseMedical HistoryHyperlipidemia type IIMedical HistoryAcquired autoimmune hypothyroidismMedical HistoryEssential hypertension Medical HistoryControlled type 2 diabetes mellitus with hyperglycemia, without long-term current use of insulinMedical HistoryChronic vasomotor rhinitisMedical HistoryHistory of nephrolithiasisMedical HistoryLumbosacral spondylosis with radiculopathySurgical HistoryESWL, Kidney, Right02/04/2020Surgical History C-hxdjdah9710/20/2013Surgical TcvojsxNeyayhbtqrq2337Xbxsobrg HistoryEGD12/2022 Surgical HistoryColonoscopy12/2022Surgical HistoryFNA left rjpvud68/2023 Hospitalization Historysee surgical history [facility] Other Reason for referral (narrative)* Reason Referral for EGD and Colonoscopy Diagnosis 1 Anemia, unspecified type (D64.9) Diagnosis 2 Colon cancer screeni ng (Z12.11) Referral Organization [facility] lindaryn Referring Provider First Name Loco Referring Provider Last Name Adeel Referring Provider Specialty Internal Me dicine Referred Organization [facility] Referred Provider Raheem Santana Referred Address [address] [place], [place],[address] Referred Provider Specialty Surgery Referral Priority Routine [...] CBC, B12, FA, iron, TIBC and ferritin. [facility] Other Reason for referral (narrative)No reason for referral information availableOhio State [facility]ing Hospital Work Phone: Summary Purpose Family History No Family History Records FoundNo Family History Records Found Advance Directives Advance Directive Response Recorded Date/ Time Advance Directives No August 27, 2023 10:49am Advance Directive Response Recorded Date/ Time Advance Directives No August 27, 2023 11:49am Chief Complaint and Reason for Visit Chief [...] with hyperglyce julia June 22, 2024 10:46am Chief Complaint Admit Date 4 month f/u October 13, 2024 11: 10am Reason for Visit Admit Date Anemia October 13, 2024 11: 10am Essential hypertension October 13, 2024 11:10am Hypercholesterolemia October 13, 2024 11 :10am Hypothyroid October 13, 2024 11: 10am Obesity October 13, 2024 11: 10am Type 2 diabetes mellitus with diabetic p olyneuropathy October 13, 2024 11:10am Type 2 diabetes mellitus with hyperglyce julia October 13, 2024 11:10am Chief Complaint Admit Date 4 month April 06, 2025 9:52am Reason for Visit Admit Date Anemia April 06, 2025 9:52am Chronic kidney disease April 06 9:52am Essential hypertension April 06 9:52am Hypercholesterolemia April 06, 2025 9:52am Hypothyroid April 06, 2025 9:52am Obesity April 06, 2025 9:52am Type 2 diabetes mellitus with diabetic p olyneuropathy April 06, 2025 9:52am Type 2 diabetes mellitus with hyperglyce julia April 06, 2025 9:52am Additional Source Comments REASON FOR VISIT (unrecogniz ed section and content) [phone] cold and wheezi ngXray resultsNo InformationLab ResultsLab Resultsback painrefillWELLNESSCologuardRefillNo InformationNo Informationmedication questionWELLNESSWants XraywheezingNo InformationFNA resultsATBrefillMedication ChangeRefills INFORMATION SOURCE (unrecogn ized section and content) DATE CREATED AUTHOR 01/11/2023 [facility] DATE CREATED AUTHOR AUTHOR'S ORGANIZ ATION 01/11/2023 [facility] Care Teams (unrecognized sec tion and content) Team Status: Active Member Role Status Dates Loco Denis DO Primary Care Provider Active Team Status: Inactive Member Role Status Dates Loco Denis DO Primary Care Provide r, Attending Provider Active Start: October 13, 2024 End: October 13, 2024 Team Status: Active Member Role Status Dates Loco Denis , DO Primary Care Provide r, Attending Provider Active Start: June 17, 2024 Team Status: Inactive Member Role Status Dates Loco Denis , DO Primary Care Provide r, Attending Provider Active Start: June 22, 2024 End: June 22, 2024 Team Status: Inactive Member Role Status Dates Loco Denis , Primary Care Provider Active Start: April 06, 2025 End: April 06enjaanish Denis , Attending ProviderActiveStart: April 06, 2025 End: April 06, 2025 Goals (unrecognized section and content) Goals may [...] BE BASED ON THE PRIMARY CLINICAL RECORDS. [facility] [employer] provides no warranty or guarantee of the accuracy or completeness of information in this document.
== END 2025-07-14 13:32 | disposition home or self-care (01) ==
LOC: MAMMO 13:31
PROVIDERS: PCP Internal Medicine; Visit Provider Internal Medicine
DX: Z12.31 Encounter for screening mammogram for malignant neoplasm of breast (principal); Z80.3 Family history of malignant neoplasm of breast
CPT/HCPCS: 77063; 77067